=== PATIENT | female | born 1945 | race Caucasian/White ===

== ENCOUNTER → 2017-03-31 | Outpatient (CLI) | payer MEDICARE, BC ==
--- NOTE | 2017-04-03 06:52 | MM ---
Reason for exam: screening (asymptomatic). Last mammogram was performed 1 year and 3 months ago. History: Patient is postmenopausal. Benign stereotactic core biopsy of the right breast, 2008. Benign excisional biopsy of the right breast, 2006. Excisional biopsy of the right breast. Took estrogen for 1 year. Took progesterone for 1 year. Physical Findings: A clinical breast exam by your physician is recommended on an annual basis and results should be correlated with mammographic findings. MG 3D Screening Mammo W/Cad Bilateral CC and MLO view(s) were taken. Prior study comparison: December 28, 2015, bilateral MG 3d screening mammo w/cad. October 27, 2014, bilateral MG screening mammo w CAD. The breast tissue is heterogeneously dense. This may lower the sensitivity of mammography. Finding: There are typically benign diffuse/scattered calcifications in both breasts. No suspicious finding. No significant changes in finding since December 28, 2015 and October 27, 2014. ASSESSMENT: Benign, BI-RAD 2 RECOMMENDATION: Routine screening mammogram of both breasts in 1 year.
== END | disposition home or self-care (01) ==
LOC: RADMAMWWP 07:59
PROVIDERS: ATTEND Family Medicine
DX: Z12.31 Encounter for screening mammogram for malignant neoplasm of breast (principal)
CPT/HCPCS: 77063; G0202

== ENCOUNTER → 2017-04-20 | Outpatient (CLI) | payer MEDICARE, BC ==
--- NOTE | 2017-04-20 11:29 | FL ---
EXAMINATION TYPE: FL barium swallow DATE OF EXAM: 04/20/2017 CLINICAL HISTORY: Dysphagia per order. History of hiatal hernia and distal esophageal stricture on se veral prior scopes most recent beginning of this year. Patient has symptoms of reflux with vomiting. TECHNIQUE: A double contrast esophagram is performed utilizing air and barium. A total of 9 seconds of fluoroscopic time was utilized during procedure. 29 spot images were acquired and sent to PACS. COMPARISON: Prior upper GI study September 04, 2015 FINDINGS: The esophagus shows diffuse prominence or dilatation with abnormal secondary and tertiary c ontractions redemonstrated. Findings were more pronounced on prone imaging. Small sliding-type hiatal hernia was redemonstrated. There is persistent smooth narrowing in which a mild stricture is not exc luded at gastroesophageal junction. No significant gastroesophageal reflux was seen during real time performance of this study today. IMPRESSION: Similar findings to prior study there is esophageal dysmotility with small sliding-type h iatal hernia and perhaps mild stricture at gastroesophageal junction.
== END | disposition home or self-care (01) ==
LOC: RADFLMAIN 10:01
PROVIDERS: ATTEND Internal Medicine Gastroenterology
DX: K44.9 Diaphragmatic hernia without obstruction or gangrene (principal); K22.4 Dyskinesia of esophagus; R13.10 Dysphagia, unspecified
CPT/HCPCS: 74220

== ENCOUNTER → 2018-05-08 | Outpatient (CLI) | payer MEDICARE, BC ==
--- NOTE | 2018-05-10 09:35 | MM ---
Reason for exam: screening (asymptomatic). Last mammogram was performed 1 year and 1 month ago. History: Patient is postmenopausal. Benign stereotactic core biopsy of the right breast, 2008. Benign excisional biopsy of the right breast, 2006. Excisional biopsy of the right breast. Took estrogen for 1 year. Took progesterone for 1 year. Physical Findings: A clinical breast exam by your physician is recommended on an annual basis and results should be correlated with mammographic findings. MG 3D Screening Mammo W/Cad Bilateral CC, MLO, and XCCL view(s) were taken. Prior study comparison: March 31, 2017, bilateral MG 3d screening mammo w/cad. December 28, 2015, bilateral MG 3d screening mammo w/cad. Finding: There is a new typically benign 15 x 8 mm equal density (isodense), circumscribed oval mass located 7.5 cm from the nipple in the 8 o'clock lower outer quadrant, middle position of the right breast. New finding since March 31, 2017 and December 28, 2015. ASSESSMENT: Incomplete: need additional imaging evaluation, BI-RAD 0 RECOMMENDATION: Special view mammogram and ultrasound of the right breast. [facility] will attempt to contact patient to return for supplemental views and ultrasound.
== END | disposition home or self-care (01) ==
LOC: RADMAMWWP 09:11
PROVIDERS: ATTEND Family Medicine
DX: Z12.31 Encounter for screening mammogram for malignant neoplasm of breast (principal)
CPT/HCPCS: 77063; 77067

== ENCOUNTER → 2018-05-17 | Outpatient (CLI) | payer MEDICARE, BC ==
--- NOTE | 2018-05-17 14:37 | MM ---
Reason for exam: additional evaluation requested from abnormal screening. Last mammogram was performed less than 1 month ago. History: Patient is postmenopausal. Benign stereotactic core biopsy of the right breast, 2008. Benign excisional biopsy of the right breast, 2006. Excisional biopsy of the right breast. Took estrogen for 1 year. Took progesterone for 1 year. Physical Findings: Nurse did not find any significant physical abnormalities on exam. MG 3D Work Up W/Cad RT Spot compression CC, spot compression MLO, and ML view(s) were taken of the right breast. Prior study comparison: May 08, 2018, bilateral MG 3d screening mammo w/cad. March 31, 2017, bilateral MG 3d screening mammo w/cad. Finding: There is a 12 mm circumscribed oval mass in the right breast persists on additional views. These results were verbally communicated with the patient and result sheet given to the patient on 05/17/18. ASSESSMENT: Incomplete: need additional imaging evaluation, BI-RAD 0 RECOMMENDATION: Ultrasound of the right breast.
--- NOTE | 2018-05-17 14:39 | USB ---
Reason for exam: additional evaluation requested from abnormal screening. History: Patient is postmenopausal. Benign stereotactic core biopsy of the right breast, 2008. Benign excisional biopsy of the right breast, 2006. Excisional biopsy of the right breast. Took estrogen for 1 year. Took progesterone for 1 year. US Breast Workup Limited RT Right limited breast ultrasound including focal area of concern, retroareolar and axilla demonstrates a 0.6 x 0.3 x 0.4cm oval, cystic lesion at 11 o'clock, a 1.1 x 0.6 x 0.8cm oval, cystic lesion at 9 o'clock believed to correspond to mammographic abnormality, axilla nodes and multiple large calcifications. These results were verbally communicated with the patient and result sheet given to the patient on 05/17/18. ASSESSMENT: Benign, BI-RAD 2 RECOMMENDATION: Return to routine screening mammogram schedule for both breasts.
== END | disposition home or self-care (01) ==
LOC: RADMAMWWP 12:55
PROVIDERS: ATTEND Family Medicine
DX: R92.8 Other abnormal and inconclusive findings on diagnostic imaging of breast (principal)
CPT/HCPCS: 77065; 76642; G0279; 77061

== ENCOUNTER 2018-09-18 11:56 | Inpatient (IN) | payer MEDICARE, BC ==
[2018-09-18 14:03] LABS: Appearance,Urine Clear (Clear); Bilirubin,Urine Negative (Negative); Blood,Urine Negative (Negative); Color,Urine Light Yellow; Glucose,Urine (UA) Negative (Negative); Ketones,Urine Negative (Negative); Leukocyte Esterase,Urine Trace (Negative); Nitrite,Urine Negative (Negative); Protein,Urine Negative (Negative); RBC,Urine 10 /hpf (0-5); Specific Gravity,Urine 1.006 (1.001-1.035); Squamous Epithelial Cell,Urine 1 /hpf (0-4); Urobilinogen,Urine <2.0 mg/dL (<2.0)
[2018-09-18 14:13] LABS: Amphetamine Screen,Urine Not Detected (NotDetected); Barbiturate Screen,Urine Not Detected (NotDetected); Benzodiazepines Screen,Urine Detected (NotDetected); Cocaine Screen,Urine Not Detected (NotDetected); Methadone Screen, Urine Not Detected (NotDetected); Opiate Screen,Urine Not Detected (NotDetected); Oxycodone Screen, Urine Not Detected (NotDetected); Phencyclidine Screen,Urine Not Detected (NotDetected); Tricyclic Antidepressant,Urine Not Detected (NotDetected); Urn Cannabinoid Scrn Not Detected (NotDetected)
[2018-09-18] MEDS ORDERED: LORazepam 1 MG TAB PO STA (14:18)
--- NOTE | 2018-09-18 14:30 | XR ---
EXAMINATION TYPE: XR chest 2V DATE OF EXAM: 09/18/2018 COMPARISON: Chest x-ray June 13, 2016 HISTORY: History of hypertension with chest pain. TECHNIQUE: Frontal and lateral views of the chest are obtained. FINDINGS: Elevated left hemidiaphragm is now present. There is right infrahilar linear atelectasis or scarring. Left lung is clear. No pleural effusion or pneumothorax is evident bilaterally.. The card iac silhouette size is upper limits of normal. The osseous structures are intact. Cholecystectomy c lips are noted on lateral view. IMPRESSION: No suspicious acute pulmonary process.
[2018-09-18 14:38] LABS: Basophils # (A) 0.1 k/uL (0-0.2); Basophils % (A) 1 %; Eosinophils # (A) 0.4 k/uL (0-0.7); Eosinophils % (A) 5 %; HGB 14.3 gm/dL (11.4-16.0); Lymphocytes # (A) 1.9 k/uL (1.0-4.8); Lymphocytes % (A) 24 %; MCH 30.1 pg (25.0-35.0); MCHC 32.5 g/dL (31.0-37.0); MCV 92.6 fL (80.0-100.0); Mean Platelet Volume 6.5; Monocytes # (A) 0.5 k/uL (0-1.0); Monocytes % (A) 7 %; Neutrophils # (A) 4.7 k/uL (1.3-7.7); Neutrophils % (A) 61 %; Platelet Count 244 k/uL (150-450); RBC 4.76 m/uL (3.80-5.40); RDW 14.1 % (11.5-15.5); WBC 7.6 k/uL (3.8-10.6)
[2018-09-18 14:57] LABS: Albumin 4.2 g/dL (3.5-5.0); Calcium 9.5 mg/dL (8.4-10.2); Potassium 4.5 mmol/L (3.5-5.1); Total Bilirubin 0.4 mg/dL (0.2-1.3); Total Protein 7.4 g/dL (6.3-8.2)
[2018-09-18] MEDS ORDERED: ACETAMINOPHEN TAB 325 MG TAB PO PRN (15:33)
[2018-09-18] MEDS ORDERED: MAGNESIUM HYDROXIDE 2,400 MG/10 ML CUP PO PRN (15:33)
--- NOTE | 2018-09-18 17:04 | ED ---
Psych HPI - General Chief Complaint: Psychiatric Symptoms Stated Complaint: Mental health Time Seen by Provider: 09/18/18 12:48 Source: patient Mode of arrival: ambulatory - History of Present Illness Initial Comments: 73-year-old female presenting today for chief complaint depression and suicidal thoughts and plan. Patient states she struggled depression since 1999, she states she has had previous ECT therapy, she states the last time was in the year 1999. She states she is on multiple medications for depression. She states she has been compliant with these medications. Patient states she recently lost her brother from suicide, and is fighting with her daughter which has caused increased depression. Patient denies any abuse at home, homicidal ideations. Patient states she does have a plan for suicide, she states that she was in her car with a closed garage and allowed the exhaust to kill her. Patient states she plan to do this tomorrow as her would be out of town. Patient denies ingesting any acetaminophen or salicylates states. She denies any self-harm. Patient states she does have on-and-off chest pain, she states this has been chronic ongoing for years and she has been evaluated by cardiology regularly. She denies any current chest pain, dyspnea, dyspnea on exertion. Remaining ROS (-), patient denies any recent fever, chills, back pain , abdominal pain, nausea or vomiting, numbness or tingling, dysuria or hematuria , constipation or diarrhea, headaches or visual changes, or any other complaints. - Related Data Home Medications Medication Instructions Recorded Confirmed Aspirin 81 mg PO HS 10/22/15 09/18/18 Docusate [Colace] 100 mg PO QAM 10/22/15 09/18/18 LORazepam [Ativan] 1 mg PO BID PRN 10/22/15 09/18/18 Oxybutynin Chloride [Ditropan] 5 mg PO QAM 10/22/15 09/18/18 Polyethylene Glycol 3350 [Miralax] 17 gm PO DAILY 10/22/15 09/18/18 Ranitidine HCl [Zantac] 150 mg PO HS 10/22/15 09/18/18 Simvastatin [Zocor] 20 mg PO HS 10/22/15 09/18/18 Vitamin E (Dl,Tocopheryl Acet) 400 unit PO HS 10/22/15 09/18/18 [Vitamin E] amLODIPine BESYLATE [Norvasc] 5 mg PO DAILY 10/22/15 09/18/18 lamoTRIgine [Lamotrigine] 100 mg PO QAM 10/22/15 09/18/18 lamoTRIgine [Lamotrigine] 200 mg PO PC-SUPPER 10/22/15 09/18/18 Atenolol [Tenormin] 25 mg PO DAILY 06/13/16 09/18/18 Cholecalciferol [Vitamin D3] 2,000 unit PO DAILY 06/13/16 09/18/18 Cyanocobalamin [Vitamin B-12] 1,000 mcg PO DAILY 06/13/16 09/18/18 DULoxetine HCL [Cymbalta] 60 mg PO BID 06/13/16 09/18/18 Levothyroxine Sodium [Synthroid] 88 mcg PO DAILY 06/13/16 09/18/18 traZODone HCL 100 mg PO HS 06/13/16 09/18/18 Biotin 5 mg PO DAILY 09/18/18 09/18/18 L.acidoph,Paracasei, B.lactis 1 cap PO DAILY 09/18/18 09/18/18 [Probiotic] Oxybutynin Chloride [Ditropan] 10 mg PO HS 09/18/18 09/18/18 Allergies Allergy/AdvReac Type Severity Reaction Status Date / Time aripiprazole [From Abilify] Allergy Nausea & Verified 09/18/18 16:31 Vomiting chlorpromazine HCl Allergy "PASSED Verified 09/18/18 16:31 [From Thorazine] OUT" codeine Allergy SEVERE Verified 09/18/18 16:31 VOMITNG, PASSED OUT Review of Systems ROS Statement: Those systems with pertinent positive or pertinent negative responses have been documented in the HPI. ROS Other: All systems not noted in ROS Statement are negative. Past Medical History Past Medical History: GERD/Reflux, Hyperlipidemia, Hypertension, Osteoarthritis (OA), Thyroid Disorder History of Any Multi-Drug Resistant Organisms: None Reported Past Surgical History: Hysterectomy, Joint Replacement, Tubal Ligation Additional Past Surgical History / Comment(s): CATARACT -BILATERAL , RIGHT SHOULDER, TOTAL LEFT KNEE. Esophageal opening surgery, robotic. Past Anesthesia/Blood Transfusion Reactions: Motion Sickness Smoking Status: Never smoker - Past Family History Mother Family Medical History: Coronary Artery Disease (CAD), CVA/TIA General Exam - General Exam Comments Initial Comments: General: The patient is awake and alert, in no distress, and does not appear acutely ill. Eye: +3 mm pupils are equal, round and reactive to light, extra-ocular movements are intact. No nystagmus. There is normal conjunctiva bilaterally. No signs of icterus. Ears, nose, mouth and throat: There are moist mucous membranes and no oral lesions. Neck: The neck is supple, there is no tenderness or JVD. Cardiovascular: There is a regular rate and rhythm. No murmur, rub or gallop is appreciated. Respiratory: Lungs are clear to auscultation, respirations are non-labored, breath sounds are equal. No wheezes, stridor, rales, or rhonchi. Gastrointestinal: Soft, non-distended, non-tender abdomen without masses or organomegaly noted. There is no rebound or guarding present. . Bowel sounds are unremarkable. Musculoskeletal: Normal ROM, no tenderness. Strength 5/5. Sensation intact. Pulses equal bilaterally 2+. Neurological: A&O x 3. CN II-XII intact, There are no obvious motor or sensory deficits. Coordination appears grossly intact. Speech is normal. Skin: Skin is warm and dry and no rashes or lesions are noted. Psychiatric: Cooperative, flat affect, appears sad-tearful. Limitations: no limitations Course Vital Signs 09/18/18 12:17 Temperature 98.4 F Pulse Rate 68 Respiratory 18 Rate Blood Pressure 113/77 O2 Sat by Pulse 95 Oximetry - Reevaluation(s) Reevaluation #1: Patient did complain of chest pain, she states this happens she gets anxiety and usually it is alleviated by Ativan. EKG was obtained at this time revealing normal sinus, normal EKG. Patient troponin negative. 09/18/18 Medical Decision Making - Medical Decision Making 73-year-old female presented for suicidal ideations with plan. Patient is medically cleared for EPS evaluation. EPS recommended admission, but was available on floor. Patient pending admission to floor, remained stable. Patient was given Ativan in the emergency department for anxiety. She states this relieved symptoms. Patient denies any current chest pain. ROS (-) aside from depression/suicidal thoughts. Patient was transferred to floor in stable condition. - Lab Data Result diagrams: 09/18/18 14:05 09/18/18 14:05 Lab Results 09/18/18 09/18/18 09/18/18 Range/Units 12:34 14:05 14:05 WBC 7.6 (3.8-10.6) k/uL RBC 4.76 (3.80-5.40) m/uL Hgb 14.3 (11.4-16.0) gm/dL Hct 44.0 (34.0-46.0) % MCV 92.6 (80.0-100.0) fL MCH 30.1 (25.0-35.0) pg MCHC 32.5 (31.0-37.0) g/dL RDW 14.1 (11.5-15.5) % Plt Count 244 (150-450) k/uL Neutrophils % 61 % Lymphocytes % 24 % Monocytes % 7 % Eosinophils % 5 % Basophils % 1 % Neutrophils # 4.7 (1.3-7.7) k/uL Lymphocytes # 1.9 (1.0-4.8) k/uL Monocytes # 0.5 (0-1.0) k/uL Eosinophils # 0.4 (0-0.7) k/uL Basophils # 0.1 (0-0.2) k/uL Sodium 145 (137-145) mmol/L Potassium 4.5 (3.5-5.1) mmol/L Chloride 107 (98-107) mmol/L Carbon Dioxide 29 (22-30) mmol/L Anion Gap 9 mmol/L BUN 18 H (7-17) mg/dL Creatinine 0.92 (0.52-1.04) mg/dL Est GFR (CKD-EPI)AfAm 73 (>60 ml/min/1.73 sqM) Est GFR (CKD-EPI)NonAf 63 (>60 ml/min/1.73 sqM) Glucose 80 (74-99) mg/dL Calcium 9.5 (8.4-10.2) mg/dL Total Bilirubin 0.4 (0.2-1.3) mg/dL AST 24 (14-36) U/L ALT 35 (9-52) U/L Alkaline Phosphatase 76 (38-126) U/L Troponin I (0.000-0.034) ng/mL Total Protein 7.4 (6.3-8.2) g/dL Albumin 4.2 (3.5-5.0) g/dL Urine Color Light Yellow Urine Appearance Clear (Clear) Urine pH 6.0 (5.0-8.0) Ur Specific Rawlings 1.006 (1.001-1.035) Urine Protein Negative (Negative) Urine Glucose (UA) Negative (Negative) Urine Ketones Negative (Negative) Urine Blood Negative (Negative) Urine Nitrite Negative (Negative) Urine Bilirubin Negative (Negative) Urine Urobilinogen <2.0 (<2.0) mg/dL Ur Leukocyte Esterase Trace H (Negative) Urine RBC 10 H (0-5) /hpf Urine WBC 4 (0-5) /hpf Ur Squamous Epith Cells 1 (0-4) /hpf Urine Opiates Screen Not Detected (NotDetected) Ur Oxycodone Screen Not Detected (NotDetected) Urine Methadone Screen Not Detected (NotDetected) Ur Propoxyphene Screen Not Detected (NotDetected) Ur Barbiturates Screen Not Detected (NotDetected) U Tricyclic Antidepress Not Detected (NotDetected) Ur Phencyclidine Scrn Not Detected (NotDetected) Ur Amphetamines Screen Not Detected (NotDetected) U Methamphetamines Scrn Not Detected (NotDetected) U Benzodiazepines Scrn Detected H (NotDetected) Urine Cocaine Screen Not Detected (NotDetected) U Marijuana (THC) Screen Not Detected (NotDetected) 09/18/18 Range/Units 14:05 WBC (3.8-10.6) k/uL RBC (3.80-5.40) m/uL Hgb (11.4-16.0) gm/dL Hct (34.0-46.0) % MCV (80.0-100.0) fL MCH (25.0-35.0) pg MCHC (31.0-37.0) g/dL RDW (11.5-15.5) % Plt Count (150-450) k/uL Neutrophils % % Lymphocytes % % Monocytes % % Eosinophils % % Basophils % % Neutrophils # (1.3-7.7) k/uL Lymphocytes # (1.0-4.8) k/uL Monocytes # (0-1.0) k/uL Eosinophils # (0-0.7) k/uL Basophils # (0-0.2) k/uL Sodium (137-145) mmol/L Potassium (3.5-5.1) mmol/L Chloride (98-107) mmol/L Carbon Dioxide (22-30) mmol/L Anion Gap mmol/L BUN (7-17) mg/dL Creatinine (0.52-1.04) mg/dL Est GFR (CKD-EPI)AfAm (>60 ml/min/1.73 sqM) Est GFR (CKD-EPI)NonAf (>60 ml/min/1.73 sqM) Glucose (74-99) mg/dL Calcium (8.4-10.2) mg/dL Total Bilirubin (0.2-1.3) mg/dL AST (14-36) U/L ALT (9-52) U/L Alkaline Phosphatase (38-126) U/L Troponin I <0.012 (0.000-0.034) ng/mL Total Protein (6.3-8.2) g/dL Albumin (3.5-5.0) g/dL Urine Color Urine Appearance (Clear) Urine pH (5.0-8.0) Ur Specific Rawlings (1.001-1.035) Urine Protein (Negative) Urine Glucose (UA) (Negative) Urine Ketones (Negative) Urine Blood (Negative) Urine Nitrite (Negative) Urine Bilirubin (Negative) Urine Urobilinogen (<2.0) mg/dL Ur Leukocyte Esterase (Negative) Urine RBC (0-5) /hpf Urine WBC (0-5) /hpf Ur Squamous Epith Cells (0-4) /hpf Urine Opiates Screen (NotDetected) Ur Oxycodone Screen (NotDetected) Urine Methadone Screen (NotDetected) Ur Propoxyphene Screen (NotDetected) Ur Barbiturates Screen (NotDetected) U Tricyclic Antidepress (NotDetected) Ur Phencyclidine Scrn (NotDetected) Ur Amphetamines Screen (NotDetected) U Methamphetamines Scrn (NotDetected) U Benzodiazepines Scrn (NotDetected) Urine Cocaine Screen (NotDetected) U Marijuana (THC) Screen (NotDetected) - EKG Data EKG Comments: A 12-lead EKG was performed and shows the following: Rate is 62bpm, and rhythm is normal sinus. There are normal QRS complexes and normal R-wave progression. ST segments have no elevation or depression, and MT segments appear normal. Disposition Clinical Impression: Suicidal thoughts Disposition: ADMITTED IP TO THIS HOSP Condition: Stable Is patient prescribed a controlled substance at d/c from ED?: No Decision to Admit Reason: Admit from EC Decision Date: 09/18/18 Decision Time: 14:00
[2018-09-18] MEDS: ATORVASTATIN 10 MG TAB PO SCH (20:51)
[2018-09-18] MEDS: ASPIRIN 81 MG PO SCH (20:51)
[2018-09-18] MEDS: DULoxetine HCL 60 MG CAPSULE.DR PO SCH (20:51)
[2018-09-18] MEDS: FAMOTIDINE 20 MG TAB PO SCH (20:51)
[2018-09-18] MEDS: lamoTRIgine 100 MG TAB PO SCH (20:51)
[2018-09-18] MEDS: VITAMIN E (DL,TOCOPHERYL ACET) 400 UNIT CAP PO SCH (20:52)
[2018-09-18] MEDS: OXYBUTYNIN CHLORIDE 5 MG TAB PO SCH (20:52)
[2018-09-18] MEDS: LORazepam 1 MG TAB PO PRN (20:57)
[2018-09-18] MEDS ORDERED: traZODone HCL 50 MG TAB PO SCH (21:00)
[2018-09-19] MEDS: LEVOTHYROXINE 88 MCG TAB PO SCH (06:25)
[2018-09-19] MEDS: ATENOLOL 25 MG TAB PO SCH (08:01)
[2018-09-19] MEDS: OXYBUTYNIN CHLORIDE 5 MG TAB PO SCH ×2 (08:01→21:20)
[2018-09-19] MEDS: POLYETHYLENE GLYCOL 3350 17 GM POWD.PACK PO SCH (08:01)
[2018-09-19] MEDS: amLODIPine 5 MG TAB PO SCH (08:01)
[2018-09-19] MEDS: DOCUSATE 100 MG CAP PO SCH (08:01)
[2018-09-19] MEDS: DULoxetine HCL 60 MG CAPSULE.DR PO SCH (08:01)
[2018-09-19] MEDS: lamoTRIgine 100 MG TAB PO SCH ×2 (08:01→21:18)
[2018-09-19] MEDS ORDERED: NON-FORMULARY DRUG (Biotin [Biotin] 5 MG) PO SCH (09:00)
[2018-09-19 11:18] VITALS: BMI 31.2
[2018-09-19] MEDS: CYANOCOBALAMIN 500 MCG TAB PO SCH (12:05)
[2018-09-19] MEDS: CHOLECALCIFEROL 1,000 UNIT TAB PO SCH (12:05)
--- NOTE | 2018-09-19 12:36 | P.HP ---
Psychiatric H&P - . H&P Date: 09/19/18 History & Physical: Allergies Allergy/AdvReac Type Severity Reaction Status Date / Time aripiprazole [From Abilify] Allergy Nausea & Verified 09/18/18 16:31 Vomiting chlorpromazine HCl Allergy "PASSED Verified 09/18/18 16:31 [From Thorazine] OUT" codeine Allergy SEVERE Verified 09/18/18 16:31 VOMITNG, PASSED OUT Vital Signs Temp 98.5 F 09/19/18 06:14 Pulse 65 09/19/18 06:14 Resp 16 09/19/18 06:14 BP 123/64 09/19/18 06:14 Pulse Ox 95 09/18/18 12:17 Intake & Output 09/18/18 09/19/18 09/19/18 18:59 06:59 18:59 Intake Total 10 Balance 10 Weight 72.575 kg Intake: Amount of Fluid Infused ( 10 ml) Laboratory Last Values WBC 7.6 k/uL (3.8-10.6) 09/18/18 14:05 RBC 4.76 m/uL (3.80-5.40) 09/18/18 14:05 Hgb 14.3 gm/dL (11.4-16.0) 09/18/18 14:05 Hct 44.0 % (34.0-46.0) 09/18/18 14:05 MCV 92.6 fL (80.0-100.0) 09/18/18 14:05 MCH 30.1 pg (25.0-35.0) 09/18/18 14:05 MCHC 32.5 g/dL (31.0-37.0) 09/18/18 14:05 RDW 14.1 % (11.5-15.5) 09/18/18 14:05 Plt Count 244 k/uL (150-450) 09/18/18 14:05 Neutrophils % 61 % 09/18/18 14:05 Lymphocytes % 24 % 09/18/18 14:05 Monocytes % 7 % 09/18/18 14:05 Eosinophils % 5 % 09/18/18 14:05 Basophils % 1 % 09/18/18 14:05 Neutrophils # 4.7 k/uL (1.3-7.7) 09/18/18 14:05 Lymphocytes # 1.9 k/uL (1.0-4.8) 09/18/18 14:05 Monocytes # 0.5 k/uL (0-1.0) 09/18/18 14:05 Eosinophils # 0.4 k/uL (0-0.7) 09/18/18 14:05 Basophils # 0.1 k/uL (0-0.2) 09/18/18 14:05 Sodium 145 mmol/L (137-145) 09/18/18 14:05 Potassium 4.5 mmol/L (3.5-5.1) 09/18/18 14:05 Chloride 107 mmol/L (98-107) 09/18/18 14:05 Carbon Dioxide 29 mmol/L (22-30) 09/18/18 14:05 Anion Gap 9 mmol/L 09/18/18 14:05 BUN 18 mg/dL (7-17) H 09/18/18 14:05 Creatinine 0.92 mg/dL (0.52-1.04) 09/18/18 14:05 Est GFR (CKD-EPI)AfAm 73 (>60 ml/min/1.73 sqM) 09/18/18 14:05 Est GFR (CKD-EPI)NonAf 63 (>60 ml/min/1.73 sqM) 09/18/18 14:05 Glucose 80 mg/dL (74-99) 09/18/18 14:05 Calcium 9.5 mg/dL (8.4-10.2) 09/18/18 14:05 Total Bilirubin 0.4 mg/dL (0.2-1.3) 09/18/18 14:05 AST 24 U/L (14-36) 09/18/18 14:05 ALT 35 U/L (9-52) 09/18/18 14:05 Alkaline Phosphatase 76 U/L (38-126) 09/18/18 14:05 Troponin I <0.012 ng/mL (0.000-0.034) 09/18/18 14:05 Total Protein 7.4 g/dL (6.3-8.2) 09/18/18 14:05 Albumin 4.2 g/dL (3.5-5.0) 09/18/18 14:05 Triglycerides 114 mg/dL (<150) 09/19/18 07:22 Cholesterol 162 mg/dL (<200) 09/19/18 07:22 LDL Cholesterol, Calc 102 mg/dL (0-99) H 09/19/18 07:22 HDL Cholesterol 37 mg/dL (40-60) L 09/19/18 07:22 TSH 0.200 mIU/L (0.465-4.680) L 09/19/18 07:22 Urine Color Light Yellow 09/18/18 12:34 Urine Appearance Clear (Clear) 09/18/18 12:34 Urine pH 6.0 (5.0-8.0) 09/18/18 12:34 Ur Specific [place] 1.006 (1.001-1.035) 09/18/18 12:34 Urine Protein Negative (Negative) 09/18/18 12:34 Urine Glucose (UA) Negative (Negative) 09/18/18 12:34 Urine Ketones Negative (Negative) 09/18/18 12:34 Urine Blood Negative (Negative) 09/18/18 12:34 Urine Nitrite Negative (Negative) 09/18/18 12:34 Urine Bilirubin Negative (Negative) 09/18/18 12:34 Urine Urobilinogen <2.0 mg/dL (<2.0) 09/18/18 12:34 Ur Leukocyte Esterase Trace (Negative) H 09/18/18 12:34 Urine RBC 10 /hpf (0-5) H 09/18/18 12:34 Urine WBC 4 /hpf (0-5) 09/18/18 12:34 Ur Squamous Epith Cells 1 /hpf (0-4) 09/18/18 12:34 Urine Opiates Screen Not Detected (NotDetected) 09/18/18 12:34 Ur Oxycodone Screen Not Detected (NotDetected) 09/18/18 12:34 Urine Methadone Screen Not Detected (NotDetected) 09/18/18 12:34 Ur Propoxyphene Screen Not Detected (NotDetected) 09/18/18 12:34 Ur Barbiturates Screen Not Detected (NotDetected) 09/18/18 12:34 U Tricyclic Antidepress Not Detected (NotDetected) 09/18/18 12:34 Ur Phencyclidine Scrn Not Detected (NotDetected) 09/18/18 12:34 Ur Amphetamines Screen Not Detected (NotDetected) 09/18/18 12:34 U Methamphetamines Scrn Not Detected (NotDetected) 09/18/18 12:34 U Benzodiazepines Scrn Detected (NotDetected) H 09/18/18 12:34 Urine Cocaine Screen Not Detected (NotDetected) 09/18/18 12:34 U Marijuana (THC) Screen Not Detected (NotDetected) 09/18/18 12:34 Assessment and Plan Assessment: 73-year-old female presenting today for chief complaint depression and suicidal thoughts and plan. Patient states she struggled depression since 1999, she states she has had previous ECT therapy, she states the last time was in the year 1999. She states she is on multiple medications for depression. She states she has been compliant with these medications. Patient states she recently lost her brother from suicide, and is fighting with her daughter which has caused increased depression. Patient denies any abuse at home, homicidal ideations. Patient states she does have a plan for suicide, she states that she was in her car with a closed garage and allowed the exhaust to kill her. Patient states she plan to do this tomorrow as her would be out of town. Patient denies ingesting any acetaminophen or salicylates states. She denies any self-harm. Patient states she does have on-and-off chest pain, she states this has been chronic ongoing for years and she has been evaluated by cardiology regularly. She denies any current chest pain, dyspnea, dyspnea on exertion. Remaining ROS (-), patient denies any recent fever, chills, back pain , abdominal pain, nausea or vomiting, numbness or tingling, dysuria or hematuria , constipation or diarrhea, headaches or visual changes, or any other complaints. pt states that she came to ER because she was having a "mental breakdown." pt reports, "I just couldn't handle everything this week." pt is very tearful while speaking and frequently states that she is a "problem" and "burden" to everyone. pt reports that her brother completed suicide about 2 months ago and she's having difficulty coping with this pt reports that her plan is to wait until goes to work, lock herself in the garage, and turn the car on. pt denies previous suicide attempts, but states , "I thought about it a lot." pt states that she sees dark shapes moving around sometimes, but admits to current visual hallucinations. pt also reports that she occasionally feels as though there is "stuff crawling up my arm." pt reports that she has a lot of anxiety about her daughter and the government that seems to be a fixed delusion. pt states, "Anxiety about things I have no control over." pt ruminates over the anxieties and it sometimes causes problems with her sleep. pt states that she has trouble with her sleeping due to racing thoughts and anxiety. pt reports, "I don't even sleep with my anymore because I'm up and down." pt denies change in appetite, but does report that she had thoracic surgery to "fix where my esophagus got narrow" and that this sometimes causes difficulty swallowing. pt states, "My brothers won't talk to me...my daughter doesn't like me. My brothers live in [place], so I guess it's hard, but they can call me." pt also states, "Only my one daughter and would notice if I was gone." pt began to cry harder when asked about support system and was unable to discuss supports further. - Related Data Home Medications Medication Instructions Recorded Confirmed Aspirin 81 mg PO HS 10/22/15 09/18/18 Docusate [Colace] 100 mg PO QAM 10/22/15 09/18/18 LORazepam [Ativan] 1 mg PO BID PRN 10/22/15 09/18/18 Oxybutynin Chloride [Ditropan] 5 mg PO QAM 10/22/15 09/18/18 Polyethylene Glycol 3350 [Miralax] 17 gm PO DAILY 10/22/15 09/18/18 Ranitidine HCl [Zantac] 150 mg PO HS 10/22/15 09/18/18 Simvastatin [Zocor] 20 mg PO HS 10/22/15 09/18/18 Vitamin E (Dl,Tocopheryl Acet) 400 unit PO HS 10/22/15 09/18/18 [Vitamin E] amLODIPine BESYLATE [Norvasc] 5 mg PO DAILY 10/22/15 09/18/18 lamoTRIgine [Lamotrigine] 100 mg PO QAM 10/22/15 09/18/18 lamoTRIgine [Lamotrigine] 200 mg PO PC-SUPPER 10/22/15 09/18/18 Atenolol [Tenormin] 25 mg PO DAILY 06/13/16 09/18/18 Cholecalciferol [Vitamin D3] 2,000 unit PO DAILY 06/13/16 09/18/18 Cyanocobalamin [Vitamin B-12] 1,000 mcg PO DAILY 06/13/16 09/18/18 DULoxetine HCL [Cymbalta] 60 mg PO BID 06/13/16 09/18/18 Levothyroxine Sodium [Synthroid] 88 mcg PO DAILY 06/13/16 09/18/18 traZODone HCL 100 mg PO HS 06/13/16 09/18/18 Biotin 5 mg PO DAILY 09/18/18 09/18/18 L.acidoph,Paracasei, B.lactis 1 cap PO DAILY 09/18/18 09/18/18 [Probiotic] Oxybutynin Chloride [Ditropan] 10 mg PO HS 09/18/18 09/18/18 Allergies Allergy/AdvReac Type Severity Reaction Status Date / Time aripiprazole [From Abilify] Allergy Nausea & Verified 09/18/18 16:31 Vomiting chlorpromazine HCl Allergy "PASSED Verified 09/18/18 16:31 [From Thorazine] OUT" codeine Allergy SEVERE Verified 09/18/18 16:31 VOMITNG, PASSED OUT Past Medical History Past Medical History: GERD/Reflux, Hyperlipidemia, Hypertension, Osteoarthritis (OA), Thyroid Disorder History of Any Multi-Drug Resistant Organisms: None Reported Past Surgical History: Hysterectomy, Joint Replacement, Tubal Ligation Additional Past Surgical History / Comment(s): CATARACT -BILATERAL , RIGHT SHOULDER, TOTAL LEFT KNEE. Esophageal opening surgery, robotic. Past Anesthesia/Blood Transfusion Reactions: Motion Sickness Smoking Status: Never smoker - Past Family History Mother Family Medical History: Coronary Artery Disease (CAD), CVA/TIA Musculoskeletal Examination - Abnormal/Involuntary Movements: [tremors] Strength: [greater than antigravity (greater than/equal to 3/5) in all extremities, weakness:] Muscle Tone: [no impairment, dystonia, hypertonic/myoclonus, rigidity, flaccid] Gait: [grossly normal, antalgic, limping, in wheelchair, wide-based] Station: [grossly normal, unsteady, in wheelchair] Mental Status Examination - General Appearance: [ casual, appears older than stated age Speech/Language: [ slow soft,] Attitude/Behavior: [ guarded, irritable, withdrawn, indifferent Mood: [ depressed, anxious, irritable, fearful, hopelessness Affect: [ flat, incongruent, labile, blunted constricted] Orientation: [time, person, place situation] Thought Content: [wnl Risk Factors: [she is suicidal (ideation, plan), not Homicidal (ideations, plan) ] Perception: [wnl, hallucinations (auditory)especially when she doesn't sleep, grandmother Thought Processes: [ concrete Concentration/Attention Span: [ impaired] [Per observation and interview with the patient] Recent Memory: [ impaired] [1 out of 3 in 3 minutes] Remote Memory: [ impaired] [past events, as related history] Intelligence: [ average] [based on history, based on vocabulary, syntax, grammar , and content] Judgement: [good] [per patient's behavior/history of present illness] Insight: [good [understanding severity of illness/history of present illness] Admitting Diagnosis: [bipolar affective disorder with depression and suicidal ideation and plan] Patient Strengths - Personal Skills: [x] Achievements: [x] Steady employment/financial stability: [x] Housing stability: [x] Able to vocalize needs: [x]Values and traditions: [x] Motivation, determination, readiness for change: [x] Setting and pursuing goals, hopes, dreams, aspirations: [x] Patient Limitations: [medication, complicated medical illness,lack of social supports Initial Plan of Care: [patient's formal voluntary and came the hospital because of his no other hospital near her primary psychiatrist and [place]. She is treated with him for at least the last 10 years and she has been on Cymbalta for the last 2 years without result. She will be placed on 15 minute checks and usual protocol for this psychiatric unit [facility]. She'll be evaluated by medicine, psychiatry, nursing staff , social work and occupational therapy. She will be expected to go to groups why she was here in the hospital and adhere to medical treatment plan. She will be discontinued on her on Cymbalta and transition to Effexor 37.5 mg to a titrated dose of 300 mg XR. Her Lamictal will be titrated to 200 mg twice a day with a Lamictal blood level obtained. Evaluation of her thyroid including T3-T4 since her TSH is not suppressed will be further evaluated. 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 Mirapex is also useful for restless leg and sleep disorders. She will be increased on her trazodone to 150 mg by mouth daily at bedtime. She also be placed on risperidone 0.25 mg by mouth daily at bedtime for the hallucinations that she experiences when she cannot sleep at nighttime.] Estimated Length of Stay: [7] Initial Discharge Plan: [home, refer back to her psychiatrist Prognosis: [good] Justification for Inpatient Hospitalization - [Hallucinations, delusions, agitation, anxiety, depression resulting in significant loss of functioning.] [Dangerous to self, others, or property with need for controlled environment.] [Emotional or behavioral conditions and complications requiring 24 hour medical and nursing care.] [Need for special drug therapy, or other therapeutic program requiring continuous hospitalization.] [Failure of social or occupational functioning.] [Inability to meet basic life and health needs.] (1) Bipolar 1 disorder, depressed Current Visit: Yes Status: Acute Priority: High Code(s): F31.9 - BIPOLAR DISORDER, UNSPECIFIED SNOMED Code(s): 02018896 (2) Suicidal thoughts Current Visit: Yes Status: Acute Priority: High Code(s): R45.851 - SUICIDAL IDEATIONS SNOMED Code(s): 9602550 Time with Patient: Greater than 30
[2018-09-19] MEDS: LORazepam 1 MG TAB PO PRN (14:14)
[2018-09-19 15:18] LABS: Hemoglobin A1C 5.6 % (4.0-6.0)
--- NOTE | 2018-09-19 19:31 | CONS ---
CONSULTATION DATE OF SERVICE: 09/19/2018 REASON FOR CONSULTATION: Advice regarding hypertension and other multiple medical issues requested by psychiatry. HISTORY OF PRESENT ILLNESS: This 73-year-old woman with a past medical history of hypertension, hyperlipidemia, DJD, history of hysterectomy, being followed by Dr. Alvarez in the outpatient setting was admitted for psychiatric evaluation. Patient has had diffuse tremors at this time. There is no history of any chest pain, palpitation. Patient also has anxiety, bipolar depression, fever, rigors, chills. PAST MEDICAL HISTORY: Hypertension, hyperlipidemia, DJD, anxiety, bipolar depression. MEDICATIONS: Home medications are reviewed and include:\ 1. Vitamin E 400 units. 2. Trazodone 100 mg q.h.s. 3. Vitamin B12 1000 mg daily. 4. Vitamin D3 2000 daily. 5. Tenormin 25 mg p.o. daily. 6. Aspirin 81 mg q.h.s. 7. Lamictal 100 mg p.o. q.a.m. 8. Probiotic 1 mg daily. 9. Colace 100 mg p.o. q.a.m. 10.Biotin 5 mg daily. 11.Ditropan 10 mg q.h.s. 12.Ativan 1 mg b.i.d. p.r.n. 13.Zocor 20 mg daily. 14.Zantac 150 mg q.h.s. 16.Ditropan 5 mg q.a.m. 17.Lamictal 200 mg at supper. 18.Synthroid 18 mcg p.o. daily. 19.Norvasc 5 mg p.o. daily. 20.Cymbalta 60 mg p.o. daily. ALLERGIES: ABILIFY, THORAZINE, CODEINE. FAMILY HISTORY: History of CAD, CVA in the family. SOCIAL HISTORY: No history of smoking. No history of alcohol. REVIEW OF SYSTEMS: ENT: Diminished hearing and diminished vision. CARDIOVASCULAR: No angina or palpitations. RESPIRATION: As mentioned earlier. GI no nausea or vomiting. : Diffuse tremors. ALLERGY/IMMUNOLOGY: No asthma or hayfever. MUSCULOSKELETAL: As mentioned earlier. HEMATOLOGY/ONCOLOGY: No history of anemia. ENDOCRINE: Hypothyroidism. CONSTITUTIONAL: As mentioned earlier. DERMATOLOGY: Negative. PSYCHIATRIC: As mentioned earlier. PHYSICAL EXAMINATION: GENERAL: The patient is alert and oriented times three. VITAL SIGNS: Pulse is 65, blood pressure 120/64. Respirations 16. Temperature 98.4. Pulse ox 94% on room air. HEENT: Oral mucosa moist. Neck is no jugular venous distention. No carotid bruit. No thyroid enlargement. No thyroid bruit. Cardiovascular system: S1, S2 muffled. RESPIRATORY: Breath sounds diminished in the bases. No rhonchi. No crackles. Abdomen is soft, nontender. No mass palpable. Legs: No edema. No swelling. NERVOUS SYSTEM: Higher functions as mentioned earlier. Moves all 4 limbs. Diffuse tremors present. No weakness. Cranial nerves 2 thru 12 grossly intact. full in all directions. No nystagmus. No hemianopia. No signs of cerebellar dysfunction. No weakness. No sensory abnormalities. Gait is normal. SKIN: No ulcer, rash or bleeding. JOINTS: No active deforming arthropathy. LABS: CBC within normal limits and LDL is 102 and TSH is 0.200. ASSESSMENT: 1. Depression, suicidal thoughts for evaluation. 2. Diffuse tremors. 3. Rule out hyperthyroidism, iatrogenic. 4. Hypertension. 5. Hyperlipidemia. 6. Degenerative joint disease. 7. Hypothyroidism. 8. History of degenerative joint disease. 9. History of cataracts. 10.Bipolar depression. 11.History of gastroesophageal reflux disease. RECOMMENDATIONS AND DISCUSSION: This 73-year-old woman who presented with multiple complex medical issues. At this time, I recommend to continue current medications, management and symptomatic treatment. I would also recommend free T3 and free T4. Otherwise resume the home medications including the Synthroid. Symptomatic treatment for the tremors may be provided. We will follow the patient closely. Patient may be asked to follow up with Dr. Alvarez in the outpatient setting. Otherwise, continue the rest of the medications. Further recommendations to follow. Thank you, Dr. Guy, for letting us participate in the care of this patient. MMODL / IJN: [id number] / [email or web address]
[2018-09-19] MEDS ORDERED: VENLAFAXINE HCL ER 37.5 MG CAP PO SCH (21:00)
[2018-09-19] MEDS ORDERED: risperiDONE 0.25 MG TAB PO SCH (21:00)
[2018-09-19] MEDS: ASPIRIN 81 MG PO SCH (21:16)
[2018-09-19] MEDS: FAMOTIDINE 20 MG TAB PO SCH (21:17)
[2018-09-19] MEDS: ATORVASTATIN 10 MG TAB PO SCH (21:17)
[2018-09-19] MEDS: PRAMIPEXOLE 0.125 MG TAB PO SCH (21:21)
[2018-09-19] MEDS: traZODone HCL 50 MG TAB PO SCH (21:23)
[2018-09-19] MEDS: VITAMIN E (DL,TOCOPHERYL ACET) 400 UNIT CAP PO SCH (21:24)
[2018-09-20] MEDS: LEVOTHYROXINE 88 MCG TAB PO SCH (07:12)
[2018-09-20] MEDS: ATENOLOL 25 MG TAB PO SCH (09:01)
[2018-09-20] MEDS: amLODIPine 5 MG TAB PO SCH (09:02)
[2018-09-20] MEDS: DOCUSATE 100 MG CAP PO SCH (09:03)
[2018-09-20] MEDS: OXYBUTYNIN CHLORIDE 5 MG TAB PO SCH ×2 (09:03→21:04)
[2018-09-20] MEDS: lamoTRIgine 100 MG TAB PO SCH ×2 (09:03→21:00)
[2018-09-20] MEDS: POLYETHYLENE GLYCOL 3350 17 GM POWD.PACK PO SCH (09:03)
[2018-09-20] MEDS: PRAMIPEXOLE 0.125 MG TAB PO SCH (09:04)
[2018-09-20] MEDS: SULFAMETHOX-TMP 800-160MG 1 EACH TAB PO SCH (09:04)
[2018-09-20] MEDS: LORazepam 1 MG TAB PO PRN ×2 (09:15→21:04)
--- NOTE | 2018-09-20 11:06 | P.PN ---
Subjective Progress Note Date: 09/20/18 Principal diagnosis: bipolar affective disorder with depression and suicidal ideation and plan pt states that she came to ER because she was having a "mental breakdown." pt reports, "I just couldn't handle everything this week." pt is very tearful while speaking and frequently states that she is a "problem" and "burden" to everyone. pt reports that her brother completed suicide about 2 months ago and she's having difficulty coping Had better night but still depressed and very anxious with shaking Objective - Vital Signs Vital signs: Vital Signs Temp 98.9 F 09/20/18 09:09 Pulse 95 09/20/18 09:09 Resp 20 09/20/18 09:09 BP 125/70 09/20/18 09:09 Pulse Ox 95 09/20/18 09:09 Intake & Output 09/19/18 09/20/18 09/20/18 18:59 06:59 18:59 Weight 72.575 kg - Labs CBC & Chem 7: 09/18/18 14:05 09/18/18 14:05 Assessment and Plan Assessment: 73-year-old female presenting today for chief complaint depression and suicidal thoughts and plan. Patient states she struggled depression since 1999, she states she has had previous ECT therapy, she states the last time was in the year 1999. She states she is on multiple medications for depression. She states she has been compliant with these medications. Patient states she recently lost her brother from suicide, and is fighting with her daughter which has caused increased depression. Patient denies any abuse at home, homicidal ideations. Patient states she does have a plan for suicide, she states that she was in her car with a closed garage and allowed the exhaust to kill her. Patient states she plan to do this tomorrow as her would be out of town. Patient denies ingesting any acetaminophen or salicylates states. She denies any self-harm. Patient states she does have on-and-off chest pain, she states this has been chronic ongoing for years and she has been evaluated by cardiology regularly. She denies any current chest pain, dyspnea, dyspnea on exertion. Remaining ROS (-), patient denies any recent fever, chills, back pain , abdominal pain, nausea or vomiting, numbness or tingling, dysuria or hematuria , constipation or diarrhea, headaches or visual changes, or any other complaints. Mental Status Examination - General Appearance: [ casual, appears older than stated age Speech/Language: [ slow soft,] Attitude/Behavior: [ guarded, irritable, withdrawn, indifferent Mood: [ depressed 8/10, anxious 8/10, irritable, fearful, hopelessness Affect: [ flat, incongruent, labile, blunted constricted] Orientation: [time, person, place situation] Thought Content: [wnl Risk Factors: [she remains suicidal (ideation, plan), not Homicidal (ideations, plan)] Perception: [wnl, hallucinations (auditory)especially when she doesn't sleep, grandmother Thought Processes: [ concrete Concentration/Attention Span: [ impaired] [Per observation and interview with the patient] Recent Memory: [ impaired] [1 out of 3 in 3 minutes] Remote Memory: [ impaired] [past events, as related history] Intelligence: [ average] [based on history, based on vocabulary, syntax, grammar , and content] Judgement: [good] [per patient's behavior/history of present illness] Insight: [good [understanding severity of illness/history of present illness] Admitting Diagnosis: [bipolar affective disorder with depression and suicidal ideation and plan] Patient Strengths - Personal Skills: [x] Achievements: [x] Steady employment/financial stability: [x] Housing stability: [x] Able to vocalize needs: [x]Values and traditions: [x] Motivation, determination, readiness for change: [x] Setting and pursuing goals, hopes, dreams, aspirations: [x] Patient Limitations: [medication, complicated medical illness,lack of social supports Initial Plan of Care: [patient's formal voluntary and came the hospital because of his no other hospital near her primary psychiatrist and [place]. She is treated with him for at least the last 10 years and she has been on Cymbalta for the last 2 years without result. She will be placed on 15 minute checks and usual protocol for this psychiatric unit 3 [facility]. She'll be evaluated by medicine, psychiatry, nursing staff , social work and occupational therapy. She will be expected to go to groups why she was here in the hospital and adhere to medical treatment plan. She will be discontinued on her on Cymbalta and transition to Effexor 37.5 mg to a titrated dose of 300 mg XR. Her Lamictal will be titrated to 200 mg twice a day with a Lamictal blood level obtained. Evaluation of her thyroid including T3-T4 since her TSH is not suppressed will be further evaluated. 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 Mirapex is also useful for restless leg and sleep disorders. She will be increased on her trazodone to 150 mg by mouth daily at bedtime. She also be placed on risperidone 0.25 mg by mouth daily at bedtime for the hallucinations that she experiences when she cannot sleep at nighttime.] Estimated Length of Stay: [6] Initial Discharge Plan: [home, refer back to her psychiatrist Prognosis: [good] Justification for Inpatient Hospitalization - [Hallucinations, delusions, agitation, anxiety, depression resulting in significant loss of functioning.] [Dangerous to self, others, or property with need for controlled environment.] [Emotional or behavioral conditions and complications requiring 24 hour medical and nursing care.] [Need for special drug therapy, or other therapeutic program requiring continuous hospitalization.] [Failure of social or occupational functioning.] [Inability to meet basic life and health needs.] (1) Bipolar 1 disorder, depressed Current Visit: Yes Status: Acute Priority: High Code(s): F31.9 - BIPOLAR DISORDER, UNSPECIFIED SNOMED Code(s): 48973500 (2) Suicidal thoughts Current Visit: Yes Status: Acute Priority: High Code(s): R45.851 - SUICIDAL IDEATIONS SNOMED Code(s): 5962816 Plan: follow and observe current treatment. Groups and [facility] increase mirapex to 0.25 mg tid; increase effexor 75 mg XR; increase risperdal 0.25 mg po qhs Time with Patient: Less than 30
[2018-09-20] MEDS: CHOLECALCIFEROL 1,000 UNIT TAB PO SCH (12:24)
[2018-09-20] MEDS: CYANOCOBALAMIN 500 MCG TAB PO SCH (12:24)
[2018-09-20] MEDS: PRAMIPEXOLE 0.25 MG TAB PO SCH ×2 (15:35→21:00)
[2018-09-20] MEDS: risperiDONE 0.25 MG TAB PO SCH (20:59)
[2018-09-20] MEDS: VITAMIN E (DL,TOCOPHERYL ACET) 400 UNIT CAP PO SCH (20:59)
[2018-09-20] MEDS ORDERED: VENLAFAXINE HCL ER 75 MG CAP PO SCH (21:00)
[2018-09-20] MEDS: ASPIRIN 81 MG PO SCH (21:00)
[2018-09-20] MEDS: FAMOTIDINE 20 MG TAB PO SCH (21:00)
[2018-09-20] MEDS: traZODone HCL 50 MG TAB PO SCH (21:00)
[2018-09-20] MEDS: ATORVASTATIN 10 MG TAB PO SCH (21:00)
[2018-09-21] MEDS: LEVOTHYROXINE 88 MCG TAB PO SCH (05:56)
--- NOTE | 2018-09-21 08:18 | P.PN ---
Subjective Progress Note Date: 09/21/18 Principal diagnosis: bipolar affective disorder with depression and suicidal ideation and plan pt states that she came to ER because she was having a "mental breakdown." pt reports, "I just couldn't handle everything this week." pt is very tearful while speaking and frequently states that she is a "problem" and "burden" to everyone. pt reports that her brother completed suicide about 2 months ago and she's having difficulty coping Had better night but still depressed and very anxious with shaking 09/21/2018: Patient states that she had a wonderful night's sleep, her shaking is decreased by 50%, anxious and worried and frightful regarding events of the other night. Less suicidal thoughts today and more encouraged. Objective - Vital Signs Vital signs: Vital Signs Temp 98.1 F 09/21/18 06:48 Pulse 71 09/21/18 06:48 Resp 18 09/21/18 06:48 BP 113/59 09/21/18 06:48 Pulse Ox 95 09/20/18 09:09 Intake & Output 09/20/18 09/21/18 09/21/18 18:59 06:59 18:59 Weight 72.575 kg - Labs CBC & Chem 7: 09/18/18 14:05 09/18/18 14:05 Assessment and Plan Assessment: 73-year-old female presenting today for chief complaint depression and suicidal thoughts and plan. Patient states she struggled depression since 1999, she states she has had previous ECT therapy, she states the last time was in the year 1999. She states she is on multiple medications for depression. She states she has been compliant with these medications. Patient states she recently lost her brother from suicide, and is fighting with her daughter which has caused increased depression. Patient denies any abuse at home, homicidal ideations. Patient states she does have a plan for suicide, she states that she was in her car with a closed garage and allowed the exhaust to kill her. Patient states she plan to do this tomorrow as her would be out of town. Patient denies ingesting any acetaminophen or salicylates states. She denies any self-harm. Patient states she does have on-and-off chest pain, she states this has been chronic ongoing for years and she has been evaluated by cardiology regularly. She denies any current chest pain, dyspnea, dyspnea on exertion. Remaining ROS (-), patient denies any recent fever, chills, back pain , abdominal pain, nausea or vomiting, numbness or tingling, dysuria or hematuria , constipation or diarrhea, headaches or visual changes, or any other complaints. Mental Status Examination - General Appearance: [ casual, appears older than stated age Speech/Language: [ slow soft,] Attitude/Behavior: [ guarded, irritable, withdrawn, indifferent Mood: [ depressed 6/10, anxious 6/10, irritable, fearful, hopelessness Affect: [ flat, incongruent, labile, blunted constricted] Orientation: [time, person, place situation] Thought Content: [wnl Risk Factors: [she remains less suicidal (ideation, plan), not Homicidal ( ideations, plan)] Perception: [wnl, hallucinations remain (auditory)especially when she doesn't sleep, grandmother Thought Processes: [ concrete Concentration/Attention Span: [ impaired] [Per observation and interview with the patient] Recent Memory: [ impaired] [1 out of 3 in 3 minutes] Remote Memory: [ impaired] [past events, as related history] Intelligence: [ average] [based on history, based on vocabulary, syntax, grammar , and content] Judgement: [good] [per patient's behavior/history of present illness] Insight: [good [understanding severity of illness/history of present illness] Admitting Diagnosis: [bipolar affective disorder with depression and suicidal ideation and plan] Initial Plan of Care: [patient's formal voluntary and came the hospital because of his no other hospital near her primary psychiatrist and [place]. She is treated with him for at least the last 10 years and she has been on Cymbalta for the last 2 years without result. She will be placed on 15 minute checks and usual protocol for this psychiatric unit 3 [facility]. She'll be evaluated by medicine, psychiatry, nursing staff , social work and occupational therapy. She will be expected to go to groups why she was here in the hospital and adhere to medical treatment plan. She will be discontinued on her on Cymbalta and transition to Effexor 37.5 mg to a titrated dose of 300 mg XR. Her Lamictal will be titrated to 200 mg twice a day with a Lamictal blood level obtained. Evaluation of her thyroid including T3-T4 since her TSH is not suppressed will be further evaluated. 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 Mirapex is also useful for restless leg and sleep disorders. She will be increased on her trazodone to 150 mg by mouth daily at bedtime. She also be placed on risperidone 0.25 mg by mouth daily at bedtime for the hallucinations that she experiences when she cannot sleep at nighttime.] Estimated Length of Stay: [6] Initial Discharge Plan: [home, refer back to her psychiatrist Prognosis: [good] Justification for Inpatient Hospitalization - [Decreased Hallucinations, denies delusions, less agitation, continues anxiety, depression resulting in significant loss of functioning.] [Dangerous to self with need for controlled environment.] [Emotional or behavioral conditions and complications requiring 24 hour medical and nursing care.] [Need for special drug therapy, or other therapeutic program requiring continuous hospitalization.] [Failure of social or occupational functioning.] [Inability to meet basic life and health needs.] (1) Bipolar 1 disorder, depressed Current Visit: Yes Status: Acute Priority: High Code(s): F31.9 - BIPOLAR DISORDER, UNSPECIFIED SNOMED Code(s): 43444506 (2) Suicidal thoughts Current Visit: Yes Status: Acute Priority: High Code(s): R45.851 - SUICIDAL IDEATIONS SNOMED Code(s): 2919315 Plan: follow and observe current treatment. Groups and [facility] increase mirapex to 0.25 mg tid; increase effexor 75 mg XR; increase risperdal 0.25 mg po qhs 09/21/2018: Chart reviewed patient evaluated maintain safety on unit 15 minute checks and will obtain patient this morning. Patient has had less tremors and thus will increase her Mirapex to 0.5 mg 3 times a day, increase her Effexor 150 mg XR by mouth daily at bedtime and she will remain on Lamictal 200 mg twice a day. She has been going to groups and active in the [facility] environment.
[2018-09-21] MEDS: ATENOLOL 25 MG TAB PO SCH (08:54)
[2018-09-21] MEDS: OXYBUTYNIN CHLORIDE 5 MG TAB PO SCH ×2 (08:54→20:59)
[2018-09-21] MEDS: amLODIPine 5 MG TAB PO SCH (08:54)
[2018-09-21] MEDS: PRAMIPEXOLE 0.5 MG TAB PO SCH ×3 (08:54→20:59)
[2018-09-21] MEDS: SULFAMETHOX-TMP 800-160MG 1 EACH TAB PO SCH (08:54)
[2018-09-21] MEDS: DOCUSATE 100 MG CAP PO SCH (08:54)
[2018-09-21] MEDS: lamoTRIgine 100 MG TAB PO SCH ×2 (08:54→20:58)
[2018-09-21] MEDS: LORazepam 1 MG TAB PO PRN ×2 (08:58→21:01)
[2018-09-21] MEDS: POLYETHYLENE GLYCOL 3350 17 GM POWD.PACK PO SCH (09:05)
[2018-09-21] MEDS: CHOLECALCIFEROL 1,000 UNIT TAB PO SCH (12:56)
[2018-09-21] MEDS: CYANOCOBALAMIN 500 MCG TAB PO SCH (12:57)
[2018-09-21] MEDS: ATORVASTATIN 10 MG TAB PO SCH (20:57)
[2018-09-21] MEDS: FAMOTIDINE 20 MG TAB PO SCH (20:57)
[2018-09-21] MEDS: ASPIRIN 81 MG PO SCH (20:57)
[2018-09-21] MEDS: traZODone HCL 50 MG TAB PO SCH (20:59)
[2018-09-21] MEDS: VENLAFAXINE HCL ER 150 MG CAP PO SCH (20:59)
[2018-09-21] MEDS: risperiDONE 0.25 MG TAB PO SCH (20:59)
[2018-09-21] MEDS: VITAMIN E (DL,TOCOPHERYL ACET) 400 UNIT CAP PO SCH (21:00)
[2018-09-22] MEDS: LEVOTHYROXINE 88 MCG TAB PO SCH (06:02)
[2018-09-22] MEDS: SULFAMETHOX-TMP 800-160MG 1 EACH TAB PO SCH (09:09)
[2018-09-22] MEDS: DOCUSATE 100 MG CAP PO SCH (09:09)
[2018-09-22] MEDS: lamoTRIgine 100 MG TAB PO SCH ×2 (09:09→21:19)
[2018-09-22] MEDS: OXYBUTYNIN CHLORIDE 5 MG TAB PO SCH ×2 (09:10→21:20)
[2018-09-22] MEDS: ATENOLOL 25 MG TAB PO SCH (09:10)
[2018-09-22] MEDS: amLODIPine 5 MG TAB PO SCH (09:10)
[2018-09-22] MEDS: PRAMIPEXOLE 0.25 MG TAB PO SCH (09:10)
[2018-09-22] MEDS: LORazepam 1 MG TAB PO PRN ×2 (09:13→21:24)
[2018-09-22] MEDS: PRAMIPEXOLE 0.5 MG TAB PO SCH ×3 (09:17→21:30)
[2018-09-22] MEDS: POLYETHYLENE GLYCOL 3350 17 GM POWD.PACK PO SCH ×2 (09:38→15:20)
[2018-09-22] MEDS: CHOLECALCIFEROL 1,000 UNIT TAB PO SCH (12:05)
[2018-09-22] MEDS: CYANOCOBALAMIN 500 MCG TAB PO SCH (12:05)
[2018-09-22] MEDS: MAG HYDROX/AL HYDROX/SIMETH 30 ML CUP PO PRN (14:49)
--- NOTE | 2018-09-22 16:54 | P.PN ---
Subjective Progress Note Date: 09/22/18 Principal diagnosis: Bipolar Disorder, depressed phase Found her attila moderate distress. She is complaining of severe reflux and constipation issues. Her mood is anxious and depressed. Staying to herself. Going to some groups.. MSE : Alert, awake, interactive. Poor eye contact. Speech few words. Mood dysphoric and anxious. Denies any auditory and visual hallucinations. Has no suicidal ideation. Insight and judgment improving. Plan : Will start Miralax for constipation and continue to adjust medications accordingly Objective - Vital Signs Vital signs: Vital Signs Temp 98.2 F 09/22/18 06:16 Pulse 85 09/22/18 07:29 Resp 18 09/22/18 06:16 BP 116/78 09/22/18 07:29 Pulse Ox 95 09/20/18 09:09 - Labs CBC & Chem 7: 09/18/18 14:05 09/18/18 14:05
[2018-09-22] MEDS: ASPIRIN 81 MG PO SCH (21:19)
[2018-09-22] MEDS: FAMOTIDINE 20 MG TAB PO SCH (21:19)
[2018-09-22] MEDS: ATORVASTATIN 10 MG TAB PO SCH (21:20)
[2018-09-22] MEDS: VITAMIN E (DL,TOCOPHERYL ACET) 400 UNIT CAP PO SCH (21:21)
[2018-09-22] MEDS: risperiDONE 0.25 MG TAB PO SCH (21:21)
[2018-09-22] MEDS: VENLAFAXINE HCL ER 150 MG CAP PO SCH (21:24)
[2018-09-22] MEDS: traZODone HCL 50 MG TAB PO SCH (21:25)
--- NOTE | 2018-09-22 23:39 | CT ---
EXAM: CT Head Without Intravenous Contrast CLINICAL HISTORY: ITS.REASON CT Reason: Fall TECHNIQUE: Axial computed tomography images of the head/brain without intravenous contrast. CTDI is 60.3 mGy and DLP is 966 mGy-cm. This CT exam was performed using one or more of the following dose reduction techniques: automated exposure control, adjustment of the mA and/or kV according to patient size, and/or use of iterative reconstruction technique. COMPARISON: No relevant prior studies available. FINDINGS: Brain: No hemorrhage. No edema. Ventricles: Unremarkable. No ventriculomegaly. Bones/joints: No acute fracture. Soft tissues: Unremarkable. Sinuses: No fluid levels. Mastoid air cells: Unremarkable as visualized. No mastoid effusion. IMPRESSION: No acute intracranial findings
[2018-09-23] MEDS: LEVOTHYROXINE 88 MCG TAB PO SCH (06:37)
[2018-09-23] MEDS: CYANOCOBALAMIN 500 MCG TAB PO SCH (08:37)
[2018-09-23] MEDS: PRAMIPEXOLE 0.5 MG TAB PO SCH ×3 (08:37→21:22)
[2018-09-23] MEDS: DOCUSATE 100 MG CAP PO SCH (08:38)
[2018-09-23] MEDS: lamoTRIgine 100 MG TAB PO SCH ×2 (08:38→21:22)
[2018-09-23] MEDS: SULFAMETHOX-TMP 800-160MG 1 EACH TAB PO SCH (08:38)
[2018-09-23] MEDS: OXYBUTYNIN CHLORIDE 5 MG TAB PO SCH ×2 (08:38→21:23)
[2018-09-23] MEDS: CHOLECALCIFEROL 1,000 UNIT TAB PO SCH (08:38)
[2018-09-23] MEDS: LORazepam 1 MG TAB PO PRN ×2 (08:39→21:31)
[2018-09-23] MEDS: ATENOLOL 25 MG TAB PO SCH (08:42)
[2018-09-23] MEDS: POLYETHYLENE GLYCOL 3350 17 GM POWD.PACK PO SCH (08:42)
[2018-09-23] MEDS: amLODIPine 5 MG TAB PO SCH (08:42)
[2018-09-23] MEDS ORDERED: WITCH HAZEL 1 EACH MED..PAD TOPICAL PRN (12:02)
[2018-09-23] MEDS ORDERED: BISACODYL 5 MG TABLET.DR PO STA (12:02)
--- NOTE | 2018-09-23 12:46 | P.PN ---
Subjective Progress Note Date: 09/23/18 Principal diagnosis: Bipolar Disorder, depressed phase Found her attila moderate distress. She is complaining of severe reflux and constipation issues. Yesterday she did not have a bowel movement. Her mood is anxious and depressed. Staying to herself. Going to some groups.. MSE : Alert, awake, interactive. Poor eye contact. Speech few words. Mood dysphoric and anxious. Denies any auditory and visual hallucinations. Has no suicidal ideation. Insight and judgment improving. Plan : Will start Dulcolax PRN for constipation and continue to adjust medications accordingly Objective - Vital Signs Vital signs: Vital Signs Temp 98.3 F 09/23/18 06:46 Pulse 95 09/23/18 08:46 Resp 20 09/23/18 08:46 BP 105/57 09/23/18 08:46 Pulse Ox 93 L 09/23/18 06:46 - Labs CBC & Chem 7: 09/18/18 14:05 09/18/18 14:05
[2018-09-23] MEDS: VITAMIN E (DL,TOCOPHERYL ACET) 400 UNIT CAP PO SCH (21:22)
[2018-09-23] MEDS: FAMOTIDINE 20 MG TAB PO SCH (21:23)
[2018-09-23] MEDS: ATORVASTATIN 10 MG TAB PO SCH (21:23)
[2018-09-23] MEDS: traZODone HCL 50 MG TAB PO SCH (21:23)
[2018-09-23] MEDS: VENLAFAXINE HCL ER 150 MG CAP PO SCH (21:23)
[2018-09-23] MEDS: risperiDONE 0.25 MG TAB PO SCH (21:23)
[2018-09-23] MEDS: ASPIRIN 81 MG PO SCH (21:23)
[2018-09-24] MEDS: LEVOTHYROXINE 88 MCG TAB PO SCH (06:37)
[2018-09-24] MEDS: lamoTRIgine 100 MG TAB PO SCH ×2 (08:03→21:02)
[2018-09-24] MEDS: SULFAMETHOX-TMP 800-160MG 1 EACH TAB PO SCH (08:03)
[2018-09-24] MEDS: DOCUSATE 100 MG CAP PO SCH ×2 (08:03→08:06)
[2018-09-24] MEDS: ATENOLOL 25 MG TAB PO SCH (08:03)
[2018-09-24] MEDS: OXYBUTYNIN CHLORIDE 5 MG TAB PO SCH ×2 (08:03→21:02)
[2018-09-24] MEDS: amLODIPine 5 MG TAB PO SCH (08:03)
[2018-09-24] MEDS: POLYETHYLENE GLYCOL 3350 17 GM POWD.PACK PO SCH (08:03)
[2018-09-24] MEDS: PRAMIPEXOLE 0.5 MG TAB PO SCH (08:10)
--- NOTE | 2018-09-24 12:42 | P.PN ---
Subjective Progress Note Date: 09/24/18 Principal diagnosis: bipolar affective disorder with depression and suicidal ideation and plan pt states that she came to ER because she was having a "mental breakdown." pt reports, "I just couldn't handle everything this week." pt is very tearful while speaking and frequently states that she is a "problem" and "burden" to everyone. pt reports that her brother completed suicide about 2 months ago and she's having difficulty coping Had better night but still depressed and very anxious with shaking 09/21/2018: Patient states that she had a wonderful night's sleep, her shaking is decreased by 50%, anxious and worried and frightful regarding events of the other night. Less suicidal thoughts today and more encouraged. 09/24/2018: Patient stating today that she is getting worse and depression and her anxiety is increased. She is also concerned that she has not had a bowel movement for 5 days. She has occasional thoughts of suicidal ideation but feels more encouraged. Objective - Vital Signs Vital signs: Vital Signs Temp 98.7 F 09/24/18 06:13 Pulse 101 H 09/24/18 08:12 Resp 16 09/24/18 06:13 BP 106/69 09/24/18 08:12 Pulse Ox 93 L 09/24/18 06:13 Intake & Output 09/23/18 09/24/18 09/24/18 18:59 06:59 18:59 Weight 72.2 kg - Labs CBC & Chem 7: 09/18/18 14:05 09/18/18 14:05 Assessment and Plan Assessment: 73-year-old female presenting today for chief complaint depression and suicidal thoughts and plan. Patient states she struggled depression since 1999, she states she has had previous ECT therapy, she states the last time was in the year 1999. She states she is on multiple medications for depression. She states she has been compliant with these medications. Patient states she recently lost her brother from suicide, and is fighting with her daughter which has caused increased depression. Patient denies any abuse at home, homicidal ideations. Patient states she does have a plan for suicide, she states that she was in her car with a closed garage and allowed the exhaust to kill her. Patient states she plan to do this tomorrow as her would be out of town. Patient denies ingesting any acetaminophen or salicylates states. She denies any self-harm. Patient states she does have on-and-off chest pain, she states this has been chronic ongoing for years and she has been evaluated by cardiology regularly. She denies any current chest pain, dyspnea, dyspnea on exertion. Remaining ROS (-), patient denies any recent fever, chills, back pain , abdominal pain, nausea or vomiting, numbness or tingling, dysuria or hematuria , constipation or diarrhea, headaches or visual changes, or any other complaints. Mental Status Examination - General Appearance: [ casual, appears older than stated age Speech/Language: [ slow soft,] Attitude/Behavior: [ guarded, irritable, withdrawn, indifferent Mood: [ Increased /10, anxious /10, irritable, fearful, hopelessness Affect: [ flat, incongruent, labile, blunted constricted] Orientation: [time, person, place situation] Thought Content: [wnl Risk Factors: [she remains less suicidal (ideation, plan), not Homicidal ( ideations, plan)] Perception: [wnl, denies hallucinations (auditory)especially when she doesn't sleep, grandmother Thought Processes: [ concrete Concentration/Attention Span: [ impaired] [Per observation and interview with the patient] Recent Memory: [ impaired] [1 out of 3 in 3 minutes] Remote Memory: [ impaired] [past events, as related history] Intelligence: [ average] [based on history, based on vocabulary, syntax, grammar , and content] Judgement: [good] [per patient's behavior/history of present illness] Insight: [good [understanding severity of illness/history of present illness] Admitting Diagnosis: [bipolar affective disorder with depression and suicidal ideation and plan] Initial Plan of Care: [patient's formal voluntary and came the hospital because of his no other hospital near her primary psychiatrist and [place]. She is treated with him for at least the last 10 years and she has been on Cymbalta for the last 2 years without result. She will be placed on 15 minute checks and usual protocol for this psychiatric unit 3 [facility]. She'll be evaluated by medicine, psychiatry, nursing staff , social work and occupational therapy. She will be expected to go to groups why she was here in the hospital and adhere to medical treatment plan. She will be discontinued on her on Cymbalta and transition to Effexor 37.5 mg to a titrated dose of 300 mg XR. Her Lamictal will be titrated to 200 mg twice a day with a Lamictal blood level obtained. Evaluation of her thyroid including T3-T4 since her TSH is not suppressed will be further evaluated. 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 Mirapex is also useful for restless leg and sleep disorders. She will be increased on her trazodone to 150 mg by mouth daily at bedtime. She also be placed on risperidone 0.25 mg by mouth daily at bedtime for the hallucinations that she experiences when she cannot sleep at nighttime.] (1) Bipolar 1 disorder, depressed Current Visit: Yes Status: Acute Priority: High Code(s): F31.9 - BIPOLAR DISORDER, UNSPECIFIED SNOMED Code(s): 05443909 (2) Suicidal thoughts Current Visit: Yes Status: Acute Priority: High Code(s): R45.851 - SUICIDAL IDEATIONS SNOMED Code(s): 7546745 Plan: follow and observe current treatment. Groups and [facility] increase mirapex to 0.25 mg tid; increase effexor 75 mg XR; increase risperdal 0.25 mg po qhs 09/21/2018: Chart reviewed patient evaluated maintain safety on unit 15 minute checks and will obtain patient this morning. Patient has had less tremors and thus will increase her Mirapex to 0.5 mg 3 times a day, increase her Effexor 150 mg XR by mouth daily at bedtime and she will remain on Lamictal 200 mg twice a day. She has been going to groups and active in the [facility] environment. 09/24/2018: Chart reviewed, patient interviewed, was teamed this morning for progress prognosis. She still is depressed will increase her Effexor to 225 mg XR by mouth daily at bedtime, increase Mirapex to 1 mg 3 times a day. Will add lactulose 10 mg 4 times a day for constipation. Will maintain safety checks and encourage patient to go to groups and integrated in [facility]. Time with Patient: Less than 30
[2018-09-24] MEDS: CYANOCOBALAMIN 500 MCG TAB PO SCH (13:09)
[2018-09-24] MEDS: CHOLECALCIFEROL 1,000 UNIT TAB PO SCH (13:09)
[2018-09-24] MEDS: LACTULOSE 20 GM/30 ML CUP PO SCH ×3 (13:10→21:00)
[2018-09-24] MEDS: PRAMIPEXOLE 1 MG TAB PO SCH ×2 (15:24→21:02)
[2018-09-24] MEDS: LORazepam 1 MG TAB PO PRN (16:34)
--- NOTE | 2018-09-24 19:00 | XR ---
EXAMINATION TYPE: XR knee limited LT DATE OF EXAM: 09/24/2018 COMPARISON: NONE HISTORY: 73-year-old female with pain after fall TECHNIQUE: 2 views FINDINGS: Images show left total knee arthroplasty. Both distal femoral and proximal tibial components of the p rosthesis appear well seated. No periprosthetic fracture. Extensor mechanism appears intact. May be a small joint effusion. IMPRESSION: Small knee joint effusion. Otherwise, uncomplicated left total knee arthroplasty.
[2018-09-24] MEDS: VENLAFAXINE HCL ER 75 MG CAP PO SCH (21:01)
[2018-09-24] MEDS: ASPIRIN 81 MG PO SCH (21:01)
[2018-09-24] MEDS: VITAMIN E (DL,TOCOPHERYL ACET) 400 UNIT CAP PO SCH (21:01)
[2018-09-24] MEDS: risperiDONE 0.25 MG TAB PO SCH (21:01)
[2018-09-24] MEDS: ATORVASTATIN 10 MG TAB PO SCH (21:01)
[2018-09-24] MEDS: FAMOTIDINE 20 MG TAB PO SCH (21:01)
[2018-09-24] MEDS: traZODone HCL 50 MG TAB PO SCH (21:02)
[2018-09-25] MEDS: LEVOTHYROXINE 88 MCG TAB PO SCH (06:40)
[2018-09-25] MEDS: LACTULOSE 20 GM/30 ML CUP PO SCH ×4 (09:00→21:23)
[2018-09-25] MEDS: POLYETHYLENE GLYCOL 3350 17 GM POWD.PACK PO SCH (09:01)
[2018-09-25] MEDS: SULFAMETHOX-TMP 800-160MG 1 EACH TAB PO SCH (09:01)
[2018-09-25] MEDS: lamoTRIgine 100 MG TAB PO SCH ×2 (09:02→22:07)
[2018-09-25] MEDS: OXYBUTYNIN CHLORIDE 5 MG TAB PO SCH ×2 (09:02→21:35)
[2018-09-25] MEDS: ATENOLOL 25 MG TAB PO SCH (09:02)
[2018-09-25] MEDS: amLODIPine 5 MG TAB PO SCH (09:02)
[2018-09-25] MEDS: PRAMIPEXOLE 1 MG TAB PO SCH ×3 (09:02→22:12)
[2018-09-25] MEDS: DOCUSATE 100 MG CAP PO SCH (09:16)
[2018-09-25] MEDS: LORazepam 1 MG TAB PO PRN (09:16)
[2018-09-25] MEDS: SENNOSIDES-DOCUSATE SODIUM 1 EACH TAB PO SCH ×2 (11:12→21:22)
[2018-09-25] MEDS: CHOLECALCIFEROL 1,000 UNIT TAB PO SCH (11:14)
[2018-09-25] MEDS: CYANOCOBALAMIN 500 MCG TAB PO SCH (11:15)
--- NOTE | 2018-09-25 12:29 | XR ---
EXAMINATION TYPE: XR knee limited LT DATE OF EXAM: 09/25/2018 CLINICAL HISTORY: Fall with subsequent left knee pain TECHNIQUE: 2 views of the left knee are obtained. COMPARISON: None. FINDINGS: Total left knee arthroplasty is again seen without surrounding lucency. No dislocation of t he knee. No acute bone fracture. Soft tissues are unremarkable. IMPRESSION: There is no acute fracture or dislocation in the left knee [place] bone nor arthroplasty.
--- NOTE | 2018-09-25 12:59 | XR ---
EXAMINATION TYPE: XR abdomen 1V DATE OF EXAM: 09/25/2018 12:17 PM CLINICAL HISTORY: Constipation for 5 days TECHNIQUE: Single supine KUB image of the abdomen is obtained. COMPARISON: 10/12/2013 FINDINGS: Scattered gas is seen in non-distended small bowel loops. Gas and fecal material is seen in non-distended colon. Surgical clips are noted within the right upper quadrant and right lower quadra nt. Moderate degenerative changes of the lumbosacral junction are again noted. Osseous structures are grossly intact. No dilated large or small bowel. IMPRESSION: Mild amount of retained of transverse colonic and left hemicolonic stool and gaseous dist ention of the nondilated right hemicolon. Nonobstructive bowel gas pattern.
--- NOTE | 2018-09-25 14:32 | P.PN ---
Subjective Progress Note Date: 09/25/18 Principal diagnosis: bipolar affective disorder with depression and suicidal ideation and plan pt states that she came to ER because she was having a "mental breakdown." pt reports, "I just couldn't handle everything this week." pt is very tearful while speaking and frequently states that she is a "problem" and "burden" to everyone. pt reports that her brother completed suicide about 2 months ago and she's having difficulty coping Had better night but still depressed and very anxious with shaking 09/21/2018: Patient states that she had a wonderful night's sleep, her shaking is decreased by 50%, anxious and worried and frightful regarding events of the other night. Less suicidal thoughts today and more encouraged. 09/24/2018: Patient stating today that she is getting worse and depression and her anxiety is increased. She is also concerned that she has not had a bowel movement for 5 days. She has occasional thoughts of suicidal ideation but feels more encouraged. 09/25/2018: Patient had another episode of dizziness and difficulty swallowing. She was evaluated by occupational therapy for swallow and felt she was okay some question of follow-up with her GI doctor when she is discharged from the psychiatric. She had a flat plate of the abdomen Objective - Vital Signs Vital signs: Vital Signs Temp 98.7 F 09/25/18 06:59 Pulse 82 09/25/18 06:59 Resp 16 09/25/18 06:59 BP 123/75 09/25/18 06:59 Pulse Ox 92 L 09/25/18 06:59 - Labs CBC & Chem 7: 09/18/18 14:05 09/18/18 14:05 Assessment and Plan Assessment: 73-year-old female presenting today for chief complaint depression and suicidal thoughts and plan. Patient states she struggled depression since 1999, she states she has had previous ECT therapy, she states the last time was in the year 1999. She states she is on multiple medications for depression. She states she has been compliant with these medications. Patient states she recently lost her brother from suicide, and is fighting with her daughter which has caused increased depression. Patient denies any abuse at home, homicidal ideations. Patient states she does have a plan for suicide, she states that she was in her car with a closed garage and allowed the exhaust to kill her. Patient states she plan to do this tomorrow as her would be out of town. Patient denies ingesting any acetaminophen or salicylates states. She denies any self-harm. Patient states she does have on-and-off chest pain, she states this has been chronic ongoing for years and she has been evaluated by cardiology regularly. She denies any current chest pain, dyspnea, dyspnea on exertion. Remaining ROS (-), patient denies any recent fever, chills, back pain , abdominal pain, nausea or vomiting, numbness or tingling, dysuria or hematuria , constipation or diarrhea, headaches or visual changes, or any other complaints. Mental Status Examination - General Appearance: [ casual, appears older than stated age Speech/Language: [ slow soft,] Attitude/Behavior: [ guarded, irritable, withdrawn, indifferent Mood: [ Increased 7/10, anxious 6/10, irritable, fearful, hopelessness Affect: [ flat, incongruent, labile, blunted constricted] Orientation: [time, person, place situation] Thought Content: [wnl Risk Factors: [she remains less suicidal (ideation, plan), not Homicidal ( ideations, plan)] Perception: [wnl, denies hallucinations (auditory)especially when she doesn't sleep, grandmother Thought Processes: [ concrete Concentration/Attention Span: [ impaired] [Per observation and interview with the patient] Recent Memory: [ impaired] [1 out of 3 in 3 minutes] Remote Memory: [ impaired] [past events, as related history] Intelligence: [ average] [based on history, based on vocabulary, syntax, grammar , and content] Judgement: [good] [per patient's behavior/history of present illness] Insight: [good [understanding severity of illness/history of present illness] Admitting Diagnosis: [bipolar affective disorder with depression and suicidal ideation and plan] Initial Plan of Care: [patient's formal voluntary and came the hospital because of his no other hospital near her primary psychiatrist and [place]. She is treated with him for at least the last 10 years and she has been on Cymbalta for the last 2 years without result. She will be placed on 15 minute checks and usual protocol for this psychiatric unit 3 [facility]. She'll be evaluated by medicine, psychiatry, nursing staff , social work and occupational therapy. She will be expected to go to groups why she was here in the hospital and adhere to medical treatment plan. She will be discontinued on her on Cymbalta and transition to Effexor 37.5 mg to a titrated dose of 300 mg XR. Her Lamictal will be titrated to 200 mg twice a day with a Lamictal blood level obtained. Evaluation of her thyroid including T3-T4 since her TSH is not suppressed will be further evaluated. 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 Mirapex is also useful for restless leg and sleep disorders. She will be increased on her trazodone to 150 mg by mouth daily at bedtime. She also be placed on risperidone 0.25 mg by mouth daily at bedtime for the hallucinations that she experiences when she cannot sleep at nighttime.] (1) Bipolar 1 disorder, depressed Current Visit: Yes Status: Acute Priority: High Code(s): F31.9 - BIPOLAR DISORDER, UNSPECIFIED SNOMED Code(s): 28300088 (2) Suicidal thoughts Current Visit: Yes Status: Acute Priority: High Code(s): R45.851 - SUICIDAL IDEATIONS SNOMED Code(s): 0426680 Plan: follow and observe current treatment. Groups and [facility] increase mirapex to 0.25 mg tid; increase effexor 75 mg XR; increase risperdal 0.25 mg po qhs 09/21/2018: Chart reviewed patient evaluated maintain safety on unit 15 minute checks and will obtain patient this morning. Patient has had less tremors and thus will increase her Mirapex to 0.5 mg 3 times a day, increase her Effexor 150 mg XR by mouth daily at bedtime and she will remain on Lamictal 200 mg twice a day. She has been going to groups and active in the [facility] environment. 09/24/2018: Chart reviewed, patient interviewed, was teamed this morning for progress prognosis. She still is depressed will increase her Effexor to 225 mg XR by mouth daily at bedtime, increase Mirapex to 1 mg 3 times a day. Will add lactulose 10 mg 4 times a day for constipation. Will maintain safety checks and encourage patient to go to groups and integrated in [facility]. 09/25/2018: Chart reviewed and discussed in team, discussed with nursing staff and results of flat plate abdomen reveals no bowel obstruction. Numerous spots of gaseous interspersed with fecal material. She has episodes of dizziness and of recent a nosebleed. She has reduction in her tremors but maybe side effects from the Effexor and the Mirapex. She needs continued dehydrated we'll monitor every 15 minutes for safety checks and any episodes of suicidal nature. She appears to be withdrawn and thought that her medication was discontinued and reassured her that she was taking her Effexor and Lamictal and Mirapex along with trazodone and Risperdal. We'll follow observe for safety and maintain observation of her side effect profile and discussed the benefits and risks profile of medications. Time with Patient: Less than 30
[2018-09-25] MEDS: ASPIRIN 81 MG PO SCH (21:26)
[2018-09-25] MEDS: FAMOTIDINE 20 MG TAB PO SCH (21:27)
[2018-09-25] MEDS: ATORVASTATIN 10 MG TAB PO SCH (21:27)
[2018-09-25] MEDS: VENLAFAXINE HCL ER 75 MG CAP PO SCH (21:30)
[2018-09-25] MEDS: VITAMIN E (DL,TOCOPHERYL ACET) 400 UNIT CAP PO SCH (21:34)
[2018-09-25] MEDS: risperiDONE 0.25 MG TAB PO SCH (22:08)
[2018-09-25] MEDS: traZODone HCL 50 MG TAB PO SCH (22:09)
[2018-09-26] MEDS: LEVOTHYROXINE 88 MCG TAB PO SCH (06:16)
[2018-09-26] MEDS: OXYBUTYNIN CHLORIDE 5 MG TAB PO SCH ×2 (08:37→20:07)
[2018-09-26] MEDS: SULFAMETHOX-TMP 800-160MG 1 EACH TAB PO SCH (08:37)
[2018-09-26] MEDS: SENNOSIDES-DOCUSATE SODIUM 1 EACH TAB PO SCH ×2 (08:37→20:05)
[2018-09-26] MEDS: DOCUSATE 100 MG CAP PO SCH (08:37)
[2018-09-26] MEDS: PRAMIPEXOLE 1 MG TAB PO SCH ×3 (08:37→20:07)
[2018-09-26] MEDS: lamoTRIgine 100 MG TAB PO SCH ×2 (08:37→20:07)
[2018-09-26] MEDS: CHOLECALCIFEROL 1,000 UNIT TAB PO SCH (08:37)
[2018-09-26] MEDS: amLODIPine 5 MG TAB PO SCH (08:38)
[2018-09-26] MEDS: ATENOLOL 25 MG TAB PO SCH (08:38)
[2018-09-26] MEDS: CYANOCOBALAMIN 500 MCG TAB PO SCH (08:38)
[2018-09-26] MEDS: LORazepam 1 MG TAB PO PRN ×2 (08:42→20:11)
[2018-09-26] MEDS: LACTULOSE 20 GM/30 ML CUP PO SCH ×4 (08:43→20:12)
[2018-09-26] MEDS: POLYETHYLENE GLYCOL 3350 17 GM POWD.PACK PO SCH (08:43)
--- NOTE | 2018-09-26 13:18 | P.PN ---
Subjective Progress Note Date: 09/26/18 Principal diagnosis: bipolar affective disorder with depression and suicidal ideation and plan pt states that she came to ER because she was having a "mental breakdown." pt reports, "I just couldn't handle everything this week." pt is very tearful while speaking and frequently states that she is a "problem" and "burden" to everyone. pt reports that her brother completed suicide about 2 months ago and she's having difficulty coping Had better night but still depressed and very anxious with shaking 09/21/2018: Patient states that she had a wonderful night's sleep, her shaking is decreased by 50%, anxious and worried and frightful regarding events of the other night. Less suicidal thoughts today and more encouraged. 09/24/2018: Patient stating today that she is getting worse and depression and her anxiety is increased. She is also concerned that she has not had a bowel movement for 5 days. She has occasional thoughts of suicidal ideation but feels more encouraged. 09/25/2018: Patient had another episode of dizziness and difficulty swallowing. She was evaluated by occupational therapy for swallow and felt she was okay some question of follow-up with her GI doctor when she is discharged from the psychiatric. She had a flat plate of the abdomen 09/26/2018: Patient has had no episode of dizziness but remains difficult eating meals. Chart reviewed including x-rays of the knee and abdomen and discussed these in detail with the patient today. She talked about going home and not having the support from her . She remains depressed anxious and has thoughts of suicide. She was able to have a bowel movement and feels some relief from that. She is able to participate in groups today. Objective - Vital Signs Vital signs: Vital Signs Temp 98.3 F 09/26/18 07:00 Pulse 83 09/26/18 09:11 Resp 18 09/26/18 09:11 BP 138/76 09/26/18 09:11 Pulse Ox 95 09/26/18 07:00 - Labs CBC & Chem 7: 09/18/18 14:05 09/18/18 14:05 Assessment and Plan Assessment: 73-year-old female presenting today for chief complaint depression and suicidal thoughts and plan. Patient states she struggled depression since 1999, she states she has had previous ECT therapy, she states the last time was in the year 1999. She states she is on multiple medications for depression. She states she has been compliant with these medications. Patient states she recently lost her brother from suicide, and is fighting with her daughter which has caused increased depression. Patient denies any abuse at home, homicidal ideations. Patient states she does have a plan for suicide, she states that she was in her car with a closed garage and allowed the exhaust to kill her. Patient states she plan to do this tomorrow as her would be out of town. Patient denies ingesting any acetaminophen or salicylates states. She denies any self-harm. Patient states she does have on-and-off chest pain, she states this has been chronic ongoing for years and she has been evaluated by cardiology regularly. She denies any current chest pain, dyspnea, dyspnea on exertion. Remaining ROS (-), patient denies any recent fever, chills, back pain , abdominal pain, nausea or vomiting, numbness or tingling, dysuria or hematuria , constipation or diarrhea, headaches or visual changes, or any other complaints. Mental Status Examination - General Appearance: [ casual, appears older than stated age Speech/Language: [ slow soft,] Attitude/Behavior: [ guarded, irritable, withdrawn, indifferent Mood: [ Increased 7/10, anxious 6/10, irritable, fearful, hopelessness Affect: [ flat, incongruent, labile, blunted constricted] Orientation: [time, person, place situation] Thought Content: [wnl Risk Factors: [she remains less suicidal (ideation, plan), not Homicidal ( ideations, plan)] Perception: [wnl, denies hallucinations (auditory)especially when she doesn't sleep, grandmother Thought Processes: [ concrete Concentration/Attention Span: [ impaired] [Per observation and interview with the patient] Recent Memory: [ impaired] [1 out of 3 in 3 minutes] Remote Memory: [ impaired] [past events, as related history] Intelligence: [ average] [based on history, based on vocabulary, syntax, grammar , and content] Judgement: [good] [per patient's behavior/history of present illness] Insight: [good [understanding severity of illness/history of present illness] Admitting Diagnosis: [bipolar affective disorder with depression and suicidal ideation and plan] Initial Plan of Care: [patient's formal voluntary and came the hospital because of his no other hospital near her primary psychiatrist and [place]. She is treated with him for at least the last 10 years and she has been on Cymbalta for the last 2 years without result. She will be placed on 15 minute checks and usual protocol for this psychiatric unit 3 [facility]. She'll be evaluated by medicine, psychiatry, nursing staff , social work and occupational therapy. She will be expected to go to groups why she was here in the hospital and adhere to medical treatment plan. She will be discontinued on her on Cymbalta and transition to Effexor 37.5 mg to a titrated dose of 300 mg XR. Her Lamictal will be titrated to 200 mg twice a day with a Lamictal blood level obtained. Evaluation of her thyroid including T3-T4 since her TSH is not suppressed will be further evaluated. 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 Mirapex is also useful for restless leg and sleep disorders. She will be increased on her trazodone to 150 mg by mouth daily at bedtime. She also be placed on risperidone 0.25 mg by mouth daily at bedtime for the hallucinations that she experiences when she cannot sleep at nighttime.] (1) Bipolar 1 disorder, depressed Current Visit: Yes Status: Acute Priority: High Code(s): F31.9 - BIPOLAR DISORDER, UNSPECIFIED SNOMED Code(s): 86589946 (2) Suicidal thoughts Current Visit: Yes Status: Acute Priority: High Code(s): R45.851 - SUICIDAL IDEATIONS SNOMED Code(s): 1124216 Plan: follow and observe current treatment. Groups and [facility] increase mirapex to 0.25 mg tid; increase effexor 75 mg XR; increase risperdal 0.25 mg po qhs 09/21/2018: Chart reviewed patient evaluated maintain safety on unit 15 minute checks and will obtain patient this morning. Patient has had less tremors and thus will increase her Mirapex to 0.5 mg 3 times a day, increase her Effexor 150 mg XR by mouth daily at bedtime and she will remain on Lamictal 200 mg twice a day. She has been going to groups and active in the [facility] environment. 09/24/2018: Chart reviewed, patient interviewed, was teamed this morning for progress prognosis. She still is depressed will increase her Effexor to 225 mg XR by mouth daily at bedtime, increase Mirapex to 1 mg 3 times a day. Will add lactulose 10 mg 4 times a day for constipation. Will maintain safety checks and encourage patient to go to groups and integrated in [facility]. 09/25/2018: Chart reviewed and discussed in team, discussed with nursing staff and results of flat plate abdomen reveals no bowel obstruction. Numerous spots of gaseous interspersed with fecal material. She has episodes of dizziness and of recent a nosebleed. She has reduction in her tremors but maybe side effects from the Effexor and the Mirapex. She needs continued dehydrated we'll monitor every 15 minutes for safety checks and any episodes of suicidal nature. She appears to be withdrawn and thought that her medication was discontinued and reassured her that she was taking her Effexor and Lamictal and Mirapex along with trazodone and Risperdal. We'll follow observe for safety and maintain observation of her side effect profile and discussed the benefits and risks profile of medications. 09/26/2018: Again chart reviewed, discussed in team, discussed with nursing staff, social work regarding progress and prognosis and possible discharge. We will continue to monitor every 15 minutes for safety checks and usual protocol for [address] [id number]. Awaiting lab work to discuss with her what needs to be done next. Did discuss with her in detail the x-rays today. Lamictal came back 8 and may need an increase but will wait to see what the venlafaxine princess- venlafaxine blood levels are Time with Patient: Less than 30
[2018-09-26] MEDS: ASPIRIN 81 MG PO SCH (20:05)
[2018-09-26] MEDS: risperiDONE 0.25 MG TAB PO SCH (20:05)
[2018-09-26] MEDS: VENLAFAXINE HCL ER 75 MG CAP PO SCH (20:06)
[2018-09-26] MEDS: ATORVASTATIN 10 MG TAB PO SCH (20:06)
[2018-09-26] MEDS: traZODone HCL 50 MG TAB PO SCH (20:07)
[2018-09-26] MEDS: FAMOTIDINE 20 MG TAB PO SCH (20:07)
[2018-09-26] MEDS: VITAMIN E (DL,TOCOPHERYL ACET) 400 UNIT CAP PO SCH (20:07)
[2018-09-27] MEDS: LEVOTHYROXINE 88 MCG TAB PO SCH (06:13)
[2018-09-27] MEDS: PRAMIPEXOLE 1 MG TAB PO SCH ×3 (08:51→20:45)
[2018-09-27] MEDS: lamoTRIgine 100 MG TAB PO SCH ×2 (08:51→20:43)
[2018-09-27] MEDS: ATENOLOL 25 MG TAB PO SCH (08:51)
[2018-09-27] MEDS: SENNOSIDES-DOCUSATE SODIUM 1 EACH TAB PO SCH ×2 (08:51→20:44)
[2018-09-27] MEDS: SULFAMETHOX-TMP 800-160MG 1 EACH TAB PO SCH (08:51)
[2018-09-27] MEDS: amLODIPine 5 MG TAB PO SCH (08:51)
[2018-09-27] MEDS: DOCUSATE 100 MG CAP PO SCH (08:51)
[2018-09-27] MEDS: OXYBUTYNIN CHLORIDE 5 MG TAB PO SCH ×2 (08:51→20:43)
[2018-09-27] MEDS: POLYETHYLENE GLYCOL 3350 17 GM POWD.PACK PO SCH (08:52)
[2018-09-27] MEDS: LACTULOSE 20 GM/30 ML CUP PO SCH ×4 (08:52→20:45)
[2018-09-27] MEDS: LORazepam 1 MG TAB PO PRN ×2 (08:53→20:47)
[2018-09-27] MEDS: CYANOCOBALAMIN 500 MCG TAB PO SCH (11:04)
[2018-09-27] MEDS: CHOLECALCIFEROL 1,000 UNIT TAB PO SCH (11:04)
--- NOTE | 2018-09-27 11:41 | P.PN ---
Subjective Progress Note Date: 09/27/18 Principal diagnosis: bipolar affective disorder with depression and suicidal ideation and plan pt states that she came to ER because she was having a "mental breakdown." pt reports, "I just couldn't handle everything this week." pt is very tearful while speaking and frequently states that she is a "problem" and "burden" to everyone. pt reports that her brother completed suicide about 2 months ago and she's having difficulty coping Had better night but still depressed and very anxious with shaking 09/21/2018: Patient states that she had a wonderful night's sleep, her shaking is decreased by 50%, anxious and worried and frightful regarding events of the other night. Less suicidal thoughts today and more encouraged. 09/24/2018: Patient stating today that she is getting worse and depression and her anxiety is increased. She is also concerned that she has not had a bowel movement for 5 days. She has occasional thoughts of suicidal ideation but feels more encouraged. 09/25/2018: Patient had another episode of dizziness and difficulty swallowing. She was evaluated by occupational therapy for swallow and felt she was okay some question of follow-up with her GI doctor when she is discharged from the psychiatric. She had a flat plate of the abdomen 09/26/2018: Patient has had no episode of dizziness but remains difficult eating meals. Chart reviewed including x-rays of the knee and abdomen and discussed these in detail with the patient today. She talked about going home and not having the support from her . She remains depressed anxious and has thoughts of suicide. She was able to have a bowel movement and feels some relief from that. She is able to participate in groups today. 09/27/2018: Chart reviewed, reviewed CT of brain, discussed with nursing staff and in team meeting this morning. Patient was interviewed and discussed the plan for her PT evaluation for independence at home and at family meeting on Monday. Patient states that she still feels a little anxious and depressed but not suicidal but her depression has not cleared way she would like it to be. She also states that she is particularly is concerned about returning home without having a family meeting with her . According to her his expectation is that she continue cooking taking the garbage out etc. which she' s not able to do according to her self. Objective - Vital Signs Vital signs: Vital Signs Temp 98.5 F 09/27/18 06:48 Pulse 95 09/27/18 06:48 Resp 16 09/27/18 06:48 BP 114/78 09/27/18 06:48 Pulse Ox 95 09/27/18 06:48 - Labs CBC & Chem 7: 09/18/18 14:05 09/18/18 14:05 Assessment and Plan Assessment: 73-year-old female presenting today for chief complaint depression and suicidal thoughts and plan. Patient states she struggled depression since 1999, she states she has had previous ECT therapy, she states the last time was in the year 1999. She states she is on multiple medications for depression. She states she has been compliant with these medications. Patient states she recently lost her brother from suicide, and is fighting with her daughter which has caused increased depression. Patient denies any abuse at home, homicidal ideations. Patient states she does have a plan for suicide, she states that she was in her car with a closed garage and allowed the exhaust to kill her. Patient states she plan to do this tomorrow as her would be out of town. Patient denies ingesting any acetaminophen or salicylates states. She denies any self-harm. Patient states she does have on-and-off chest pain, she states this has been chronic ongoing for years and she has been evaluated by cardiology regularly. She denies any current chest pain, dyspnea, dyspnea on exertion. Remaining ROS (-), patient denies any recent fever, chills, back pain , abdominal pain, nausea or vomiting, numbness or tingling, dysuria or hematuria , constipation or diarrhea, headaches or visual changes, or any other complaints. Mental Status Examination - General Appearance: [ casual, appears older than stated age Speech/Language: [ slow soft,] Attitude/Behavior: [ guarded, irritable, withdrawn, indifferent Mood: [ Increased 7/10, anxious 6/10, irritable, fearful, hopelessness Affect: [ flat, incongruent, labile, blunted constricted] Orientation: [time, person, place situation] Thought Content: [wnl Risk Factors: [she remains less suicidal (ideation, plan), not Homicidal ( ideations, plan)] Perception: [wnl, denies hallucinations (auditory)especially when she doesn't sleep, grandmother Thought Processes: [ concrete Concentration/Attention Span: [ impaired] [Per observation and interview with the patient] Recent Memory: [ impaired] [1 out of 3 in 3 minutes] Remote Memory: [ impaired] [past events, as related history] Intelligence: [ average] [based on history, based on vocabulary, syntax, grammar , and content] Judgement: [good] [per patient's behavior/history of present illness] Insight: [good [understanding severity of illness/history of present illness] Admitting Diagnosis: [bipolar affective disorder with depression and suicidal ideation and plan] Initial Plan of Care: [patient's formal voluntary and came the hospital because of his no other hospital near her primary psychiatrist and [place]. She is treated with him for at least the last 10 years and she has been on Cymbalta for the last 2 years without result. She will be placed on 15 minute checks and usual protocol for this psychiatric unit [facility]. She'll be evaluated by medicine, psychiatry, nursing staff , social work and occupational therapy. She will be expected to go to groups why she was here in the hospital and adhere to medical treatment plan. She will be discontinued on her on Cymbalta and transition to Effexor 37.5 mg to a titrated dose of 300 mg XR. Her Lamictal will be titrated to 200 mg twice a day with a Lamictal blood level obtained. Evaluation of her thyroid including T3-T4 since her TSH is not suppressed will be further evaluated. 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 Mirapex is also useful for restless leg and sleep disorders. She will be increased on her trazodone to 150 mg by mouth daily at bedtime. She also be placed on risperidone 0.25 mg by mouth daily at bedtime for the hallucinations that she experiences when she cannot sleep at nighttime.] (1) Bipolar 1 disorder, depressed Current Visit: Yes Status: Acute Priority: High Code(s): F31.9 - BIPOLAR DISORDER, UNSPECIFIED SNOMED Code(s): 84380385 (2) Suicidal thoughts Current Visit: Yes Status: Acute Priority: High Code(s): R45.851 - SUICIDAL IDEATIONS SNOMED Code(s): 6891794 Plan: follow and observe current treatment. Groups and [facility] increase mirapex to 0.25 mg tid; increase effexor 75 mg XR; increase risperdal 0.25 mg po qhs 09/21/2018: Chart reviewed patient evaluated maintain safety on unit 15 minute checks and will obtain patient this morning. Patient has had less tremors and thus will increase her Mirapex to 0.5 mg 3 times a day, increase her Effexor 150 mg XR by mouth daily at bedtime and she will remain on Lamictal 200 mg twice a day. She has been going to groups and active in the [facility] environment. 09/24/2018: Chart reviewed, patient interviewed, was teamed this morning for progress prognosis. She still is depressed will increase her Effexor to 225 mg XR by mouth daily at bedtime, increase Mirapex to 1 mg 3 times a day. Will add lactulose 10 mg 4 times a day for constipation. Will maintain safety checks and encourage patient to go to groups and integrated in [facility]. 09/25/2018: Chart reviewed and discussed in team, discussed with nursing staff and results of flat plate abdomen reveals no bowel obstruction. Numerous spots of gaseous interspersed with fecal material. She has episodes of dizziness and of recent a nosebleed. She has reduction in her tremors but maybe side effects from the Effexor and the Mirapex. She needs continued dehydrated we'll monitor every 15 minutes for safety checks and any episodes of suicidal nature. She appears to be withdrawn and thought that her medication was discontinued and reassured her that she was taking her Effexor and Lamictal and Mirapex along with trazodone and Risperdal. We'll follow observe for safety and maintain observation of her side effect profile and discussed the benefits and risks profile of medications. 09/26/2018: Again chart reviewed, discussed in team, discussed with nursing staff, social work regarding progress and prognosis and possible discharge. We will continue to monitor every 15 minutes for safety checks and usual protocol for [address] [place] [address]. Awaiting lab work to discuss with her what needs to be done next. Did discuss with her in detail the x-rays today. Lamictal came back at 8 and may need an increase but will wait to see what the venlafaxine princess- venlafaxine blood levels are. 09/27/2018: Plans for physical therapy to evaluate independence at home, waiting blood levels on venlafaxine, reviewed CT of brain and will add Sinemet 10/ 100 for her tremor. Continue to have earned 15 minute checks for safety and will evaluate the effectiveness of Mirapex and Sinemet on her tremors. We' ll also reevaluate her depression as Sinemet sometimes can cause depression. Since she is already clinically depressed and has bipolar make sure she will develop a manic episode or a severe worsening depression. Discussed family meeting and the need for physical therapy evaluate independence at home and discussed with her she is not able to be independent and she [facility] to [facility] the next that may be an option. Time with Patient: Greater than 30
[2018-09-27] MEDS: CARBIDOPA-LEVODOPA 10-100 MG 1 EACH TAB PO SCH ×2 (16:07→20:46)
[2018-09-27] MEDS: MAG HYDROX/AL HYDROX/SIMETH 30 ML CUP PO PRN (18:43)
[2018-09-27] MEDS: ASPIRIN 81 MG PO SCH (20:42)
[2018-09-27] MEDS: ATORVASTATIN 10 MG TAB PO SCH (20:42)
[2018-09-27] MEDS: FAMOTIDINE 20 MG TAB PO SCH (20:43)
[2018-09-27] MEDS: risperiDONE 0.25 MG TAB PO SCH (20:43)
[2018-09-27] MEDS: VENLAFAXINE HCL ER 75 MG CAP PO SCH (20:44)
[2018-09-27] MEDS: VITAMIN E (DL,TOCOPHERYL ACET) 400 UNIT CAP PO SCH (20:44)
[2018-09-27] MEDS: traZODone HCL 50 MG TAB PO SCH (20:44)
[2018-09-28] MEDS: LEVOTHYROXINE 88 MCG TAB PO SCH (06:22)
[2018-09-28] MEDS: PRAMIPEXOLE 1 MG TAB PO SCH (07:43)
[2018-09-28] MEDS: SENNOSIDES-DOCUSATE SODIUM 1 EACH TAB PO SCH ×2 (07:43→20:20)
[2018-09-28] MEDS: lamoTRIgine 100 MG TAB PO SCH ×2 (07:43→20:22)
[2018-09-28] MEDS: POLYETHYLENE GLYCOL 3350 17 GM POWD.PACK PO SCH (07:43)
[2018-09-28] MEDS: LACTULOSE 20 GM/30 ML CUP PO SCH ×4 (07:43→20:20)
[2018-09-28] MEDS: OXYBUTYNIN CHLORIDE 5 MG TAB PO SCH ×2 (07:44→20:22)
[2018-09-28] MEDS: DOCUSATE 100 MG CAP PO SCH (07:44)
[2018-09-28] MEDS: amLODIPine 5 MG TAB PO SCH (07:44)
[2018-09-28] MEDS: CARBIDOPA-LEVODOPA 10-100 MG 1 EACH TAB PO SCH (07:44)
[2018-09-28] MEDS: ATENOLOL 25 MG TAB PO SCH (07:45)
[2018-09-28] MEDS: LORazepam 1 MG TAB PO PRN (10:02)
[2018-09-28] MEDS: CHOLECALCIFEROL 1,000 UNIT TAB PO SCH (11:41)
[2018-09-28] MEDS: CYANOCOBALAMIN 500 MCG TAB PO SCH (11:41)
--- NOTE | 2018-09-28 12:46 | P.PN ---
Subjective Progress Note Date: 09/28/18 Principal diagnosis: bipolar affective disorder with depression and suicidal ideation and plan pt states that she came to ER because she was having a "mental breakdown." pt reports, "I just couldn't handle everything this week." pt is very tearful while speaking and frequently states that she is a "problem" and "burden" to everyone. pt reports that her brother completed suicide about 2 months ago and she's having difficulty coping Had better night but still depressed and very anxious with shaking 09/21/2018: Patient states that she had a wonderful night's sleep, her shaking is decreased by 50%, anxious and worried and frightful regarding events of the other night. Less suicidal thoughts today and more encouraged. 09/24/2018: Patient stating today that she is getting worse and depression and her anxiety is increased. She is also concerned that she has not had a bowel movement for 5 days. She has occasional thoughts of suicidal ideation but feels more encouraged. 09/25/2018: Patient had another episode of dizziness and difficulty swallowing. She was evaluated by occupational therapy for swallow and felt she was okay some question of follow-up with her GI doctor when she is discharged from the psychiatric. She had a flat plate of the abdomen 09/26/2018: Patient has had no episode of dizziness but remains difficult eating meals. Chart reviewed including x-rays of the knee and abdomen and discussed these in detail with the patient today. She talked about going home and not having the support from her . She remains depressed anxious and has thoughts of suicide. She was able to have a bowel movement and feels some relief from that. She is able to participate in groups today. 09/27/2018: Chart reviewed, reviewed CT of brain, discussed with nursing staff and in team meeting this morning. Patient was interviewed and discussed the plan for her PT evaluation for independence at home and at family meeting on Monday. Patient states that she still feels a little anxious and depressed but not suicidal but her depression has not cleared way she would like it to be. She also states that she is particularly is concerned about returning home without having a family meeting with her . According to her his expectation is that she continue cooking taking the garbage out etc. which she' s not able to do according to her self. 09/28/2018: Chart reviewed, discussed with nursing staff the psychotic moment she had this morning and interview the patient my office after she ambulated only with wheelchair to my office. She had a brief psychotic episode which may be related to the Sinemet which I stopped this morning. Since she still complains of depression will increase her Effexor to 300 mgXR and increase her Lamictal to 200 mg twice a day. She still has a fair amount of shaking thus will use Mirapex 1.5 mg 3 times a day. Family meeting is planned for Monday, . We'll also obtain a CBC since she's had an nosebleed after blowing her nose hard will check to make sure her platelets are within normal. Objective - Vital Signs Vital signs: Vital Signs Temp 98.2 F 09/28/18 06:52 Pulse 88 09/28/18 06:52 Resp 16 09/28/18 06:52 BP 98/60 09/28/18 08:00 Pulse Ox 94 L 09/28/18 06:52 - Labs CBC & Chem 7: 09/18/18 14:05 09/18/18 14:05 Assessment and Plan Assessment: 73-year-old female presenting today for chief complaint depression and suicidal thoughts and plan. Patient states she struggled depression since 1999, she states she has had previous ECT therapy, she states the last time was in the year 1999. She states she is on multiple medications for depression. She states she has been compliant with these medications. Patient states she recently lost her brother from suicide, and is fighting with her daughter which has caused increased depression. Patient denies any abuse at home, homicidal ideations. Patient states she does have a plan for suicide, she states that she was in her car with a closed garage and allowed the exhaust to kill her. Patient states she plan to do this tomorrow as her would be out of town. Patient denies ingesting any acetaminophen or salicylates states. She denies any self-harm. Patient states she does have on-and-off chest pain, she states this has been chronic ongoing for years and she has been evaluated by cardiology regularly. She denies any current chest pain, dyspnea, dyspnea on exertion. Remaining ROS (-), patient denies any recent fever, chills, back pain , abdominal pain, nausea or vomiting, numbness or tingling, dysuria or hematuria , constipation or diarrhea, headaches or visual changes, or any other complaints. Mental Status Examination - General Appearance: [ casual, appears older than stated age Speech/Language: [ slow soft,] Attitude/Behavior: [ guarded, irritable, withdrawn, indifferent Mood: [ Increased 7/10, anxious 6/10, irritable, fearful, hopelessness Affect: [ flat, incongruent, labile, blunted constricted] Orientation: [time, person, place situation] Thought Content: [wnl Risk Factors: [she remains less suicidal (ideation, plan), not Homicidal ( ideations, plan)] Perception: [wnl, denies hallucinations (auditory)especially when she doesn't sleep, grandmother Thought Processes: [ concrete Concentration/Attention Span: [ impaired] [Per observation and interview with the patient] Recent Memory: [ impaired] [1 out of 3 in 3 minutes] Remote Memory: [ impaired] [past events, as related history] Intelligence: [ average] [based on history, based on vocabulary, syntax, grammar , and content] Judgement: [good] [per patient's behavior/history of present illness] Insight: [good [understanding severity of illness/history of present illness] Admitting Diagnosis: [bipolar affective disorder with depression and suicidal ideation and plan] Initial Plan of Care: [patient's formal voluntary and came the hospital because of his no other hospital near her primary psychiatrist and [place]. She is treated with him for at least the last 10 years and she has been on Cymbalta for the last 2 years without result. She will be placed on 15 minute checks and usual protocol for this psychiatric unit 3 [facility]. She'll be evaluated by medicine, psychiatry, nursing staff , social work and occupational therapy. She will be expected to go to groups why she was here in the hospital and adhere to medical treatment plan. She will be discontinued on her on Cymbalta and transition to Effexor 37.5 mg to a titrated dose of 300 mg XR. Her Lamictal will be titrated to 200 mg twice a day with a Lamictal blood level obtained. Evaluation of her thyroid including T3-T4 since her TSH is not suppressed will be further evaluated. 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 Mirapex is also useful for restless leg and sleep disorders. She will be increased on her trazodone to 150 mg by mouth daily at bedtime. She also be placed on risperidone 0.25 mg by mouth daily at bedtime for the hallucinations that she experiences when she cannot sleep at nighttime.] (1) Bipolar 1 disorder, depressed Current Visit: Yes Status: Acute Priority: High Code(s): F31.9 - BIPOLAR DISORDER, UNSPECIFIED SNOMED Code(s): 36573224 (2) Suicidal thoughts Current Visit: Yes Status: Acute Priority: High Code(s): R45.851 - SUICIDAL IDEATIONS SNOMED Code(s): 3792054 Plan: follow and observe current treatment. Groups and [facility] increase mirapex to 0.25 mg tid; increase effexor 75 mg XR; increase risperdal 0.25 mg po qhs 09/21/2018: Chart reviewed patient evaluated maintain safety on unit 15 minute checks and will obtain patient this morning. Patient has had less tremors and thus will increase her Mirapex to 0.5 mg 3 times a day, increase her Effexor 150 mg XR by mouth daily at bedtime and she will remain on Lamictal 200 mg twice a day. She has been going to groups and active in the [facility] environment. 09/24/2018: Chart reviewed, patient interviewed, was teamed this morning for progress prognosis. She still is depressed will increase her Effexor to 225 mg XR by mouth daily at bedtime, increase Mirapex to 1 mg 3 times a day. Will add lactulose 10 mg 4 times a day for constipation. Will maintain safety checks and encourage patient to go to groups and integrated in [facility]. 09/25/2018: Chart reviewed and discussed in team, discussed with nursing staff and results of flat plate abdomen reveals no bowel obstruction. Numerous spots of gaseous interspersed with fecal material. She has episodes of dizziness and of recent a nosebleed. She has reduction in her tremors but maybe side effects from the Effexor and the Mirapex. She needs continued dehydrated we'll monitor every 15 minutes for safety checks and any episodes of suicidal nature. She appears to be withdrawn and thought that her medication was discontinued and reassured her that she was taking her Effexor and Lamictal and Mirapex along with trazodone and Risperdal. We'll follow observe for safety and maintain observation of her side effect profile and discussed the benefits and risks profile of medications. 09/26/2018: Again chart reviewed, discussed in team, discussed with nursing staff, social work regarding progress and prognosis and possible discharge. We will continue to monitor every 15 minutes for safety checks and usual protocol for [address] [place] [address]. Awaiting lab work to discuss with her what needs to be done next. Did discuss with her in detail the x-rays today. Lamictal came back at 8 and may need an increase but will wait to see what the venlafaxine princess- venlafaxine blood levels are. 09/27/2018: Plans for physical therapy to evaluate independence at home, waiting blood levels on venlafaxine, reviewed CT of brain and will add Sinemet 10/ 100 for her tremor. Continue to have earned 15 minute checks for safety and will evaluate the effectiveness of Mirapex and Sinemet on her tremors. We' ll also reevaluate her depression as Sinemet sometimes can cause depression. Since she is already clinically depressed and has bipolar make sure she will develop a manic episode or a severe worsening depression. Discussed family meeting and the need for physical therapy evaluate independence at home and discussed with her she is not able to be independent and she recommends a [facility] facility to transfer to the next that may be an option. 09/28/2018: Chart reviewed, discussed with nursing staff the psychotic moment she had this morning and interview the patient my office after she ambulated only with wheelchair to my office. She had a brief psychotic episode which may be related to the Sinemet which I stopped this morning. Since she still complains of depression will increase her Effexor to 300 mgXR and increase her Lamictal to 200 mg twice a day. She still has a fair amount of shaking thus will use Mirapex 1.5 mg 3 times a day. Family meeting is planned for Monday, . We'll also obtain a CBC since she's had an nosebleed after blowing her nose hard will check to make sure her platelets are within normal. Time with Patient: Greater than 30
[2018-09-28] MEDS: PRAMIPEXOLE 0.5 MG TAB PO SCH ×2 (15:44→20:57)
[2018-09-28] MEDS: FAMOTIDINE 20 MG TAB PO SCH (20:21)
[2018-09-28] MEDS: ASPIRIN 81 MG PO SCH (20:21)
[2018-09-28] MEDS: ATORVASTATIN 10 MG TAB PO SCH (20:21)
[2018-09-28] MEDS: risperiDONE 0.25 MG TAB PO SCH (20:23)
[2018-09-28] MEDS: traZODone HCL 50 MG TAB PO SCH (20:23)
[2018-09-28] MEDS: VENLAFAXINE HCL ER 150 MG CAP PO SCH (20:24)
[2018-09-28] MEDS: VITAMIN E (DL,TOCOPHERYL ACET) 400 UNIT CAP PO SCH (20:24)
[2018-09-29] MEDS: LORazepam 1 MG TAB PO PRN ×2 (02:00→09:00)
[2018-09-29] MEDS: LEVOTHYROXINE 88 MCG TAB PO SCH (06:04)
[2018-09-29 08:16] LABS: Basophils # (A) 0.1 k/uL (0-0.2); Basophils % (A) 1 %; Eosinophils # (A) 0.3 k/uL (0-0.7); Eosinophils % (A) 4 %; HCT 42.2 % (34.0-46.0); HGB 13.3 gm/dL (11.4-16.0); Lymphocytes # (A) 1.8 k/uL (1.0-4.8); Lymphocytes % (A) 25 %; MCH 30.3 pg (25.0-35.0); MCHC 31.6 g/dL (31.0-37.0); MCV 95.9 fL (80.0-100.0); Mean Platelet Volume 6.7; Monocytes # (A) 0.4 k/uL (0-1.0); Monocytes % (A) 6 %; Neutrophils # (A) 4.4 k/uL (1.3-7.7); Neutrophils % (A) 62 %; Platelet Count 234 k/uL (150-450); RDW 13.6 % (11.5-15.5); WBC 7.2 k/uL (3.8-10.6)
[2018-09-29] MEDS: ATENOLOL 25 MG TAB PO SCH (08:56)
[2018-09-29] MEDS: DOCUSATE 100 MG CAP PO SCH (08:56)
[2018-09-29] MEDS: LACTULOSE 20 GM/30 ML CUP PO SCH ×4 (08:56→21:06)
[2018-09-29] MEDS: amLODIPine 5 MG TAB PO SCH (08:56)
[2018-09-29] MEDS: lamoTRIgine 100 MG TAB PO SCH ×2 (08:57→21:02)
[2018-09-29] MEDS: PRAMIPEXOLE 0.5 MG TAB PO SCH ×3 (08:58→21:10)
[2018-09-29] MEDS: POLYETHYLENE GLYCOL 3350 17 GM POWD.PACK PO SCH (08:58)
[2018-09-29] MEDS: OXYBUTYNIN CHLORIDE 5 MG TAB PO SCH ×2 (08:58→21:06)
[2018-09-29] MEDS: SENNOSIDES-DOCUSATE SODIUM 1 EACH TAB PO SCH ×2 (08:58→21:06)
[2018-09-29] MEDS: risperiDONE 0.25 MG TAB PO SCH (08:58)
--- NOTE | 2018-09-29 12:09 | P.PN ---
Subjective Progress Note Date: 09/29/18 Principal diagnosis: bipolar affective disorder with depression and suicidal ideation and plan pt states that she came to ER because she was having a "mental breakdown." pt reports, "I just couldn't handle everything this week." pt is very tearful while speaking and frequently states that she is a "problem" and "burden" to everyone. pt reports that her brother completed suicide about 2 months ago and she's having difficulty coping Had better night but still depressed and very anxious with shaking 09/21/2018: Patient states that she had a wonderful night's sleep, her shaking is decreased by 50%, anxious and worried and frightful regarding events of the other night. Less suicidal thoughts today and more encouraged. 09/24/2018: Patient stating today that she is getting worse and depression and her anxiety is increased. She is also concerned that she has not had a bowel movement for 5 days. She has occasional thoughts of suicidal ideation but feels more encouraged. 09/25/2018: Patient had another episode of dizziness and difficulty swallowing. She was evaluated by occupational therapy for swallow and felt she was okay some question of follow-up with her GI doctor when she is discharged from the psychiatric. She had a flat plate of the abdomen 09/26/2018: Patient has had no episode of dizziness but remains difficult eating meals. Chart reviewed including x-rays of the knee and abdomen and discussed these in detail with the patient today. She talked about going home and not having the support from her . She remains depressed anxious and has thoughts of suicide. She was able to have a bowel movement and feels some relief from that. She is able to participate in groups today. 09/27/2018: Chart reviewed, reviewed CT of brain, discussed with nursing staff and in team meeting this morning. Patient was interviewed and discussed the plan for her PT evaluation for independence at home and at family meeting on Monday. Patient states that she still feels a little anxious and depressed but not suicidal but her depression has not cleared way she would like it to be. She also states that she is particularly is concerned about returning home without having a family meeting with her . According to her his expectation is that she continue cooking taking the garbage out etc. which she' s not able to do according to her self. 09/28/2018: Chart reviewed, discussed with nursing staff the psychotic moment she had this morning and interview the patient my office after she ambulated only with wheelchair to my office. She had a brief psychotic episode which may be related to the Sinemet which I stopped this morning. Since she still complains of depression will increase her Effexor to 300 mgXR and increase her Lamictal to 200 mg twice a day. She still has a fair amount of shaking thus will use Mirapex 1.5 mg 3 times a day. Family meeting is planned for Monday, . We'll also obtain a CBC since she's had an nosebleed after blowing her nose hard will check to make sure her platelets are within normal 09/29/2018: Chart reviewed discussed in detail with nursing staff and she had another psychotic episode where she saw somebody around 4:00 in the morning walking and out of her room. Will increase her Resporal to 1 mg by mouth daily at bedtime. Her shaking he has has decreased in nature. Objective - Vital Signs Vital signs: Vital Signs Temp 98.1 F 09/29/18 06:44 Pulse 95 09/29/18 06:44 Resp 16 09/29/18 06:44 BP 140/88 09/29/18 06:44 Pulse Ox 94 L 09/28/18 06:52 - Labs CBC & Chem 7: 09/29/18 07:48 09/18/18 14:05 Assessment and Plan Assessment: 73-year-old female presenting today for chief complaint depression and suicidal thoughts and plan. Patient states she struggled depression since 1999, she states she has had previous ECT therapy, she states the last time was in the year 1999. She states she is on multiple medications for depression. She states she has been compliant with these medications. Patient states she recently lost her brother from suicide, and is fighting with her daughter which has caused increased depression. Patient denies any abuse at home, homicidal ideations. Patient states she does have a plan for suicide, she states that she was in her car with a closed garage and allowed the exhaust to kill her. Patient states she plan to do this tomorrow as her would be out of town. Patient denies ingesting any acetaminophen or salicylates states. She denies any self-harm. Patient states she does have on-and-off chest pain, she states this has been chronic ongoing for years and she has been evaluated by cardiology regularly. She denies any current chest pain, dyspnea, dyspnea on exertion. Remaining ROS (-), patient denies any recent fever, chills, back pain , abdominal pain, nausea or vomiting, numbness or tingling, dysuria or hematuria , constipation or diarrhea, headaches or visual changes, or any other complaints. Mental Status Examination - General Appearance: [ casual, appears older than stated age Speech/Language: [ slow soft,] Attitude/Behavior: [ guarded, irritable, withdrawn, indifferent Mood: [ Increased 7/10, anxious 6/10, irritable, fearful, hopelessness Affect: [ flat, incongruent, labile, blunted constricted] Orientation: [time, person, place situation] Thought Content: [wnl Risk Factors: [she remains less suicidal (ideation, plan), not Homicidal ( ideations, plan)] Perception: [wnl, denies hallucinations (auditory)especially when she doesn't sleep, grandmother Thought Processes: [ concrete Concentration/Attention Span: [ impaired] [Per observation and interview with the patient] Recent Memory: [ impaired] [1 out of 3 in 3 minutes] Remote Memory: [ impaired] [past events, as related history] Intelligence: [ average] [based on history, based on vocabulary, syntax, grammar , and content] Judgement: [good] [per patient's behavior/history of present illness] Insight: [good [understanding severity of illness/history of present illness] Admitting Diagnosis: [bipolar affective disorder with depression and suicidal ideation and plan] Initial Plan of Care: [patient's formal voluntary and came the hospital because of his no other hospital near her primary psychiatrist and [place]. She is treated with him for at least the last 10 years and she has been on Cymbalta for the last 2 years without result. She will be placed on 15 minute checks and usual protocol for this psychiatric unit [facility]. She'll be evaluated by medicine, psychiatry, nursing staff , social work and occupational therapy. She will be expected to go to groups why she was here in the hospital and adhere to medical treatment plan. She will be discontinued on her on Cymbalta and transition to Effexor 37.5 mg to a titrated dose of 300 mg XR. Her Lamictal will be titrated to 200 mg twice a day with a Lamictal blood level obtained. Evaluation of her thyroid including T3-T4 since her TSH is not suppressed will be further evaluated. 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 Mirapex is also useful for restless leg and sleep disorders. She will be increased on her trazodone to 150 mg by mouth daily at bedtime. She also be placed on risperidone 0.25 mg by mouth daily at bedtime for the hallucinations that she experiences when she cannot sleep at nighttime.] (1) Bipolar 1 disorder, depressed Current Visit: Yes Status: Acute Priority: High Code(s): F31.9 - BIPOLAR DISORDER, UNSPECIFIED SNOMED Code(s): 13855173 (2) Suicidal thoughts Current Visit: Yes Status: Acute Priority: High Code(s): R45.851 - SUICIDAL IDEATIONS SNOMED Code(s): 8823804 Plan: follow and observe current treatment. Groups and [facility] increase mirapex to 0.25 mg tid; increase effexor 75 mg XR; increase risperdal 0.25 mg po qhs 09/21/2018: Chart reviewed patient evaluated maintain safety on unit 15 minute checks and will obtain patient this morning. Patient has had less tremors and thus will increase her Mirapex to 0.5 mg 3 times a day, increase her Effexor 150 mg XR by mouth daily at bedtime and she will remain on Lamictal 200 mg twice a day. She has been going to groups and active in the [facility] environment. 09/24/2018: Chart reviewed, patient interviewed, was teamed this morning for progress prognosis. She still is depressed will increase her Effexor to 225 mg XR by mouth daily at bedtime, increase Mirapex to 1 mg 3 times a day. Will add lactulose 10 mg 4 times a day for constipation. Will maintain safety checks and encourage patient to go to groups and integrated in [facility]. 09/25/2018: Chart reviewed and discussed in team, discussed with nursing staff and results of flat plate abdomen reveals no bowel obstruction. Numerous spots of gaseous interspersed with fecal material. She has episodes of dizziness and of recent a nosebleed. She has reduction in her tremors but maybe side effects from the Effexor and the Mirapex. She needs continued dehydrated we'll monitor every 15 minutes for safety checks and any episodes of suicidal nature. She appears to be withdrawn and thought that her medication was discontinued and reassured her that she was taking her Effexor and Lamictal and Mirapex along with trazodone and Risperdal. We'll follow observe for safety and maintain observation of her side effect profile and discussed the benefits and risks profile of medications. 09/26/2018: Again chart reviewed, discussed in team, discussed with nursing staff, social work regarding progress and prognosis and possible discharge. We will continue to monitor every 15 minutes for safety checks and usual protocol for [address] [place] [address]. Awaiting lab work to discuss with her what needs to be done next. Did discuss with her in detail the x-rays today. Lamictal came back at 8 and may need an increase but will wait to see what the venlafaxine princess- venlafaxine blood levels are. 09/27/2018: Plans for physical therapy to evaluate independence at home, waiting blood levels on venlafaxine, reviewed CT of brain and will add Sinemet 10/ 100 for her tremor. Continue to have earned 15 minute checks for safety and will evaluate the effectiveness of Mirapex and Sinemet on her tremors. We' ll also reevaluate her depression as Sinemet sometimes can cause depression. Since she is already clinically depressed and has bipolar make sure she will develop a manic episode or a severe worsening depression. Discussed family meeting and the need for physical therapy evaluate independence at home and discussed with her she is not able to be independent and she recommends a correction facility to transfer to the next that may be an option. 09/28/2018: Chart reviewed, discussed with nursing staff the psychotic moment she had this morning and interview the patient my office after she ambulated only with wheelchair to my office. She had a brief psychotic episode which may be related to the Sinemet which I stopped this morning. Since she still complains of depression will increase her Effexor to 300 mgXR and increase her Lamictal to 200 mg twice a day. She still has a fair amount of shaking thus will use Mirapex 1.5 mg 3 times a day. Family meeting is planned for Monday, . We'll also obtain a CBC since she's had an nosebleed after blowing her nose hard will check to make sure her platelets are within normal. 09/29/2018: Chart reviewed and discussed with nursing staff. Due to psychotic hallucination at 4:00 morning will increase Risperdal to 1 mg by mouth daily at bedtime. CBC was well within normal and platelets were normal. No more nosebleeds noted. Will remain on 15 minute checks and reassured the patient that she is okay now and stated however. She states that happens quite often not home and her just says always okay and he just saw some, so this is a common occurrence for this lady. This may be a hypnagogic hallucination.
[2018-09-29] MEDS: CHOLECALCIFEROL 1,000 UNIT TAB PO SCH (12:54)
[2018-09-29] MEDS: CYANOCOBALAMIN 500 MCG TAB PO SCH (12:54)
[2018-09-29] MEDS: ATORVASTATIN 10 MG TAB PO SCH (21:03)
[2018-09-29] MEDS: traZODone HCL 50 MG TAB PO SCH (21:04)
[2018-09-29] MEDS: risperiDONE 1 MG TAB PO SCH (21:04)
[2018-09-29] MEDS: FAMOTIDINE 20 MG TAB PO SCH (21:06)
[2018-09-29] MEDS: VENLAFAXINE HCL ER 150 MG CAP PO SCH (21:07)
[2018-09-29] MEDS: ASPIRIN 81 MG PO SCH (21:10)
[2018-09-29] MEDS: VITAMIN E (DL,TOCOPHERYL ACET) 400 UNIT CAP PO SCH (21:11)
[2018-09-30] MEDS: LORazepam 1 MG TAB PO PRN ×2 (00:06→21:49)
[2018-09-30] MEDS: LEVOTHYROXINE 88 MCG TAB PO SCH (06:41)
[2018-09-30] MEDS: PRAMIPEXOLE 0.5 MG TAB PO SCH ×3 (07:39→21:39)
[2018-09-30] MEDS: SENNOSIDES-DOCUSATE SODIUM 1 EACH TAB PO SCH ×2 (07:39→21:47)
[2018-09-30] MEDS: amLODIPine 5 MG TAB PO SCH (07:39)
[2018-09-30] MEDS: lamoTRIgine 100 MG TAB PO SCH ×2 (07:39→21:44)
[2018-09-30] MEDS: POLYETHYLENE GLYCOL 3350 17 GM POWD.PACK PO SCH (07:39)
[2018-09-30] MEDS: LACTULOSE 20 GM/30 ML CUP PO SCH ×4 (07:39→21:48)
[2018-09-30] MEDS: ATENOLOL 25 MG TAB PO SCH (07:40)
[2018-09-30] MEDS: DOCUSATE 100 MG CAP PO SCH (07:40)
[2018-09-30] MEDS: OXYBUTYNIN CHLORIDE 5 MG TAB PO SCH (07:40)
--- NOTE | 2018-09-30 12:24 | P.PN ---
Subjective Progress Note Date: 09/30/18 Principal diagnosis: bipolar affective disorder with depression and suicidal ideation and plan pt states that she came to ER because she was having a "mental breakdown." pt reports, "I just couldn't handle everything this week." pt is very tearful while speaking and frequently states that she is a "problem" and "burden" to everyone. pt reports that her brother completed suicide about 2 months ago and she's having difficulty coping Had better night but still depressed and very anxious with shaking 09/21/2018: Patient states that she had a wonderful night's sleep, her shaking is decreased by 50%, anxious and worried and frightful regarding events of the other night. Less suicidal thoughts today and more encouraged. 09/24/2018: Patient stating today that she is getting worse and depression and her anxiety is increased. She is also concerned that she has not had a bowel movement for 5 days. She has occasional thoughts of suicidal ideation but feels more encouraged. 09/25/2018: Patient had another episode of dizziness and difficulty swallowing. She was evaluated by occupational therapy for swallow and felt she was okay some question of follow-up with her GI doctor when she is discharged from the psychiatric. She had a flat plate of the abdomen 09/26/2018: Patient has had no episode of dizziness but remains difficult eating meals. Chart reviewed including x-rays of the knee and abdomen and discussed these in detail with the patient today. She talked about going home and not having the support from her . She remains depressed anxious and has thoughts of suicide. She was able to have a bowel movement and feels some relief from that. She is able to participate in groups today. 09/27/2018: Chart reviewed, reviewed CT of brain, discussed with nursing staff and in team meeting this morning. Patient was interviewed and discussed the plan for her PT evaluation for independence at home and at family meeting on Monday. Patient states that she still feels a little anxious and depressed but not suicidal but her depression has not cleared way she would like it to be. She also states that she is particularly is concerned about returning home without having a family meeting with her . According to her his expectation is that she continue cooking taking the garbage out etc. which she' s not able to do according to her self. 09/28/2018: Chart reviewed, discussed with nursing staff the psychotic moment she had this morning and interview the patient my office after she ambulated only with wheelchair to my office. She had a brief psychotic episode which may be related to the Sinemet which I stopped this morning. Since she still complains of depression will increase her Effexor to 300 mgXR and increase her Lamictal to 200 mg twice a day. She still has a fair amount of shaking thus will use Mirapex 1.5 mg 3 times a day. Family meeting is planned for Monday, . We'll also obtain a CBC since she's had an nosebleed after blowing her nose hard will check to make sure her platelets are within normal 09/29/2018: Chart reviewed discussed in detail with nursing staff and she had another psychotic episode where she saw somebody around 4:00 in the morning walking and out of her room. Will increase her Risperdal to 1 mg by mouth daily at bedtime. Her shaking he has has decreased in nature. 09/30/2018: Chart reviewed, discussed with nursing staff after she had an episode where she felt lightheaded last night and had a bad dream. After reviewing her chart today she was on atenolol and Norvasc with a blood pressure that has been dropping as well as heart rate so is decided to stop the atenolol. Her oxybutynin at nighttime was 10 mg and decrease that to 5 mg because acting cause some confusion and delusions. Objective - Vital Signs Vital signs: Vital Signs Temp 98.2 F 09/30/18 06:36 Pulse 94 09/30/18 07:44 Resp 18 09/30/18 07:44 BP 114/69 09/30/18 07:44 Pulse Ox 94 L 09/28/18 06:52 Intake & Output 09/29/18 09/30/18 09/30/18 18:59 06:59 18:59 Weight 70.2 kg - Labs CBC & Chem 7: 09/29/18 07:48 09/18/18 14:05 Assessment and Plan Assessment: 73-year-old female presenting today for chief complaint depression and suicidal thoughts and plan. Patient states she struggled depression since 1999, she states she has had previous ECT therapy, she states the last time was in the year 1999. She states she is on multiple medications for depression. She states she has been compliant with these medications. Patient states she recently lost her brother from suicide, and is fighting with her daughter which has caused increased depression. Patient denies any abuse at home, homicidal ideations. Patient states she does have a plan for suicide, she states that she was in her car with a closed garage and allowed the exhaust to kill her. Patient states she plan to do this tomorrow as her would be out of town. Patient denies ingesting any acetaminophen or salicylates states. She denies any self-harm. Patient states she does have on-and-off chest pain, she states this has been chronic ongoing for years and she has been evaluated by cardiology regularly. She denies any current chest pain, dyspnea, dyspnea on exertion. Remaining ROS (-), patient denies any recent fever, chills, back pain , abdominal pain, nausea or vomiting, numbness or tingling, dysuria or hematuria , constipation or diarrhea, headaches or visual changes, or any other complaints. Mental Status Examination - General Appearance: [ casual, appears older than stated age Speech/Language: [ slow soft,] Attitude/Behavior: [ guarded, irritable, withdrawn, indifferent Mood: [ Increased 4/10, anxious 5/10, irritable, fearful, hopelessness Affect: [ flat, incongruent, labile, blunted constricted] Orientation: [time, person, place situation] Thought Content: [wnl Risk Factors: [she remains less suicidal (ideation, plan), not Homicidal ( ideations, plan)] Perception: [wnl, denies hallucinations (auditory) nightmare last night which felt real to her Thought Processes: [ concrete Concentration/Attention Span: [ impaired] [Per observation and interview with the patient] Recent Memory: [ impaired] [1 out of 3 in 3 minutes] Remote Memory: [ impaired] [past events, as related history] Intelligence: [ average] [based on history, based on vocabulary, syntax, grammar , and content] Judgement: [good] [per patient's behavior/history of present illness] Insight: [good [understanding severity of illness/history of present illness] Admitting Diagnosis: [bipolar affective disorder with depression and suicidal ideation and plan] Initial Plan of Care: [patient's formal voluntary and came the hospital because of his no other hospital near her primary psychiatrist and [facility]. She is treated with him for at least the last 10 years and she has been on Cymbalta for the last 2 years without result. She will be placed on 15 minute checks and usual protocol for this psychiatric unit [facility]. She'll be evaluated by medicine, psychiatry, nursing staff , social work and occupational therapy. She will be expected to go to groups why she was here in the hospital and adhere to medical treatment plan. She will be discontinued on her on Cymbalta and transition to Effexor 37.5 mg to a titrated dose of 300 mg XR. Her Lamictal will be titrated to 200 mg twice a day with a Lamictal blood level obtained. Evaluation of her thyroid including T3-T4 since her TSH is not suppressed will be further evaluated. 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 Mirapex is also useful for restless leg and sleep disorders. She will be increased on her trazodone to 150 mg by mouth daily at bedtime. She also be placed on risperidone 0.25 mg by mouth daily at bedtime for the hallucinations that she experiences when she cannot sleep at nighttime.] (1) Bipolar 1 disorder, depressed Current Visit: Yes Status: Acute Priority: High Code(s): F31.9 - BIPOLAR DISORDER, UNSPECIFIED SNOMED Code(s): 55700880 (2) Suicidal thoughts Current Visit: Yes Status: Acute Priority: High Code(s): R45.851 - SUICIDAL IDEATIONS SNOMED Code(s): 6336379 Plan: follow and observe current treatment. Groups and [facility] increase mirapex to 0.25 mg tid; increase effexor 75 mg XR; increase risperdal 0.25 mg po qhs 09/21/2018: Chart reviewed patient evaluated maintain safety on unit 15 minute checks and will obtain patient this morning. Patient has had less tremors and thus will increase her Mirapex to 0.5 mg 3 times a day, increase her Effexor 150 mg XR by mouth daily at bedtime and she will remain on Lamictal 200 mg twice a day. She has been going to groups and active in the [facility] environment. 09/24/2018: Chart reviewed, patient interviewed, was teamed this morning for progress prognosis. She still is depressed will increase her Effexor to 225 mg XR by mouth daily at bedtime, increase Mirapex to 1 mg 3 times a day. Will add lactulose 10 mg 4 times a day for constipation. Will maintain safety checks and encourage patient to go to groups and integrated in [facility]. 09/25/2018: Chart reviewed and discussed in team, discussed with nursing staff and results of flat plate abdomen reveals no bowel obstruction. Numerous spots of gaseous interspersed with fecal material. She has episodes of dizziness and of recent a nosebleed. She has reduction in her tremors but maybe side effects from the Effexor and the Mirapex. She needs continued dehydrated we'll monitor every 15 minutes for safety checks and any episodes of suicidal nature. She appears to be withdrawn and thought that her medication was discontinued and reassured her that she was taking her Effexor and Lamictal and Mirapex along with trazodone and Risperdal. We'll follow observe for safety and maintain observation of her side effect profile and discussed the benefits and risks profile of medications. 09/26/2018: Again chart reviewed, discussed in team, discussed with nursing staff, social work regarding progress and prognosis and possible discharge. We will continue to monitor every 15 minutes for safety checks and usual protocol for [address] [place] [id number]. Awaiting lab work to discuss with her what needs to be done next. Did discuss with her in detail the x-rays today. Lamictal came back at 8 and may need an increase but will wait to see what the venlafaxine princess- venlafaxine blood levels are. 09/27/2018: Plans for physical therapy to evaluate independence at home, waiting blood levels on venlafaxine, reviewed CT of brain and will add Sinemet 10/ 100 for her tremor. Continue to have earned 15 minute checks for safety and will evaluate the effectiveness of Mirapex and Sinemet on her tremors. We' ll also reevaluate her depression as Sinemet sometimes can cause depression. Since she is already clinically depressed and has bipolar make sure she will develop a manic episode or a severe worsening depression. Discussed family meeting and the need for physical therapy evaluate independence at home and discussed with her she is not able to be independent and she recommends a custodial facility to transfer to the next that may be an option. 09/28/2018: Chart reviewed, discussed with nursing staff the psychotic moment she had this morning and interview the patient my office after she ambulated only with wheelchair to my office. She had a brief psychotic episode which may be related to the Sinemet which I stopped this morning. Since she still complains of depression will increase her Effexor to 300 mgXR and increase her Lamictal to 200 mg twice a day. She still has a fair amount of shaking thus will use Mirapex 1.5 mg 3 times a day. Family meeting is planned for Monday, . We'll also obtain a CBC since she's had an nosebleed after blowing her nose hard will check to make sure her platelets are within normal. 09/29/2018: Chart reviewed and discussed with nursing staff. Due to psychotic hallucination at 4:00 morning will increase Risperdal to 1 mg by mouth daily at bedtime. CBC was well within normal and platelets were normal. No more nosebleeds noted. Will remain on 15 minute checks and reassured the patient that she is okay now and stated however. She states that happens quite often not home and her just says always okay and he just saw some, so this is a common occurrence for this lady. This may be a hypnagogic hallucination. 09/30/2018: Chart reviewed and discussed with nursing staff regarding her lightheadedness last night and her nightmare. Discussed with nursing staff the change and oxybutynin and the seeing the atenolol. Plan is to have a family meeting for the patient goes home. Time with Patient: Less than 30
[2018-09-30] MEDS: CYANOCOBALAMIN 500 MCG TAB PO SCH (12:37)
[2018-09-30] MEDS: CHOLECALCIFEROL 1,000 UNIT TAB PO SCH (12:37)
[2018-09-30] MEDS ORDERED: OXYBUTYNIN CHLORIDE 5 MG TAB PO SCH (21:00)
[2018-09-30] MEDS: FAMOTIDINE 20 MG TAB PO SCH (21:38)
[2018-09-30] MEDS: ATORVASTATIN 10 MG TAB PO SCH (21:38)
[2018-09-30] MEDS: VITAMIN E (DL,TOCOPHERYL ACET) 400 UNIT CAP PO SCH (21:38)
[2018-09-30] MEDS: traZODone HCL 50 MG TAB PO SCH (21:40)
[2018-09-30] MEDS: VENLAFAXINE HCL ER 150 MG CAP PO SCH (21:44)
[2018-09-30] MEDS: ASPIRIN 81 MG PO SCH (21:45)
[2018-09-30] MEDS: risperiDONE 1 MG TAB PO SCH (21:46)
[2018-10-01 06:47] VITALS: BP 132/71; PULSE 92; RESP 14; TEMP 98.6
[2018-10-01] MEDS: LEVOTHYROXINE 88 MCG TAB PO SCH (07:01)
[2018-10-01] MEDS: amLODIPine 5 MG TAB PO SCH (09:23)
[2018-10-01] MEDS: OXYBUTYNIN CHLORIDE 5 MG TAB PO SCH (09:23)
[2018-10-01] MEDS: lamoTRIgine 100 MG TAB PO SCH (09:23)
[2018-10-01] MEDS: DOCUSATE 100 MG CAP PO SCH (09:23)
[2018-10-01] MEDS: PRAMIPEXOLE 0.5 MG TAB PO SCH (09:24)
[2018-10-01] MEDS: POLYETHYLENE GLYCOL 3350 17 GM POWD.PACK PO SCH (09:25)
[2018-10-01] MEDS: SENNOSIDES-DOCUSATE SODIUM 1 EACH TAB PO SCH (09:26)
[2018-10-01] MEDS: LACTULOSE 20 GM/30 ML CUP PO SCH ×2 (09:26→13:24)
[2018-10-01] MEDS: LORazepam 1 MG TAB PO PRN (09:31)
--- NOTE | 2018-10-01 12:27 | P.DS ---
Providers Date of admission: 09/18/18 15:15 Expected date of discharge: 10/01/18 Attending physician: Sravan Stubbs DO Consults: 09/18/18 15:33 Consult Physician Routine Consulting Provider: Fernando Carlos Consult Reason/Comments: H&P and medical Do you want consulting provider notified?: Yes Primary care physician: Luis Alvarez - Discharge Diagnosis(es) (1) Bipolar 1 disorder, depressed 73-year-old female presenting today for chief complaint depression and suicidal thoughts and plan. Patient states she struggled depression since 1999, she states she has had previous ECT therapy, she states the last time was in the year 1999. She states she is on multiple medications for depression. She states she has been compliant with these medications. Patient states she recently lost her brother from suicide, and is fighting with her daughter which has caused increased depression. Patient denies any abuse at home, homicidal ideations. Patient states she does have a plan for suicide, she states that she was in her car with a closed garage and allowed the exhaust to kill her. Patient states she plan to do this tomorrow as her would be out of town. Patient denies ingesting any acetaminophen or salicylates states. She denies any self-harm. Patient states she does have on-and-off chest pain, she states this has been chronic ongoing for years and she has been evaluated by cardiology regularly. She denies any current chest pain, dyspnea, dyspnea on exertion. Remaining ROS (-), patient denies any recent fever, chills, back pain , abdominal pain, nausea or vomiting, numbness or tingling, dysuria or hematuria , constipation or diarrhea, headaches or visual changes, or any other complaints. pt states that she came to ER because she was having a "mental breakdown." pt reports, "I just couldn't handle everything this week." pt is very tearful while speaking and frequently states that she is a "problem" and "burden" to everyone. pt reports that her brother completed suicide about 2 months ago and she's having difficulty coping with this pt reports that her plan is to wait until goes to work, lock herself in the garage, and turn the car on. pt denies previous suicide attempts, but states , "I thought about it a lot." pt states that she sees dark shapes moving around sometimes, but admits to current visual hallucinations. pt also reports that she occasionally feels as though there is "stuff crawling up my arm." pt reports that she has a lot of anxiety about her daughter and the government that seems to be a fixed delusion. pt states, "Anxiety about things I have no control over." pt ruminates over the anxieties and it sometimes causes problems with her sleep. pt states that she has trouble with her sleeping due to racing thoughts and anxiety. pt reports, "I don't even sleep with my anymore because I'm up and down." pt denies change in appetite, but does report that she had thoracic surgery to "fix where my esophagus got narrow" and that this sometimes causes difficulty swallowing. pt states, "My brothers won't talk to me...my daughter doesn't like me. My brothers live in [place], so I guess it's hard, but they can call me." pt also states, "Only my one daughter and would notice if I was gone." pt began to cry harder when asked about support system and was unable to discuss supports further. - Related Data Home Medications Medication Instructions Recorded Confirmed Aspirin 81 mg PO HS 10/22/15 09/18/18 Docusate [Colace] 100 mg PO QAM 10/22/15 09/18/18 LORazepam [Ativan] 1 mg PO BID PRN 10/22/15 09/18/18 Oxybutynin Chloride [Ditropan] 5 mg PO QAM 10/22/15 09/18/18 Polyethylene Glycol 3350 [Miralax] 17 gm PO DAILY 10/22/15 09/18/18 Ranitidine HCl [Zantac] 150 mg PO HS 10/22/15 09/18/18 Simvastatin [Zocor] 20 mg PO HS 10/22/15 09/18/18 Vitamin E (Dl,Tocopheryl Acet) 400 unit PO HS 10/22/15 09/18/18 [Vitamin E] amLODIPine BESYLATE [Norvasc] 5 mg PO DAILY 10/22/15 09/18/18 lamoTRIgine [Lamotrigine] 100 mg PO QAM 10/22/15 09/18/18 lamoTRIgine [Lamotrigine] 200 mg PO PC-SUPPER 10/22/15 09/18/18 Atenolol [Tenormin] 25 mg PO DAILY 06/13/16 09/18/18 Cholecalciferol [Vitamin D3] 2,000 unit PO DAILY 06/13/16 09/18/18 Cyanocobalamin [Vitamin B-12] 1,000 mcg PO DAILY 06/13/16 09/18/18 DULoxetine HCL [Cymbalta] 60 mg PO BID 06/13/16 09/18/18 Levothyroxine Sodium [Synthroid] 88 mcg PO DAILY 06/13/16 09/18/18 traZODone HCL 100 mg PO HS 06/13/16 09/18/18 Biotin 5 mg PO DAILY 09/18/18 09/18/18 L.acidoph,Paracasei, B.lactis 1 cap PO DAILY 09/18/18 09/18/18 [Probiotic] Oxybutynin Chloride [Ditropan] 10 mg PO HS 09/18/18 09/18/18 Allergies Allergy/AdvReac Type Severity Reaction Status Date / Time aripiprazole [From Abilify] Allergy Nausea & Verified 09/18/18 16:31 Vomiting chlorpromazine HCl Allergy "PASSED Verified 09/18/18 16:31 [From Thorazine] OUT" codeine Allergy SEVERE Verified 09/18/18 16:31 VOMITNG, PASSED OUT Past Medical History Past Medical History: GERD/Reflux, Hyperlipidemia, Hypertension, Osteoarthritis (OA), Thyroid Disorder History of Any Multi-Drug Resistant Organisms: None Reported Past Surgical History: Hysterectomy, Joint Replacement, Tubal Ligation Additional Past Surgical History / Comment(s): CATARACT -BILATERAL , RIGHT SHOULDER, TOTAL LEFT KNEE. Esophageal opening surgery, robotic. Past Anesthesia/Blood Transfusion Reactions: Motion Sickness Smoking Status: Never smoker - Past Family History Mother Family Medical History: Coronary Artery Disease (CAD), CVA/TIA Current Visit: Yes Status: Acute Priority: Low (2) Suicidal thoughts Current Visit: Yes Status: Acute Priority: Low Hospital Course: Plan of Care: [patient's formal voluntary and came the hospital because of his no other hospital near her primary psychiatrist and [place]. She is treated with him for at least the last 10 years and she has been on Cymbalta for the last 2 years without result. She will be placed on 15 minute checks and usual protocol for this psychiatric [facility] She'll be evaluated by medicine, psychiatry, nursing staff, social work and occupational therapy. She will be expected to go to groups why she was here in the hospital and adhere to medical treatment plan. She will be discontinued on her on Cymbalta and transition to Effexor 37.5 mg to a titrated dose of 300 mg XR. Her Lamictal will be titrated to 200 mg twice a day with a Lamictal blood level obtained. Evaluation of her thyroid including T3-T4 since her TSH is not suppressed will be further evaluated. 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 Mirapex is also useful for restless leg and sleep disorders. She will be increased on her trazodone to 150 mg by mouth daily at bedtime. She also be placed on risperidone 0.25 mg by mouth daily at bedtime for the hallucinations that she experiences when she cannot sleep at nighttime.] follow and observe current treatment. Groups and [facility] increase mirapex to 0.25 mg tid; increase effexor 75 mg XR; increase risperdal 0.25 mg po qhs 09/21/2018: Chart reviewed patient evaluated maintain safety on unit 15 minute checks and will obtain patient this morning. Patient has had less tremors and thus will increase her Mirapex to 0.5 mg 3 times a day, increase her Effexor 150 mg XR by mouth daily at bedtime and she will remain on Lamictal 200 mg twice a day. She has been going to groups and active in the [facility] environment. 09/24/2018: Chart reviewed, patient interviewed, was teamed this morning for progress prognosis. She still is depressed will increase her Effexor to 225 mg XR by mouth daily at bedtime, increase Mirapex to 1 mg 3 times a day. Will add lactulose 10 mg 4 times a day for constipation. Will maintain safety checks and encourage patient to go to groups and integrated in [facility]. 09/25/2018: Chart reviewed and discussed in team, discussed with nursing staff and results of flat plate abdomen reveals no bowel obstruction. Numerous spots of gaseous interspersed with fecal material. She has episodes of dizziness and of recent a nosebleed. She has reduction in her tremors but maybe side effects from the Effexor and the Mirapex. She needs continued dehydrated we'll monitor every 15 minutes for safety checks and any episodes of suicidal nature. She appears to be withdrawn and thought that her medication was discontinued and reassured her that she was taking her Effexor and Lamictal and Mirapex along with trazodone and Risperdal. We'll follow observe for safety and maintain observation of her side effect profile and discussed the benefits and risks profile of medications. 09/26/2018: Again chart reviewed, discussed in team, discussed with nursing staff, social work regarding progress and prognosis and possible discharge. We will continue to monitor every 15 minutes for safety checks and usual protocol for [address] [place] [address]. Awaiting lab work to discuss with her what needs to be done next. Did discuss with her in detail the x-rays today. Lamictal came back at 8 and may need an increase but will wait to see what the venlafaxine princess- venlafaxine blood levels are. 09/27/2018: Plans for physical therapy to evaluate independence at home, waiting blood levels on venlafaxine, reviewed CT of brain and will add Sinemet 10/ 100 for her tremor. Continue to have earned 15 minute checks for safety and will evaluate the effectiveness of Mirapex and Sinemet on her tremors. We' ll also reevaluate her depression as Sinemet sometimes can cause depression. Since she is already clinically depressed and has bipolar make sure she will develop a manic episode or a severe worsening depression. Discussed family meeting and the need for physical therapy evaluate independence at home and discussed with her she is not able to be independent and she recommends a shelter facility to transfer to the next that may be an option. 09/28/2018: Chart reviewed, discussed with nursing staff the psychotic moment she had this morning and interview the patient my office after she ambulated only with wheelchair to my office. She had a brief psychotic episode which may be related to the Sinemet which I stopped this morning. Since she still complains of depression will increase her Effexor to 300 mgXR and increase her Lamictal to 200 mg twice a day. She still has a fair amount of shaking thus will use Mirapex 1.5 mg 3 times a day. Family meeting is planned for Monday, . We'll also obtain a CBC since she's had an nosebleed after blowing her nose hard will check to make sure her platelets are within normal. 09/29/2018: Chart reviewed and discussed with nursing staff. Due to psychotic hallucination at 4:00 morning will increase Risperdal to 1 mg by mouth daily at bedtime. CBC was well within normal and platelets were normal. No more nosebleeds noted. Will remain on 15 minute checks and reassured the patient that she is okay now and stated however. She states that happens quite often not home and her just says always okay and he just saw some, so this is a common occurrence for this lady. This may be a hypnagogic hallucination. 09/30/2018: Chart reviewed and discussed with nursing staff regarding her lightheadedness last night and her nightmare. Discussed with nursing staff the change and oxybutynin and the seeing the atenolol. Plan is to have a family meeting for the patient goes home. Mental status examination time of discharge: The patient presents alert, pleasant, and cooperative. There calmly seated without any agitated behavior. She reports that [her] mood is good. Affect is congruent and euthymic. [She] deny having any suicidal or homicidal ideation intent or plan. [She] denies any auditory or visual hallucinations. There is no evidence of any delusional thought content. [Her] thought process is linear and goal-directed. [Her] speech is fluent and nonpressured. [Her] memory and concentration is grossly intact for the purposes of this session. Discharge Medication List Aspirin 81 mg PO HS 10/22/15 [History] Docusate [Colace] 100 mg PO QAM 10/22/15 [History] Simvastatin [Zocor] 20 mg PO HS 10/22/15 [History] Vitamin E (Dl,Tocopheryl Acet) [Vitamin E] 400 unit PO HS 10/22/15 [History] amLODIPine BESYLATE [Norvasc] 5 mg PO DAILY 10/22/15 [History] Cholecalciferol [Vitamin D3] 2,000 unit PO DAILY 06/13/16 [History] Cyanocobalamin [Vitamin B-12] 1,000 mcg PO DAILY 06/13/16 [History] Biotin 5 mg PO DAILY 09/18/18 [History] L.acidoph,Paracasei, B.lactis [Probiotic] 1 cap PO DAILY 09/18/18 [History] Famotidine [Pepcid] 20 mg PO HS 30 Days #30 tab 10/01/18 [Rx] Levothyroxine Sodium [Synthroid] 88 mcg PO DAILY 30 Days #30 tab 10/01/18 [Rx] Oxybutynin Chloride [Ditropan] 5 mg PO PC-BID 30 Days #60 tab 10/01/18 [Rx] Polyethylene Glycol 3350 [Miralax] 17 gm PO DAILY powd.pack 10/01/18 [Rx] Pramipexole [Mirapex] 1.5 mg PO TID 30 Days #90 tab 10/01/18 [Rx] Sennosides-Docusate Sodium [Senokot-S] 2 each PO BID tab 10/01/18 [Rx] Venlafaxine HCl ER [Effexor XR] 300 mg PO 2100 30 Days #60 cap.er.24h 10/01/18 [ Rx] lamoTRIgine [LaMICtal] 200 mg PO BID 30 Days #120 tab 10/01/18 [Rx] risperiDONE [RisperDAL] 1 mg PO HS 30 Days #30 tab 10/01/18 [Rx] traZODone HCL [Desyrel] 150 mg PO HS 30 Days #90 tab 10/01/18 [Rx] Patient Condition at Discharge: Stable Plan - Discharge Summary Discharge Rx Participant: No New Discharge Prescriptions: New Famotidine [Pepcid] 20 mg PO HS 30 Days #30 tab lamoTRIgine [LaMICtal] 200 mg PO BID 30 Days #120 tab Polyethylene Glycol 3350 [Miralax] 17 gm PO DAILY powd.pack Pramipexole [Mirapex] 1.5 mg PO TID 30 Days #90 tab risperiDONE [RisperDAL] 1 mg PO HS 30 Days #30 tab Sennosides-Docusate Sodium [Senokot-S] 2 each PO BID tab traZODone HCL [Desyrel] 150 mg PO HS 30 Days #90 tab Venlafaxine HCl ER [Effexor XR] 300 mg PO 2100 30 Days #60 cap.er.24h Continue Vitamin E (Dl,Tocopheryl Acet) [Vitamin E] 400 unit PO HS Aspirin 81 mg PO HS Simvastatin [Zocor] 20 mg PO HS Docusate [Colace] 100 mg PO QAM amLODIPine BESYLATE [Norvasc] 5 mg PO DAILY Cholecalciferol [Vitamin D3] 2,000 unit PO DAILY Cyanocobalamin [Vitamin B-12] 1,000 mcg PO DAILY Biotin 5 mg PO DAILY L.aciddina,Paracasei, B.lactis [Probiotic] 1 cap PO DAILY Levothyroxine Sodium [Synthroid] 88 mcg PO DAILY 30 Days #30 tab Changed Oxybutynin Chloride [Ditropan] 5 mg PO PC-BID 30 Days #60 tab Discontinued Ranitidine HCl [Zantac] 150 mg PO HS Polyethylene Glycol 3350 [Miralax] 17 gm PO DAILY LORazepam [Ativan] 1 mg PO BID PRN PRN Reason: Anxiety lamoTRIgine [Lamotrigine] 200 mg PO PC-SUPPER lamoTRIgine [Lamotrigine] 100 mg PO QAM DULoxetine HCL [Cymbalta] 60 mg PO BID Atenolol [Tenormin] 25 mg PO DAILY traZODone HCL 100 mg PO HS Oxybutynin Chloride [Ditropan] 10 mg PO HS Discharge Medication List Aspirin 81 mg PO HS 10/22/15 [History] Docusate [Colace] 100 mg PO QAM 10/22/15 [History] Simvastatin [Zocor] 20 mg PO HS 10/22/15 [History] Vitamin E (Dl,Tocopheryl Acet) [Vitamin E] 400 unit PO HS 10/22/15 [History] amLODIPine BESYLATE [Norvasc] 5 mg PO DAILY 10/22/15 [History] Cholecalciferol [Vitamin D3] 2,000 unit PO DAILY 06/13/16 [History] Cyanocobalamin [Vitamin B-12] 1,000 mcg PO DAILY 06/13/16 [History] Biotin 5 mg PO DAILY 09/18/18 [History] L.acidoph,Paracasei, B.lactis [Probiotic] 1 cap PO DAILY 09/18/18 [History] Famotidine [Pepcid] 20 mg PO HS 30 Days #30 tab 10/01/18 [Rx] Levothyroxine Sodium [Synthroid] 88 mcg PO DAILY 30 Days #30 tab 10/01/18 [Rx] Oxybutynin Chloride [Ditropan] 5 mg PO PC-BID 30 Days #60 tab 10/01/18 [Rx] Polyethylene Glycol 3350 [Miralax] 17 gm PO DAILY powd.pack 10/01/18 [Rx] Pramipexole [Mirapex] 1.5 mg PO TID 30 Days #90 tab 10/01/18 [Rx] Sennosides-Docusate Sodium [Senokot-S] 2 each PO BID tab 10/01/18 [Rx] Venlafaxine HCl ER [Effexor XR] 300 mg PO 2100 30 Days #60 cap.er.24h 10/01/18 [ Rx] lamoTRIgine [LaMICtal] 200 mg PO BID 30 Days #120 tab 10/01/18 [Rx] risperiDONE [RisperDAL] 1 mg PO HS 30 Days #30 tab 10/01/18 [Rx] traZODone HCL [Desyrel] 150 mg PO HS 30 Days #90 tab 10/01/18 [Rx] Follow up Appointment(s)/Referral(s): Dr Prem [Other] - 10/03/18 4:45 pm Luis Alvarez DO [Primary Care Provider] - 1 Week Activity/Diet/Wound Care/Special Instructions: Activity and diet as tolerated. Avoid the use of street drugs and alcohol. Take all medications as prescribed. When you are in need of refills on your medications please contact your medical provider and/or outpatient psychiatrist to have this done. Please go to scheduled outpatient appointment for aftercare treatment. If symptoms return or become worse, call the crisis line at [phone] and/or go to the nearest emergency room for evaluation. Physical therapy evaluation done on 09/25/18, recommendations of sub-acute rehab upon discharge. Speech therapy recommending gastroenterology consult for esophageal function. Discharge Disposition: HOME SELF-CARE
[2018-10-01] MEDS: CHOLECALCIFEROL 1,000 UNIT TAB PO SCH (13:22)
[2018-10-01] MEDS: CYANOCOBALAMIN 500 MCG TAB PO SCH (13:22)
== END 2018-10-01 13:27 | disposition home or self-care (01) | DRG 885 ==
LOC: EC 11:56 → 3MHU 15:15
PROVIDERS: ADMIT Psychiatry & Neurology Psychiatry; ATTEND Psychiatry & Neurology Psychiatry
DX: F31.5 Bipolar disorder, current episode depressed, severe, with psychotic features (principal); R45.851 Suicidal ideations; R13.10 Dysphagia, unspecified; F41.9 Anxiety disorder, unspecified; E03.9 Hypothyroidism, unspecified; R04.0 Epistaxis; G25.81 Restless legs syndrome; G47.9 Sleep disorder, unspecified; K59.00 Constipation, unspecified; K21.9 Gastro-esophageal reflux disease without esophagitis; E78.5 Hyperlipidemia, unspecified; R25.1 Tremor, unspecified; I10 Essential (primary) hypertension; F10.20 Alcohol dependence, uncomplicated; M19.90 Unspecified osteoarthritis, unspecified site; Z79.82 Long term (current) use of aspirin; Z79.890 Hormone replacement therapy; Z79.899 Other long term (current) drug therapy; Z90.710 Acquired absence of both cervix and uterus; Z96.652 Presence of left artificial knee joint; Z98.51 Tubal ligation status; Z98.42 Cataract extraction status, left eye; Z98.41 Cataract extraction status, right eye; Z88.5 Allergy status to narcotic agent; Z88.8 Allergy status to other drugs, medicaments and biological substances; Z81.8 Family history of other mental and behavioral disorders; Z82.49 Family history of ischemic heart disease and other diseases of the circulatory system; Z82.3 Family history of stroke
CPT/HCPCS: 36415; 70450; 71046; 74018; 80053; 80061; 80175; 80299; 80306; 81001; 82075; 83036; 84436; 84443; 84480; 84484; 85025; 93005; 99285

== ENCOUNTER → 2018-11-05 | Outpatient (CLI) | payer MEDICARE, BC ==
--- NOTE | 2018-11-05 13:06 | US ---
EXAMINATION TYPE: US carotid duplex BILAT DATE OF EXAM: 11/05/2018 COMPARISON: NONE CLINICAL HISTORY: R55 Syncope. EXAM MEASUREMENTS: RIGHT: Peak Systolic Velocity (PSV) cm/sec ----- Right CCA: 65.9 ----- Right ICA: 60.3 ----- Right ECA: 49.9 ICA/CCA ratio: 0.9 RIGHT: End Diastole cm/sec ----- Right CCA: 26.7 ----- Right ICA: 25.9 ----- Right ECA: 16.0 LEFT: Peak Systolic Velocity (PSV) cm/sec ----- Left CCA: 76.3 ----- Left ICA: 68.7 ----- Left ECA: 59.1 ICA/CCA ratio: 0.9 LEFT: End Diastole cm/sec ----- Left CCA: 29.3 ----- Left ICA: 18.8 ----- Left ECA: 22.5 VERTEBRALS (direction of flow): Right Vertebral: Antegrade Left Vertebral: Antegrade Rhythm: Normal Small deep vessels technically difficult study. No obvious atherosclerotic changes, no significant velocity increases. IMPRESSION: No hemodynamically significant stenosis in either internal carotid artery is seen bilate rally. Criteria for Assigning % of Stenosis / Diameter reduction (Estimation based on the indirect measurements of the internal carotid artery velocities (ICA PSV). 1. Normal (no stenosis)=ICA PSV < 125 cm/s: ratio < 2.0: ICA EDV<40 cm/s. 2. Less than 50% stenosis=ICA PSV < 125 cm/s: ratio < 2.0: ICA EDV<40 cm/s. 3. 50 to 69% stenosis=ICA PSV of 125 to 230 cm/s: ration 2.0 ? 4.0: ICA EDV 40-100 cm/s. 4. Greater than 70% stenosis to near occlusion= ICA PSV > 230 cm/s: ratio > 4.0: ICA EDV > 100 cm/s. 5. Near occlusion= ICA PSV velocities may be low or undetectable: variable ratio and ICA EDV. 6. Total occlusion=unable to detect flow.
== END | disposition home or self-care (01) ==
LOC: RADUSWWP 12:10
PROVIDERS: ATTEND Family Medicine
DX: H81.10 Benign paroxysmal vertigo, unspecified ear (principal); R55 Syncope and collapse
CPT/HCPCS: 93880

== ENCOUNTER → 2018-11-12 | Outpatient (CLI) | payer MEDICARE, BC ==
--- NOTE | 2018-11-12 22:44 | MR ---
EXAMINATION TYPE: MR iac wo/w con DATE OF EXAM: 11/12/2018 COMPARISON: CT brain September 22, 2018 HISTORY: Tinnitus TECHNIQUE: Multiplanar, multisequence images of the brain and brainstem is performed without and with IV contras t, utilizing 7 mL intravenous Gadavist . Acoustic nerve disorder protocol. FINDINGS: Diffusion weighted images demonstrate no evidence of a recent infarct or other diffusion ab normality. There is ventricular and sulcal prominence most prominent over the high bilateral frontal and parietal regions consistent with moderate diffuse cerebral atrophy. Some foci of T2 hyperintensi ty in the deep and periventricular white matter are present. Midline structures demonstrate normal morphology. The craniocervical junction appears within normal limits. Normal vascular flow voids are present. The visualized sinuses are clear and the globes are i ntact. No suspicious fluid signal is seen in the mastoid air cells bilaterally. Vestibulocochlear complexes are symmetric and felt within normal limits. No suspicious enhancing cerebellopontine angle mass is i dentified bilaterally. IMPRESSION: 1. No suspicious finding seen to account for patient's symptoms of tinnitus. 2. Moderate diffuse cerebral atrophy and mild chronic small vessel ischemic changes noted.
== END | disposition home or self-care (01) ==
LOC: RADMRIMAIN 19:42
PROVIDERS: ATTEND Psychiatry & Neurology Neurology
DX: I67.82 Cerebral ischemia (principal); G31.9 Degenerative disease of nervous system, unspecified; H93.19 Tinnitus, unspecified ear; G20 Parkinson's disease
CPT/HCPCS: 82565; 70553; 36415; A9585

== ENCOUNTER 2019-04-19 20:01 | Emergency (ER) | payer MEDICARE, BC ==
[2019-04-19 20:15] VITALS: BP 122/84; PULSE 69; RESP 18; TEMP 98
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
== END 2019-04-19 21:47 | disposition home or self-care (01) ==
LOC: EC 20:01
DX: F41.0 Panic disorder [episodic paroxysmal anxiety] (principal); K21.9 Gastro-esophageal reflux disease without esophagitis; E78.5 Hyperlipidemia, unspecified; F32.9 Major depressive disorder, single episode, unspecified; I10 Essential (primary) hypertension; Z79.82 Long term (current) use of aspirin; Z79.899 Other long term (current) drug therapy; Z88.5 Allergy status to narcotic agent; Z88.8 Allergy status to other drugs, medicaments and biological substances; W18.09XA Striking against other object with subsequent fall, initial encounter
CPT/HCPCS: 99283

== ENCOUNTER → 2019-06-24 | Outpatient (CLI) | payer MEDICARE, BC ==
--- NOTE | 2019-06-25 09:52 | MM ---
Reason for exam: screening (asymptomatic). Last mammogram was performed 1 year and 1 month ago. History: Patient is postmenopausal. Benign stereotactic core biopsy of the right breast, 2008. Benign excisional biopsy of the right breast, 2006. Excisional biopsy of the right breast. Took estrogen for 1 year. Took progesterone for 1 year. Physical Findings: A clinical breast exam by your physician is recommended on an annual basis and results should be correlated with mammographic findings. MG 3D Screening Mammo W/Cad Bilateral CC and MLO view(s) were taken. Prior study comparison: May 17, 2018, right breast MG 3d work up w/cad RT. May 08, 2018, bilateral MG 3d screening mammo w/cad. The breast tissue is heterogeneously dense. This may lower the sensitivity of mammography. There is a smaller right upper outer quadrant middle posterior depth mass. Benign appearing bilateral calcifications. No suspicious abnormality. No significant changes when compared with prior studies. ASSESSMENT: Benign, BI-RAD 2 RECOMMENDATION: Routine screening mammogram of both breasts in 1 year.
== END | disposition home or self-care (01) ==
LOC: RADMAMWWP 07:59
PROVIDERS: ATTEND Family Medicine
DX: Z12.31 Encounter for screening mammogram for malignant neoplasm of breast (principal)
CPT/HCPCS: 77063; 77067

== ENCOUNTER 2019-09-26 10:38 | Day surgery (SDC) | payer MEDICARE, BC ==
[2019-09-25 10:26] VITALS: BMI 30.2
[~2019-09-26 10:38] MED LIST: LACTATED RINGERS 1,000 ML IV SCH; LIDOCAINE 1% 20 ML VIAL (10MG/ML) FOR IV START INTRADERMA PRN
[2019-09-26 11:16] VITALS: TEMP 97.8
[2019-09-26] MEDS ORDERED: LIDOCAINE 1% INJ 10MG/ML (20 ML MDV) ONE (11:49)
[2019-09-26] MEDS ORDERED: PROPOFOL 10 MG/ML 20 ML VIAL IV ONE (11:49)
--- NOTE | 2019-09-26 12:03 | P.PCN ---
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 She did well for 2 years. For the last 2 months she is been having intermittent dysphagia to solids and lately almost on a daily basis. Symptoms happen with every meal. No weight loss. No passive regurgitation and choking episodes. She denies any heartburn. In view of the symptoms she is scheduled for an upper endoscopy to evaluate further. PROCEDURE PERFORMED: Esophagogastroduodenoscopy with biopsy. PREOPERATIVE DIAGNOSIS: Progressive dysphagia to solids for the last 2 months duration. IV sedation per anesthesia. PROCEDURE: After informed consent was obtained, the patient was brought into the endoscopy unit. IV sedation was administered by Anesthesia under continuous monitoring. Initially the Olympus GIF-140 video endoscope was inserted into the mouth. Esophagus intubated without any difficulty. It was gradually advanced into the stomach and duodenum and carefully examined. The bulb and the second part of the duodenum appeared normal. The scope at this time was withdrawn to the stomach, adequately insufflated with air, and upon careful examination, mucosa of the antrum, body, cardia and the fundus appeared normal. The scope was then withdrawn into the esophagus. The GE junction was located at 40 cm from the incisors. It was patent. The esophagus appeared tortuous especially in the mid and distal esophagus with some whitish plaques noted which was biopsied. The proximal cervical esophagus appeared normal. There was no evidence of esophageal stricture. Patient tolerated the procedure well. IMPRESSION: 1. Tortuous mid and distal esophagus with patent GE junction and no evidence of esophageal stricture. 2. Small whitish plaques in the mid and proximal esophagus status post biopsy to rule out Jennifer esophagitis. RECOMMENDATIONS: The findings of this examination were discussed with the patient as well as a family. She'll be started on Prilosec 20 mg daily and the meantime will await the biopsy results. She'll be seen in office in 3-4 weeks. If she continues to have persistent this dysphagia, will consider repeat esophageal manometry..
[2019-09-26 12:07] VITALS: RESP 16
[2019-09-26 12:45] VITALS: BP 121/83; PULSE 62
== END 2019-09-26 12:50 | disposition home or self-care (01) ==
LOC: ORWHC2ENDO 10:38
PROVIDERS: ATTEND Internal Medicine Gastroenterology
DX: K21.0 Gastro-esophageal reflux disease with esophagitis (principal); K22.0 Achalasia of cardia; K22.8 Other specified diseases of esophagus; I10 Essential (primary) hypertension; F32.9 Major depressive disorder, single episode, unspecified; Z79.899 Other long term (current) drug therapy; Z79.890 Hormone replacement therapy; Z96.653 Presence of artificial knee joint, bilateral; Z90.49 Acquired absence of other specified parts of digestive tract; Z90.710 Acquired absence of both cervix and uterus; Z98.890 Other specified postprocedural states; Z97.2 Presence of dental prosthetic device (complete) (partial)
CPT/HCPCS: 88305; 43239; J2001; J2704

== ENCOUNTER → 2020-09-16 | Outpatient (CLI) | payer MEDICARE, BC ==
--- NOTE | 2020-09-18 11:01 | MM ---
Reason for exam: screening (asymptomatic). Last mammogram was performed 1 year and 3 months ago. History: Patient is postmenopausal. Benign stereotactic core biopsy of the right breast, 2008. Benign excisional biopsy of the right breast, 2006. Excisional biopsy of the right breast. Took estrogen for 1 year. Took progesterone for 1 year. Physical Findings: A clinical breast exam by your physician is recommended on an annual basis and results should be correlated with mammographic findings. MG 3D Screening Mammo W/Cad Bilateral CC and MLO view(s) were taken. Prior study comparison: June 24, 2019, bilateral MG 3d screening mammo w/cad. May 17, 2018, right breast MG 3d work up w/cad RT. The breast tissue is heterogeneously dense. This may lower the sensitivity of mammography. Stable benign calcifications. There is no discrete abnormality. No significant changes when compared with prior studies. ASSESSMENT: Benign, BI-RAD 2 RECOMMENDATION: Routine screening mammogram of both breasts in 1 year.
== END | disposition home or self-care (01) ==
LOC: RADMAMWWP 08:55
PROVIDERS: ATTEND Family Medicine
DX: Z12.31 Encounter for screening mammogram for malignant neoplasm of breast (principal)
CPT/HCPCS: 77063; 77067

== ENCOUNTER → 2020-10-30 | Outpatient (CLI) | payer MEDICARE, BC ==
--- NOTE | 2020-10-31 04:15 | MR ---
EXAMINATION TYPE: MR brain wo con DATE OF EXAM: 10/30/2020 COMPARISON: 11/12/2018 HISTORY: Frequent falls and tremors, dizziness, forgetfulness. Multiplanar multiecho imaging of the brain was performed without contrast. There is cerebral cortical atrophy. There is more involvement of the temporal lobes. There is no mass effect nor midline shift. There is no sign of intracranial hemorrhage. Diffusion images show no evid ence of an acute infarct. There is some thinning of the corpus callosum. There are some scattered whi te matter high signal foci in both cerebral hemispheres. Total number is approximately 10 and these m easure up to 5 mm. This is probably microvascular ischemia. Sella turcica is normal. There is no evidence of orbital mass. IMPRESSION: Cerebral atrophy that is more noticeable in the temporal lobes with enlargement of the sylvian fissur es. Scattered white matter high signal foci probably due to chronic small vessel ischemia. Brain appears not significantly different than old exam.
== END | disposition home or self-care (01) ==
LOC: RADMRIMAIN 18:43
PROVIDERS: ATTEND Psychiatry & Neurology Neurology
DX: G31.9 Degenerative disease of nervous system, unspecified (principal); G93.89 Other specified disorders of brain
CPT/HCPCS: 70551

== ENCOUNTER 2021-02-14 | Emergency (ER) | payer MEDICARE, BC | END 2021-02-14 22:41 | disposition home or self-care (01) ==

== ENCOUNTER 2021-03-10 12:04 | Emergency (ER) | payer MEDICARE, BC ==
[2021-03-10 12:32] VITALS: TEMP 98.1
[2021-03-10] MEDS ORDERED: KETOROLAC 15 MG/ML 1 ML VIAL IM STA (14:02)
[2021-03-10 15:27] LABS: Amphetamine Screen,Urine Not Detected (NotDetected); Barbiturate Screen,Urine Not Detected (NotDetected); Benzodiazepines Screen,Urine Detected (NotDetected); Cocaine Screen,Urine Not Detected (NotDetected); Methadone Screen, Urine Not Detected (NotDetected); Opiate Screen,Urine Detected (NotDetected); Oxycodone Screen, Urine Not Detected (NotDetected); Phencyclidine Screen,Urine Not Detected (NotDetected); Tricyclic Antidepressant,Urine Not Detected (NotDetected); Urn Cannabinoid Scrn Detected (NotDetected)
--- NOTE | 2021-03-10 16:01 | ED ---
Psych HPI - General Chief Complaint: Psychiatric Symptoms Stated Complaint: Back injury-Fall Time Seen by Provider: 03/10/21 13:58 Source: patient, RN notes reviewed Mode of arrival: wheelchair - History of Present Illness Initial Comments: Patient is a 76-year-old female that presents to emergency department complaining of suicidal ideations secondary to low back pain and sciatica. She notes that she's been doing physical therapy taking her pain medications. She notes that the pain has flip-flop sides. She notes that she is in significant amount pain. She denied any new injury or trauma. She denied any saddle anesthesia bladderbowel incontinence/retention. She was otherwise a well- appearing 76-year-old female who appeared to be in moderate amounts of discomfort while laying in bed. She denied any chest pain shortness of breath headache nausea vomiting diarrhea constipation fever fatigue chills. - Related Data Home Medications Medication Instructions Recorded Confirmed Aspirin 81 mg PO HS 10/22/15 03/10/21 Simvastatin [Zocor] 20 mg PO HS 10/22/15 03/10/21 Vitamin E (Dl,Tocopheryl Acet) 400 unit PO HS 10/22/15 03/10/21 [Vitamin E (400 Iu = 180 mg)] amLODIPine BESYLATE [Norvasc] 5 mg PO DAILY 10/22/15 03/10/21 Ascorbic Acid [Vitamin C] 500 mg PO DAILY 04/19/19 03/10/21 LORazepam [Ativan] 1 mg PO TID PRN 04/19/19 03/10/21 Oxybutynin Chloride 5 mg PO TID 04/19/19 03/10/21 Pramipexole [Mirapex] 0.5 mg PO HS 04/19/19 03/10/21 Pramipexole [Mirapex] 1 mg PO DAILY 04/19/19 03/10/21 Venlafaxine HCl ER [Effexor XR] 150 mg PO DAILY 04/19/19 03/10/21 Deutetrabenazine [Austedo] 6 mg PO DAILY 09/25/19 03/10/21 traZODone HCL [Desyrel] 150 mg PO HS 09/25/19 03/10/21 Cyclobenzaprine HCl 5 mg PO TID PRN 03/10/21 03/10/21 Deutetrabenazine [Austedo] 12 mg PO HS 03/10/21 03/10/21 Famotidine [Pepcid] 20 mg PO DAILY 03/10/21 03/10/21 HYDROcodone/APAP 7.5-325MG [Hope 1 tab PO Q6H PRN 03/10/21 03/10/21 7.5-325] Omeprazole [PriLOSEC] 20 mg PO DAILY 03/10/21 03/10/21 Venlafaxine HCl ER [Effexor Xr] 75 mg PO DAILY 03/10/21 03/10/21 Vitamin B Complex 1 cap PO DAILY 03/10/21 03/10/21 Vitamin C/Biotin [Hair, Skin and 1 tab PO DAILY 03/10/21 03/10/21 Nails] lamoTRIgine [LaMICtal] 100 mg PO BID 03/10/21 03/10/21 Previous Rx's Medication Instructions Recorded Levothyroxine Sodium [Synthroid] 88 mcg PO DAILY 30 Days #30 tab 10/01/18 Ketorolac [Toradol] 10 mg PO Q8HR #15 tab 03/10/21 Allergies Allergy/AdvReac Type Severity Reaction Status Date / Time aripiprazole [From Abilify] AdvReac Nausea & Verified 03/10/21 15:07 Vomiting chlorpromazine HCl AdvReac "PASSED Verified 03/10/21 15:07 [From Thorazine] OUT" codeine AdvReac SEVERE Verified 03/10/21 15:07 VOMITNG, PASSED OUT Review of Systems ROS Statement: Those systems with pertinent positive or pertinent negative responses have been documented in the HPI. ROS Other: All systems not noted in ROS Statement are negative. Past Medical History Past Medical History: GERD/Reflux, Hyperlipidemia, Hypertension, Osteoarthritis (OA), Thyroid Disorder Additional Past Medical History / Comment(s): CONSTIPATION, HAS TROUBLE SWALLOWING AT TIMES" History of Any Multi-Drug Resistant Organisms: None Reported Past Surgical History: Hysterectomy, Joint Replacement, Tubal Ligation Additional Past Surgical History / Comment(s): CATARACT -BILATERAL , RIGHT SHOULDER, TOTAL LEFT KNEE. Esophageal opening surgery, Past Anesthesia/Blood Transfusion Reactions: No Reported Reaction Past Psychological History: Anxiety, Bipolar, Depression Smoking Status: Never smoker Past Alcohol Use History: None Reported Past Drug Use History: None Reported - Past Family History Mother Family Medical History: Congestive Heart Failure (CHF), CVA/TIA Brother(s) Family Medical History: Cancer Additional Family Medical History / Comment(s): THROAT CANCER General Exam Limitations: no limitations General appearance: alert, in no apparent distress Head exam: Present: atraumatic, normocephalic, normal inspection Eye exam: Present: normal appearance, PERRL, EOMI. Absent: scleral icterus, conjunctival injection, periorbital swelling Neck exam: Present: normal inspection Respiratory exam: Present: normal lung sounds bilaterally. Absent: respiratory distress, wheezes, rales, rhonchi, stridor Cardiovascular Exam: Present: regular rate, normal rhythm, normal heart sounds. Absent: systolic murmur, diastolic murmur, rubs, gallop, clicks Extremities exam: Present: normal inspection, full ROM, normal capillary refill. Absent: tenderness, pedal edema, joint swelling, calf tenderness Back exam: Present: normal inspection, tenderness (Over the left SI) Neurological exam: Present: alert, oriented X3 Psychiatric exam: Present: normal affect, normal mood Skin exam: Present: warm, dry, intact, normal color. Absent: rash Course Vital Signs 03/10/21 12:26 Temperature 98.1 F Pulse Rate 87 Respiratory 20 Rate Blood Pressure 104/80 O2 Sat by Pulse 96 Oximetry Medical Decision Making - Medical Decision Making 76-year-old female complaining of suicidal ideations secondary to back pain. She notes that she wants to throw herself off the stairs. Urine drug screen, breath alcohol test, 15 mg of Toradol ordered. EPS was notified and will not be admitting the patient. Case discussed with Dr. Cantu, patient can discharge home with follow-up to primary care. - Lab Data Lab Results 03/10/21 Range/Units 14:55 Urine Opiates Screen Detected H (NotDetected) Ur Oxycodone Screen Not Detected (NotDetected) Urine Methadone Screen Not Detected (NotDetected) Ur Propoxyphene Screen Not Detected (NotDetected) Ur Barbiturates Screen Not Detected (NotDetected) U Tricyclic Antidepress Not Detected (NotDetected) Ur Phencyclidine Scrn Not Detected (NotDetected) Ur Amphetamines Screen Not Detected (NotDetected) U Methamphetamines Scrn Not Detected (NotDetected) U Benzodiazepines Scrn Detected H (NotDetected) Urine Cocaine Screen Not Detected (NotDetected) U Marijuana (THC) Screen Detected H (NotDetected) Disposition Clinical Impression: Strain of lumbar region, Sciatica, Suicidal thoughts Disposition: HOME SELF-CARE Condition: Stable Instructions (If sedation given, give patient instructions): Sciatica (ED) Additional Instructions: Please return to the Emergency Department if symptoms worsen or any other concerns. Follow-up with outpatient psych as planned. Follow-up with primary care 2 days. Follow-up with pain management as needed. Take Toradol as prescribed. Avoid any excessive exercise or lifting. Prescriptions: Ketorolac [Toradol] 10 mg PO Q8HR #15 tab Is patient prescribed a controlled substance at d/c from ED?: No Referrals: Luis Alvarez DO [Primary Care Provider] - 1-2 days Time of Disposition: 16:00
[2021-03-10 16:20] VITALS: BP 136/79; PULSE 86; RESP 16
== END 2021-03-10 16:33 | disposition home or self-care (01) ==
LOC: EC 12:04
DX: R45.851 Suicidal ideations (principal); S39.012A Strain of muscle, fascia and tendon of lower back, initial encounter; M54.30 Sciatica, unspecified side; E78.5 Hyperlipidemia, unspecified; I10 Essential (primary) hypertension; M19.90 Unspecified osteoarthritis, unspecified site; F41.9 Anxiety disorder, unspecified; F31.9 Bipolar disorder, unspecified; K21.9 Gastro-esophageal reflux disease without esophagitis; Z79.899 Other long term (current) drug therapy
CPT/HCPCS: 99284; 96374; 82075; 80306; J1885

== ENCOUNTER → 2021-10-11 | Outpatient (CLI) | payer MEDICARE, BC ==
--- NOTE | 2021-10-13 12:33 | MM ---
Reason for exam: screening (asymptomatic). Last mammogram was performed 1 year and 1 month ago. History: Patient is postmenopausal. Benign stereotactic core biopsy of the right breast, 2008. Benign excisional biopsy of the right breast, 2006. Excisional biopsy of the right breast. Took estrogen for 1 year. Took progesterone for 1 year. Physical Findings: A clinical breast exam by your physician is recommended on an annual basis and results should be correlated with mammographic findings. MG 3D Screening Mammo W/Cad Bilateral CC and MLO view(s) were taken. Prior study comparison: September 16, 2020, bilateral MG 3d screening mammo w/cad. June 24, 2019, bilateral MG 3d screening mammo w/cad. There are scattered fibroglandular densities. Benign oil cyst and grouped course calcifications are redemonstrated bilaterally. No significant changes when compared with prior studies. ASSESSMENT: Benign, BI-RAD 2 RECOMMENDATION: Routine screening mammogram of both breasts in 1 year.
== END | disposition home or self-care (01) ==
LOC: RADMAMWWP 13:19
PROVIDERS: ATTEND Family Medicine
DX: Z12.31 Encounter for screening mammogram for malignant neoplasm of breast (principal); Z78.0 Asymptomatic menopausal state
CPT/HCPCS: 77063; 77067

== ENCOUNTER → 2022-02-16 | Outpatient (CLI) | payer MEDICARE, BC ==
--- NOTE | 2022-02-16 14:27 | US ---
EXAMINATION TYPE: US bladder DATE OF EXAM: 02/16/2022 COMPARISON: NONE CLINICAL HISTORY: N39.0 UTI. multiple UTI's over this past year, on antibiotics EXAM MEASUREMENTS: Post Void Residual Volume: 206 mL Bladder adequately distended without intraluminal mass or abnormal wall thickening. Color Doppler performed to assess ureteral jets. Bilateral Jets seen: yes Normal Post Void Residual (less than 50ml): NO IMPRESSION: Incomplete emptying of bladder or abnormal post void residual noted.
== END | disposition home or self-care (01) ==
LOC: RADUSWWP 12:54
PROVIDERS: ATTEND Family Medicine
DX: N39.0 Urinary tract infection, site not specified (principal)
CPT/HCPCS: 76857

== ENCOUNTER → 2022-05-26 | Outpatient (CLI) | payer MEDICARE, BC ==
--- NOTE | 2022-05-26 16:04 | NM ---
EXAMINATION TYPE: NM bone scan whole body DATE OF EXAM: 05/26/2022 COMPARISON: Outside lumbar spine x-ray May 03, 2022 HISTORY: Spondylolisthesis. Right hip pain down right leg. History of right shoulder and left knee mobley rgery. Repeat fall injury. Delayed whole-body scanning was performed following the injection of 22.2 mCi Tc 99m MDP. Images acq uired 3 hours post injection. FINDINGS: Some areas of increased uptake throughout the mid to lower lumbar spine thought to correspond to area s of increased degenerative change greatest right L5-S1 level. Small focus of increased radiotracer uptake right mid thoracic vertebral level favors product of dege nerative change. Since the from prosthesis in the left knee is noted. No suspicious radiotracer uptake in the bilatera l ribs or sternum. Normal excretion. Increased uptake right foot near the anterior talus favors degenerative change, correlate clinically. Areas of increased uptake in the bilateral upper face could reflect products of paranasal sinus disea se or maxillary dental infection. Correlate clinically. IMPRESSION: As above.
== END | disposition home or self-care (01) ==
LOC: RADNMMAIN 11:14
PROVIDERS: ATTEND Physical Medicine & Rehabilitation
DX: M47.27 Other spondylosis with radiculopathy, lumbosacral region (principal)
CPT/HCPCS: 78306; A9503

== ENCOUNTER → 2022-06-13 | Outpatient (CLI) | payer MEDICARE, BC ==
--- NOTE | 2022-06-13 07:30 | CT ---
EXAMINATION TYPE: CT orbits wo con DATE OF EXAM: 06/13/2022 COMPARISON: None. HISTORY: Fall, Lt eye struck corner of table, pain, double vision CT DLP: 275.6 mGycm Automated exposure control for dose reduction was used. FINDINGS: The orbital floors and purcell are intact bilaterally. The globes are intact bilaterally. Intraconal fa t is preserved. Zygomatic arches are intact. Nasal bones are intact. Visualized portion of the upper mandible is inta ct. Temporomandibular joints are maintained bilaterally. The pterygoid plates are intact. The maxilla is intact. Mild mucosal thickening in the right maxillary sinus otherwise paranasal sinuses are grossly clear. V isualized portion of brain parenchyma is unremarkable. IMPRESSION: No acute or subacute displaced orbital fracture.
== END | disposition home or self-care (01) ==
LOC: RADCTMAIN 07:01
PROVIDERS: ATTEND Ophthalmology
DX: S02.32XA Fracture of orbital floor, left side, initial encounter for closed fracture (principal); H53.2 Diplopia
CPT/HCPCS: 70480

== ENCOUNTER 2022-08-26 05:36 | Day surgery (SDC) | payer MEDICARE, BC ==
[2022-08-26] MEDS ORDERED: LACTATED RINGERS 1,000 ML IV SCH (06:07)
[2022-08-26] MEDS ORDERED: ONDANSETRON 4 MG/2 ML VIAL IVP ONE (06:07)
[2022-08-26] MEDS ORDERED: DEXAMETHASONE SOD PHOSPHATE 4 MG/ML 1 ML VIAL IV ONE (06:07)
[2022-08-26] MEDS ORDERED: MIDAZOLAM 2 MG/2 ML VIAL IV PRN (06:07)
[2022-08-26] MEDS ORDERED: fentaNYL (PF) 50 MCG/1 ML VIAL IVP ONE (06:53)
[2022-08-26] MEDS ORDERED: MIDAZOLAM 2 MG/2 ML VIAL IVP ONE (06:53)
[2022-08-26] MEDS ORDERED: fentaNYL (PF) 50 MCG/ML 2 ML AMP IV PRN (07:00)
[2022-08-26] MEDS ORDERED: PROPOFOL 10 MG/ML 20 ML VIAL IV ONE (07:25)
[2022-08-26] MEDS ORDERED: ROPIVACAINE 5 MG/ML 30 ML VIAL ONE (07:25)
[2022-08-26] MEDS ORDERED: SUCCINYLCHOLINE CHLORIDE 200 MG/10 ML VIAL IV ONE (07:25)
[2022-08-26] MEDS ORDERED: ePHEDrine 50 MG/ML 1 ML VIAL ONE (07:25)
[2022-08-26] MEDS ORDERED: PHENYLEPHRINE-0.9% NACL SYG 1,000 MCG/10 ML SYRINGE ONE (07:25)
[2022-08-26] MEDS ORDERED: WATER FOR INJECTION, STERILE 10 ML VIAL IV ONE (07:25)
[2022-08-26] MEDS ORDERED: LIDOCAINE 2% INJ 20 MG/ML (2 ML VIAL) ONE (07:25)
--- NOTE | 2022-08-26 07:34 | P.ANPRN ---
Procedure Note - Anesthesia - Nerve Block Performed Right Popliteal Single Time Out Performed: Yes Date of Procedure: 08/26/22 Procedure Start Time: 06:49 Procedure Stop Time: 06:54 Location of Patient: PreOp Indication: Acute Post-Operative Pain, Requested by Surgeon Sedation Type: Sedate with meaningful contact maintained Preparation: Sterile Prep Position: Supine Needle Types: Pajunk Needle Gauge: 21 Ultrasound used to visualize needle placement: Yes Ultrasound used to observe medication spread: Yes Injectate: 0.5% Ropivacaine (see comment for volume) (20 ml) Blood Aspirated: No Pain Paresthesia on Injection Noted: No Resistance on Injection: Normal Events: Uneventful and Well Tolerated
--- NOTE | 2022-08-26 07:35 | P.ANPRN ---
Procedure Note - Anesthesia - Nerve Block Performed Right Saphenous/Obturator Single Time Out Performed: Yes Date of Procedure: 08/26/22 Procedure Start Time: 06:55 Procedure Stop Time: 07:01 Location of Patient: PreOp Indication: Acute Post-Operative Pain, Requested by Surgeon Sedation Type: Sedate with meaningful contact maintained Preparation: Sterile Prep Position: Supine Needle Types: Pajunk Needle Gauge: 21 Ultrasound used to visualize needle placement: Yes Ultrasound used to observe medication spread: Yes Injectate: 0.5% Ropivacaine (see comment for volume) (20 ml) Blood Aspirated: No Pain Paresthesia on Injection Noted: No Resistance on Injection: Normal Image Stored and Saved: Yes Events: Uneventful and Well Tolerated
[2022-08-26 09:26] VITALS: TEMP 97.6
[2022-08-26 10:36] VITALS: BP 98/67; PULSE 78; RESP 18
--- NOTE | 2022-08-31 11:34 | OP ---
OPERATIVE REPORT PREOPERATIVE DIAGNOSES: 1. Posterior tibial tendonitis, right foot. 2. Acquired deformity, right foot. 3. Equinus, right ankle. POSTOPERATIVE DIAGNOSES: 1. Posterior tibial tendonitis, right foot. 2. Acquired deformity, right foot. 3. Subluxation of tarsal joint, right foot. 4. Equinus, right ankle. PROCEDURES: 1. Flexor digitorum longus tendon transfer, right foot. 2. Baptiste calcaneal osteotomy with allograft, right foot. 3. Repair of dislocated tarsal joint, right foot. 4. Gastroc recession, right leg. ANESTHESIA: General with preoperative nerve block. HEMOSTASIS: Right thigh tourniquet at 250 mmHg. ESTIMATED BLOOD LOSS: Minimal. MATERIALS: 10 mm x 20 mm x 20 mm Baptiste allograft, 20 mm x 20 mm compression staple, 5.5 mm x 15 mm interference screw. INJECTABLES: None. SPECIMENS: None. COMPLICATIONS: None. DESCRIPTION OF PROCEDURE: Prior to the patient being brought to the operating room, Anesthesia administered nerve block on the right lower extremity. The patient was then brought into the operating room and placed on table in supine position. A time-out was taken to confirm correct patient identifiers, correct laterality, and correct procedure. When all staff in the room were in agreement with the time-out, the patient was induced and placed under general anesthesia. A well-padded tourniquet was placed on the right thigh, and a wedge underneath the right hip to internally rotate the right leg, and then the right leg was prepped and draped in the usual manner. The leg was exsanguinated and the tourniquet inflated to 250 mmHg. Attention directed to the lateral aspect of the hindfoot over the calcaneocuboid joint. A linear incision was made over this area, was deepened down to the subcutaneous tissue, careful to identify avoid any retracting neurovascular structures and cauterize any bleeding vessels. Blunt dissection was taken down through the fascia overlying the peroneal tendons. The fascia was incised superior to the peroneal tendons and then the peroneal tendons were reflected in 1 flap off the anterior process of the calcaneus and then any other tissue was reflected off the dorsal aspect of the anterior process of the calcaneus. The calcaneocuboid joint was identified and then the area measured approximately 12 mm proximal to the joint and marked on the bone. Then, the Baptiste osteotomy was performed straight lateral to medial. Once completed, osteotome was inserted to free any soft tissue attachment, and then pins for a distractor were placed on either side of the osteotomy. The distractor was placed over the wires and the osteotomy opened. Sizers were used to determine the appropriate size graft when the 10 mm x 20 mm x 20 mm sizer was inserted. The deformity was well corrected, and the sizer was properly fit in the area. The sizer was removed and then a same size allograft was inserted and impacted down to proper depth. Fluoroscopy was used to check the confirmation of the positioning and correction of both were deemed to be acceptable. The distractor and guidewires were removed, and the drill holes for a 20 mm x 20 mm compression staple were made on either side of the graft. Staple was inserted with the legs stretched, and then once inserted, it was removed allowing the legs to deploy and create compression across the graft and then an impactor was used to seat the staple fully so that it was flat against the bone and fluoroscopic imaging confirmed the proper placement of the hardware. The wound was thoroughly irrigated with antibiotic saline. Deep closure was done with 2-0 Vicryl, subcutaneous closure was done with 4-0 Monocryl. Skin closure was done with talita. At that point, the wedge was removed so that the right leg to be externally rotated, and then attention directed to the posterior leg just distal to the calf musculature, where an incision was made medial to the midline. It was deepened down to the subcutaneous tissue, careful to identify avoid any retracting neurovascular structures and cauterize any bleeding vessels. Blunt dissection was carried down through the subcutaneous layer down to the deep fascia. The instrumentation was inserted deep to the fascia to protect underlying structures and then the fascia was incised. Blunt dissection was continued to make it sure to protect the sural nerve and vascular structures down to the gastroc aponeurosis. The tissue was incised over the aponeurosis and then bluntly dissected off the aponeurosis. A transverse incision was made through the aponeurosis distal to the gastroc muscle belly from lateral to medial, and then the ankle was dorsiflexed and the gap appeared at the resection point indicating a full release. That wound was also irrigated with sterile saline. The subcutaneous closure was done with 4-0 Monocryl. Skin closure was done with talita. Then, attention directed to the medial aspect of the hind foot, where an incision was made following the course of the posterior tibial tendon. It was deepened down to the subcutaneous tissue, careful to identify avoid any retracting neurovascular structures and cauterize any bleeding vessels. Blunt dissection was continued down to the posterior tibial tendon sheath, which was incised superior to the tendon and reflected plantarly. The posterior tibial tendon was followed out through the navicular insertion at which point the tendon was sharply dissected off the insertion of the navicular. It was also noted that the tendon was enlarged and thickened and had discoloration and evidence of degeneration. Once that was completed, the sheath was opened proximal to the ankle joint so that the flexor digitorum longus tendon was also visible. A [id number] anastomosis with the posterior tibial tendon and flexor digitorum longus was then performed at this time, and then the posterior tibial tendon was resected just distal to the anastomosis, removed from the surgical field. At this point, the spring ligament was identified and, there were noted to be a tear in the ligament at the talonavicular joint, so a wedge resection was performed to repair the subluxation of the joint. Once that wedge of capsule was removed, nonabsorbable suture was then used to repair the area and retighten the ligament while holding the foot inverted. The flexor digitorum longus tendon was identified just distal to the anastomosis and then the sheath was opened into the mid foot and followed down into the mid foot just proximal to the knot of Nathan. The tendon was sharply resected and delivered in the surgical field. A guidewire for the placement of the reamer was then placed into the body and navicular under direct fluoroscopic visualization to avoid the talonavicular joint and navicular cuneiform joint. Once that was in place, the foot was held in neutral position, and the tendon pulled under tension until it lined up with the wire, and a jesu was made on the tendon, and then a whipstitch was placed through the tendon starting at that line and extending distally. That area was measured for the proper depth of the reaming, and then the reamer was placed over the guidewire and reamed to the depth previously measured. Then, the guidewire was removed. 4.75 SwiveLock anchor with a suture loop at the end was then used to capture the distal end of the tendon, and with tendon held under proper tension and the foot in neutral position, the tendon was inserted into the drill hole bearing the tendon in the drill hole to proper depth at the line previously marked. Then, the anchor was advanced locking this suture and tendon into the navicular. Once completed, the foot was placed in neutral position and there was noted to be proper tensioning of the posterior tibial tendon. All suture was then cut, and the wound thoroughly irrigated with antibiotic saline. 0 Vicryl was used to close the sheath over the tendon transfer area. Subcutaneous closure was done with 3-0 Monocryl. Skin closure was done with talita. At that point, position was confirmed that the transverse plane correction was completed and the coronal plane was improved with the heel more in a rectus alignment with the lower leg. All the incisions were covered with a Jumpstart dressing from [employer]. Then, a bulky dry dressing was applied to the right leg and foot. The tourniquet was released. Capillary refill returned to all digits on the right foot. The patient was placed in a well-padded well-molded plaster posterior mold/sugar-tong splint. The ankle was held in neutral position and the foot slightly inverted as it dried. Once dried, anesthesia was reversed, and the patient was taken to recovery room with vital signs stable. MMODL / IJN: [id number] /
== END 2022-08-26 11:05 | disposition home or self-care (01) ==
LOC: OR 05:36
PROVIDERS: ATTEND Podiatrist
DX: M76.821 Posterior tibial tendinitis, right leg (principal); M21.961 Unspecified acquired deformity of right lower leg; G89.18 Other acute postprocedural pain; E78.5 Hyperlipidemia, unspecified; F32.A Depression, unspecified; E03.9 Hypothyroidism, unspecified; K21.9 Gastro-esophageal reflux disease without esophagitis; R06.02 Shortness of breath; E07.9 Disorder of thyroid, unspecified; G24.01 Drug induced subacute dyskinesia; Z79.890 Hormone replacement therapy; Z79.899 Other long term (current) drug therapy; Z79.01 Long term (current) use of anticoagulants; Z79.82 Long term (current) use of aspirin
CPT/HCPCS: 64450; 64445; 76942; 27687; 27691; 28202; 28300; C1713; J2250; J0330; J1100; J0690; J2405; J2795; J2370; J2704; J2001; J3010

== ENCOUNTER → 2022-11-02 | Outpatient (CLI) | payer MEDICARE, BC ==
--- NOTE | 2022-11-03 09:23 | MM ---
Reason for Exam: Screening (asymptomatic). Last screening mammogram was performed 12 month(s) ago. Patient History: Menarche at age 13. First Full-Term at age 22. Hysterectomy at age 52. Postmenopausal. Patient used Estrogen for 1 year. Patient used Progesterone for 1 year. 2008, Benign Stereotactic Core Biopsy on the right side. 2006, Benign Excisional Biopsy on the right side. Excisional Biopsy on the Right side. Risk Values: Marce 5 year model risk: 2.6%. NCI Lifetime model risk: 5.6%. Prior Study Comparison: 12/28/2015 Bilateral Screening Mammogram, [facility]. 03/31/2017 Bilateral Screening Mammogram, [facility]. 05/08/2018 Bilateral Screening Mammogram, [facility]. 06/24/2019 Bilateral Screening Mammogram, [facility]. 09/16/2020 Bilateral Screening Mammogram, [facility]. 10/11/2021 Bilateral Screening Mammogram, [facility]. Tissue Density: The breast tissue is heterogeneously dense. This may lower the sensitivity of mammography. Findings: Analyzed By CAD. There is no suspicious group of microcalcifications or new suspicious mass in either breast. Overall Assessment: Negative, BI-RAD 1 Management: Screening Mammogram of both breasts in 1 year. A clinical breast exam by your physician is recommended on an annual basis and results should be correlated with mammographic findings. [facility] will attempt to contact patient to return for supplemental views and ultrasound if indicated. Electronically signed and approved by: Cullen Tucker DO
== END | disposition home or self-care (01) ==
LOC: RADMAMWWP 09:15
PROVIDERS: ATTEND Family Medicine
DX: Z12.31 Encounter for screening mammogram for malignant neoplasm of breast (principal); Z78.0 Asymptomatic menopausal state
CPT/HCPCS: 77063; 77067

== ENCOUNTER 2022-12-29 00:31 | Observation (INO) | payer MEDICARE, BC ==
[2022-12-29] MEDS ORDERED: SODIUM CHLORIDE 0.9% 500 ML 500 ML IV STA (00:49)
[2022-12-29] MEDS ORDERED: ASPIRIN 81 MG PO STA (00:49)
--- NOTE | 2022-12-29 01:10 | ED ---
Chest Pain HPI - General Chief Complaint: Chest Pain Stated Complaint: CHEST PAIN Time Seen by Provider: 12/29/22 00:39 Source: patient Mode of arrival: EMS Limitations: no limitations - History of Present Illness Initial Comments: Patient is a 77-year-old female presenting with chief complaint of chest pain. Patient started having sharp centralized chest pain about 2 hours prior to arrival. No radiation of pain down the arm or up the neck. No radiation of pain to the back. No abdominal pain, nausea, vomiting. No cough, congestion, sore throat, fever, chills. No lower extremity swelling. No shortness of breath. - Related Data Home Medications Medication Instructions Recorded Confirmed Aspirin 81 mg PO HS 10/22/15 08/26/22 Simvastatin [Zocor] 20 mg PO HS 10/22/15 08/26/22 Vitamin E (Dl,Tocopheryl Acet) 400 unit PO HS 10/22/15 08/26/22 [Vitamin E (400 Iu = 180 mg)] amLODIPine BESYLATE [Norvasc] 5 mg PO DAILY 10/22/15 08/26/22 Ascorbic Acid [Vitamin C] 500 mg PO DAILY 04/19/19 08/26/22 LORazepam [Ativan] 1 mg PO TID PRN 04/19/19 08/26/22 Oxybutynin Chloride 5 mg PO TID 04/19/19 08/26/22 Pramipexole [Mirapex] 0.5 mg PO HS 04/19/19 08/26/22 Pramipexole [Mirapex] 1 mg PO DAILY 04/19/19 08/26/22 Venlafaxine HCl ER [Effexor XR] 150 mg PO DAILY 04/19/19 08/26/22 Deutetrabenazine [Austedo] 6 mg PO DAILY 09/25/19 08/26/22 traZODone HCL [Desyrel] 150 mg PO HS 09/25/19 08/26/22 Cyclobenzaprine HCl 5 mg PO TID PRN 03/10/21 08/26/22 Deutetrabenazine [Austedo] 12 mg PO HS 03/10/21 08/26/22 Famotidine [Pepcid] 20 mg PO DAILY 03/10/21 08/26/22 HYDROcodone/APAP 7.5-325MG [[place] 1 tab PO Q6H PRN 03/10/21 08/26/22 7.5-325] Omeprazole [PriLOSEC] 20 mg PO DAILY 03/10/21 08/26/22 Venlafaxine HCl ER [Effexor Xr] 75 mg PO DAILY 03/10/21 08/26/22 Vitamin B Complex 1 cap PO DAILY 03/10/21 08/26/22 Vitamin C/Biotin [Hair, Skin and 1 tab PO DAILY 03/10/21 08/26/22 Nails] lamoTRIgine [LaMICtal] 100 mg PO BID 03/10/21 08/26/22 Sulfamethoxazole/Trimethoprim 1 tab PO BID 08/23/22 08/26/22 [Sulfamethoxazole-Tmp Ds Tablet] traMADol HCL 50 mg PO BID PRN 08/23/22 08/26/22 Previous Rx's Medication Instructions Recorded Levothyroxine Sodium [Synthroid] 88 mcg PO DAILY 30 Days #30 tab 10/01/18 Ketorolac [Toradol] 10 mg PO Q8HR #15 tab 03/10/21 HYDROcodone/APAP 5-325MG [[place] 1 tab PO Q6HR PRN #28 tab 08/26/22 5-325] Allergies Allergy/AdvReac Type Severity Reaction Status Date / Time aripiprazole [From Abilify] AdvReac Nausea & Verified 08/26/22 06:17 Vomiting codeine AdvReac SEVERE Verified 08/26/22 06:17 VOMITNG, PASSED OUT Review of Systems ROS Statement: Those systems with pertinent positive or pertinent negative responses have been documented in the HPI. ROS Other: All systems not noted in ROS Statement are negative. EKG Findings - EKG Comments: EKG Findings:: EKG interpreted by me. Sinus rhythm. Ventricular rate 89. MT interval 191. QRS obesity. QT 382. QTC 428. No ischemic changes. Past Medical History Past Medical History: GERD/Reflux, Hyperlipidemia, Hypertension, Osteoarthritis (OA), Thyroid Disorder Additional Past Medical History / Comment(s): CONSTIPATION, HAS TROUBLE SWALLOWING AT TIMES" History of Any Multi-Drug Resistant Organisms: None Reported Past Surgical History: Hysterectomy, Joint Replacement, Tubal Ligation Additional Past Surgical History / Comment(s): CATARACT -BILATERAL , RIGHT SHOULDER, TOTAL LEFT KNEE. Esophageal opening surgery, Past Anesthesia/Blood Transfusion Reactions: No Reported Reaction Past Psychological History: Anxiety, Bipolar, Depression Past Alcohol Use History: None Reported - Past Family History Mother Family Medical History: Congestive Heart Failure (CHF), CVA/TIA Brother(s) Family Medical History: Cancer Additional Family Medical History / Comment(s): THROAT CANCER General Exam Limitations: no limitations General appearance: alert, in no apparent distress Head exam: Present: atraumatic, normocephalic, normal inspection Eye exam: Present: normal appearance, EOMI. Absent: scleral icterus, periorbital swelling Neck exam: Present: normal inspection, full ROM Respiratory exam: Present: normal lung sounds bilaterally, chest wall tenderness. Absent: respiratory distress, wheezes, rales, rhonchi, stridor Cardiovascular Exam: Present: regular rate, normal rhythm, normal heart sounds. Absent: systolic murmur, diastolic murmur, rubs, gallop, clicks Neurological exam: Present: alert, oriented X3, CN II-XII intact Psychiatric exam: Present: normal affect, normal mood Skin exam: Present: warm, dry, intact, normal color. Absent: rash Course Vital Signs 12/29/22 12/29/22 12/29/22 00:33 00:49 02:05 Temperature 98.1 F Pulse Rate 94 99 80 Respiratory 20 18 18 Rate Blood Pressure 138/83 145/80 O2 Sat by Pulse 95 96 96 Oximetry Chest Pain MDM - MDM Was pt. sent in by a medical professional or institution (, PA, PATIENT REGISTRATION SPECIALIST, urgent care, hospital, or snf...) When possible be specific @ -No Did you speak to anyone other than the patient for history (EMS, parent, family, police, friend...)? What history was obtained from this source @ -No Did you review nursing and triage notes (agree or disagree)? Why? @ -I reviewed and agree with nursing and triage notes Were old charts reviewed (outside hosp., previous admission, EMS record, old EKG, old radiological studies, urgent care reports/EKG's, snf records)? Report findings @ -No old charts were reviewed Differential Diagnosis (chest pain, altered mental status, abdominal pain women, abdominal pain men, vaginal bleeding, weakness, fever, dyspnea, syncope, headache, dizziness, GI bleed, back pain, seizure, CVA, palpatations, mental health, musculoskeletal)? @ -[facility] Differential Chest Pain: Stable Angina, Unstable Angina, STEMI, NSTEMI Aortic Dissection, Pneumothorax, Musculoskeletal, Esophageal Spasm GERD, Cholecystitis, Pancreatitis, Zoster This is not meant to be an all-inclusive list. EKG interpreted by me (3pts min.). @ -As above X-rays interpreted by me (1pt min.). @ -Chest x-ray shows slightly prominent interstitial markings CT interpreted by me (1pt min.). @ -None done U/S interpreted by me (1pt. min.). @ -None done What testing was considered but not performed or refused? (CT, X-rays, U/S, labs)? Why? @ -None What meds were considered but not given or refused? Why? @ -None Did you discuss the management of the patient with other professionals (professionals i.e. , PA, PATIENT REGISTRATION SPECIALIST, lab, RT, psych nurse, social service director, arc air operator, teacher, police officer booking, pillowcase cutter)? Give summary @ -Attending spoke with Dr. Carlos who accepted admission Was smoking cessation discussed for >3mins.? @ -No Was critical care preformed (if so, how long)? @ -No Were there social determinants of health that impacted care today? How? (Homelessness, low income, unemployed, alcoholism, drug addiction, transportation, low edu. Level, literacy, decrease access to med. care, residential, rehab)? @ -No Was there de-escalation of care discussed even if they declined (Discuss DNR or withdrawal of care, Hospice)? DNR status @ -No What co-morbidities impacted this encounter? (DM, HTN, Smoking, COPD, CAD, Cancer, CVA, ARF, Chemo, Hep., AIDS, mental health diagnosis, sleep apnea, morbid obesity)? @ -Hypertension, hyperlipidemia Was patient admitted / discharged? Hospital course, mention meds given and route, prescriptions, significant lab abnormalities, going to OR and other pertinent info. @ -Patient is a 77-year-old female presenting with chief complaint of chest pain that started 2 hours prior to arrival. Pain is sharp in nature. Pain is reproducible on palpation. Heart and lungs are clear to auscultation. Workup is essentially negative with negative troponin. Chest x-ray shows slightly prominent interstitial markings an EKG shows no ischemic changes. Patient will be admitted for observation and evaluation by cardiology in the morning. Patient is agreeable with this plan. I discussed this case with my attending Dr. Beth Undiagnosed new problem with uncertain prognosis? @ -No Drug Therapy requiring intensive monitoring for toxicity (Heparin, Nitro, Insulin, Cardizem)? @ -No Were any procedures done? @ -No Diagnosis/symptom? @ -Chest pain Acute, or Chronic, or Acute on Chronic? @ -Acute Uncomplicated (without systemic symptoms) or Complicated (systemic symptoms)? @ -Complicated Side effects of treatment? @ -No Exacerbation, Progression, or Severe Exacerbation? @ -No Poses a threat to life or bodily function? How? (Chest pain, [place], [place], pneumonia, PE, COPD, DKA, ARF, appy, cholecystitis, CVA, Diverticulitis, Homicidal, Suicidal, threat to staff... and all critical care pts) @ -Yes Disposition Clinical Impression: Chest pain Disposition: ADMITTED IP TO THIS HOSP Condition: Fair Time of Disposition: 02:37
[2022-12-29 01:21] LABS: Basophils % (A) 0 %; Eosinophils # (A) 0.1 k/uL (0-0.7); Eosinophils % (A) 1 %; HCT 39.6 % (34.0-46.0); HGB 12.7 gm/dL (11.4-16.0); Lymphocytes # (A) 0.7 k/uL (1.0-4.8); Lymphocytes % (A) 11 %; MCH 30.3 pg (25.0-35.0); MCV 94.7 fL (80.0-100.0); Mean Platelet Volume 7.2; Monocytes # (A) 0.2 k/uL (0-1.0); Monocytes % (A) 3 %; Neutrophils # (A) 5.9 k/uL (1.3-7.7); Neutrophils % (A) 84 %; Platelet Count 230 k/uL (150-450); RBC 4.18 m/uL (3.80-5.40); RDW 14.1 % (11.5-15.5)
[2022-12-29 01:29] LABS: Albumin 3.9 g/dL (3.5-5.0); Calcium 8.6 mg/dL (8.4-10.2); Magnesium 2.1 mg/dL (1.6-2.3); Potassium 4.2 mmol/L (3.5-5.1); Total Bilirubin 0.2 mg/dL (0.2-1.3); Total Protein 7.1 g/dL (6.3-8.2)
[2022-12-29 01:34] LABS: Partial Thromboplastin Time 22.4 sec (22.0-30.0); Prothrombin Time 10.4 sec (9.0-12.0)
[2022-12-29 02:13] LABS: Appearance,Urine Clear (Clear); Bacteria,Urine Rare /hpf; Bilirubin,Urine Negative (Negative); Blood,Urine Negative (Negative); Color,Urine Light Yellow; Glucose,Urine (UA) Negative (Negative); Ketones,Urine Negative (Negative); Leukocyte Esterase,Urine Small (Negative); Mucus,Urine Rare /hpf; Nitrite,Urine Negative (Negative); Protein,Urine Negative (Negative); RBC,Urine 1 /hpf (0-5); Squamous Epithelial Cell,Urine 1 /hpf (0-4); Urobilinogen,Urine <2.0 mg/dL (<2.0); WBC,Urine 4 /hpf (0-5)
--- NOTE | 2022-12-29 02:17 | XR ---
EXAM: XR Chest, 2 Views CLINICAL HISTORY: ITS.REASON XR Reason: Chest Pain TECHNIQUE: Frontal and lateral views of the chest. COMPARISON: No relevant prior studies available. FINDINGS: Lungs: No consolidation or mass. Slightly prominent interstitial markings. Pleural space: No effusion. Heart: cardiomegaly. Bones/joints: No acute findings. IMPRESSION: Slightly prominent interstitial markings.
[2022-12-29] MEDS ORDERED: NALOXONE 0.4 MG/ML 1 ML VIAL IV PRN (02:36)
[2022-12-29 07:29] VITALS: RESP 18
[2022-12-29] MEDS ORDERED: DOBUTamine DRIP for NUC MED 500 MG in DEXTROSE/WATER 1 250ML.BAG IV PRN (08:27)
[2022-12-29] MEDS ORDERED: amLODIPine 5 MG TAB PO SCH (09:00)
[2022-12-29] MEDS ORDERED: DOBUTamine DRIP for NUC MED 500 MG/250 ML BAG IV ONE (10:00)
--- NOTE | 2022-12-29 10:01 | P.CRDCN ---
History of Present Illness History of present illness: HISTORY OF PRESENT ILLNESS: This is a 77-year-old female with a past medical history significant for hypertension, hyperlipidemia, hypothyroidism, anxiety, bipolar disorder, and depression. Patient follows in the office with Dr. Land but has not been seen in the office since May 2020. We have been asked to see the patient in consultation for chest pain. Patient examined at the bedside. Patient states that she underwent surgery on her left hand yesterday. There is currently an Koby wrap noted. She states that last night she developed chest pain the middle of her chest. She states the pain radiated across her chest. She also reports shortness of breath. She does have significant tenderness upon the patient of chest wall. * EKG reveals sinus mechanism with no signs of acute ischemia * Chest xray slight prominent interstitial markings * Laboratory data: WBC 7.0. Hemoglobin 12.7. Platelet count 230. Sodium 139. Potassium 4.2. BUN 18. Creatinine 0.82. Magnesium 2.1. Troponin negative 3 * Current home cardiac medications include aspirin 81 mg daily, simvastatin 20 mg at night, amlodipine 5 mg daily * Most recent echocardiogram obtained in September 2015 revealed ejection fraction 60%, mild MR, mild TR REVIEW OF SYSTEMS: At the time of my exam: CONSTITUTIONAL: Denies fever or chills. HEENT: Denies blurred vision, vision changes, or eye pain. Denies hemoptysis CARDIOVASCULAR: Denies chest pain. Denies orthopnea. Denies PND. Denies palpitations RESPIRATORY: Denies shortness of breath. GASTROINTESTINAL: Denies abdominal pain. Denies nausea or vomiting. HEMATOLOGIC: Denies bleeding disorders. GENITOURINARY: Denies any blood in urine. SKIN: Denies pruitis. Denies rash. PHYSICAL EXAM: VITAL SIGNS: Reviewed. GENERAL: Well-developed in no acute distress. HEENT: Head is normocephalic. Pupils are equal, round. Sclerae anicteric. Mucous membranes of the mouth are moist. Neck supple. No JVD or thyromegaly LUNGS: Respirations even and unlabored. Lungs essentially clear to auscultation bilaterally. HEART: Regular rate and rhythm. S1 and S2 heard. ABDOMEN: Soft. Nondistended. Nontender. EXTREMITIES: Normal range of motion. No clubbing or cyanosis. Peripheral pulses intact. No lower extremity edema NEUROLOGIC: Awake and alert. Oriented x 3. ASSESSMENT: Chest pain, troponins negative 3 Hypertension Hyperlipidemia Hypothyroidism Anxiety Bipolar disorder Depression Recent surgery to left hand PLAN: An acute coronary and has been ruled out Obtain 2-D echo to assess cardiac structure and function Resume home cardiac medications Patient to undergo dobutamine stress test today If negative, she may be discharged home from a cardiac standpoint Nurse practitioner note has been reviewed by physician. Signing provider agrees with the documented findings, assessment, and plan of care. Past Medical History Past Medical History: GERD/Reflux, Hyperlipidemia, Hypertension, Osteoarthritis (OA), Thyroid Disorder Additional Past Medical History / Comment(s): CONSTIPATION, HAS TROUBLE SWALLOWING AT TIMES" History of Any Multi-Drug Resistant Organisms: None Reported Past Surgical History: Hysterectomy, Joint Replacement, Tubal Ligation Additional Past Surgical History / Comment(s): CATARACT -BILATERAL , RIGHT SHOULDER, TOTAL LEFT KNEE. Esophageal opening surgery, Past Anesthesia/Blood Transfusion Reactions: No Reported Reaction Past Psychological History: Anxiety, Bipolar, Depression Past Alcohol Use History: None Reported - Past Family History Mother Family Medical History: Congestive Heart Failure (CHF), CVA/TIA Brother(s) Family Medical History: Cancer Additional Family Medical History / Comment(s): THROAT CANCER Medications and Allergies Home Medications Medication Instructions Recorded Confirmed Type Aspirin 81 mg PO HS 10/22/15 12/29/22 History Simvastatin [Zocor] 20 mg PO HS 10/22/15 12/29/22 History Vitamin E (Dl,Tocopheryl Acet) 400 unit PO HS 10/22/15 12/29/22 History [Vitamin E (400 Iu = 180 mg)] amLODIPine BESYLATE [Norvasc] 5 mg PO DAILY 10/22/15 12/29/22 History Levothyroxine Sodium [Synthroid] 88 mcg PO DAILY 30 Days #30 tab 10/01/18 12/29/22 Rx Ascorbic Acid [Vitamin C] 500 mg PO DAILY 04/19/19 12/29/22 History LORazepam [Ativan] 1 mg PO DAILY PRN 04/19/19 12/29/22 History Pramipexole [Mirapex] 0.5 mg PO HS 04/19/19 12/29/22 History Pramipexole [Mirapex] 1 mg PO DAILY 04/19/19 12/29/22 History Venlafaxine HCl ER [Effexor XR] 150 mg PO DAILY 04/19/19 12/29/22 History traZODone HCL [Desyrel] 150 mg PO HS 09/25/19 12/29/22 History Venlafaxine HCl ER [Effexor Xr] 75 mg PO DAILY 03/10/21 12/29/22 History Vitamin B Complex 1 cap PO DAILY 03/10/21 12/29/22 History Vitamin C/Biotin [Hair, Skin and 1 tab PO DAILY 03/10/21 12/29/22 History Nails] lamoTRIgine [LaMICtal] 200 mg PO BID 03/10/21 12/29/22 History Deutetrabenazine [Austedo] 12 mg PO BID 12/29/22 12/29/22 History HYDROcodone/APAP 5-325MG [[place] 1 tab PO DIRECTED PRN 12/29/22 12/29/22 History 5-325] LORazepam [Ativan] 1 mg PO BID 12/29/22 12/29/22 History Omeprazole [PriLOSEC] 40 mg PO DAILY 12/29/22 12/29/22 History Oxybutynin Chloride [oxyBUTYnin 10 mg PO HS 12/29/22 12/29/22 History chloride ER] Allergies Allergy/AdvReac Type Severity Reaction Status Date / Time aripiprazole [From [facility]] AdvReac Nausea & Verified 12/29/22 07:21 Vomiting codeine AdvReac SEVERE Verified 12/29/22 07:21 VOMITNG, PASSED OUT solifenacin AdvReac Nausea & Verified 12/29/22 07:21 Vomiting Physical Exam Vitals: Vital Signs Temp Pulse Resp BP Pulse Ox 12/29/22 07:27 97.8 F 70 18 129/76 95 12/29/22 05:00 73 16 121/79 93 L 12/29/22 02:05 80 18 145/80 96 12/29/22 00:49 99 18 96 12/29/22 00:33 98.1 F 94 20 138/83 95 Intake and Output 12/28/22 12/29/22 12/29/22 22:59 06:59 14:59 Other: Weight 81.647 kg Results 12/29/22 01:08 12/29/22 01:08 Cardiac Enzymes 12/29/22 12/29/22 12/29/22 Range/Units 01:08 01:08 05:07 AST 27 (14-36) U/L Troponin I <0.012 <0.012 (0.000-0.034) ng/mL Coagulation 12/29/22 Range/Units 01:08 PT 10.4 (9.0-12.0) sec APTT 22.4 (22.0-30.0) sec CBC 12/29/22 Range/Units 01:08 WBC 7.0 (3.8-10.6) k/uL RBC 4.18 (3.80-5.40) m/uL Hgb 12.7 (11.4-16.0) gm/dL Hct 39.6 (34.0-46.0) % Plt Count 230 (150-450) k/uL Comprehensive Metabolic Panel 12/29/22 Range/Units 01:08 Sodium 139 (137-145) mmol/L Potassium 4.2 (3.5-5.1) mmol/L Chloride 102 (98-107) mmol/L Carbon Dioxide 26 (22-30) mmol/L BUN 18 H (7-17) mg/dL Creatinine 0.82 (0.52-1.04) mg/dL Glucose 152 H (74-99) mg/dL Calcium 8.6 (8.4-10.2) mg/dL AST 27 (14-36) U/L ALT 28 (4-34) U/L Alkaline Phosphatase 79 (38-126) U/L Total Protein 7.1 (6.3-8.2) g/dL Albumin 3.9 (3.5-5.0) g/dL Current Medications Generic Name Dose Route Start Last Admin Trade Name Freq PRN Reason Stop Dose Admin Naloxone HCl 0.2 mg 12/29/22 02:36 Naloxone 0.4 Mg/Ml 1 Ml Vial IV Q2M PRN Opioid Reversal Intake and Output 12/28/22 12/29/22 12/29/22 22:59 06:59 14:59 Other: Weight 81.647 kg 12/29/22 01:08 12/29/22 01:08
[2022-12-29] MEDS ORDERED: PRAMIPEXOLE 1 MG TAB PO SCH (10:15)
[2022-12-29] MEDS ORDERED: NON FORMULARY DRUG (Vitamin B Complex [Vitamin B Complex] 1 EACH Capsule) PO SCH (10:15)
[2022-12-29] MEDS ORDERED: VENLAFAXINE HCL ER 150 MG CAP PO SCH (10:15)
[2022-12-29] MEDS ORDERED: NON FORMULARY DRUG (Vitamin C/Biotin [Hair, Skin And Nails Chew] 1 EACH Tab.Chew) PO SCH (10:15)
[2022-12-29] MEDS ORDERED: ASCORBIC ACID 500 MG TAB PO SCH (11:00)
[2022-12-29] MEDS ORDERED: PANTOPRAZOLE 40 MG TABLET PO SCH (11:00)
[2022-12-29] MEDS ORDERED: lamoTRIgine 100 MG TAB PO SCH (11:00)
[2022-12-29] MEDS ORDERED: DEUTETRABENAZINE 12 MG PO SCH (11:00)
[2022-12-29] MEDS ORDERED: VENLAFAXINE HCL ER 75 MG CAP PO SCH (11:00)
[2022-12-29] MEDS ORDERED: LEVOTHYROXINE 88 MCG TAB PO SCH (11:00)
[2022-12-29] MEDS ORDERED: LORazepam 1 MG TAB PO SCH (11:00)
[2022-12-29 14:16] VITALS: BP 122/76; PULSE 76; TEMP 98.5
--- NOTE | 2022-12-29 14:39 | CA ---
Dobutamine Stress Echocardiogram Report Yaritza Randall Age: 77 Gender: F : 1945 Exam Date: 12/29/2022 10:04 Exam Location: [facility] Ordering Physician: Ting Mosher Referring Physician: [id number] Manager Collection: Staci Tim RDCS Technologist: Ht (in): 60 Wt (lb): 180 Procedure CPT: Indication: CP ICD-9 Codes: Rhythm: Patient History: Atypical angina, Hyperlipidemia, Family history, Dyspnea/SOB Cardiac Medications: Medications in past 24 hours: Contrast: Total Dose (mL): Stress Results Protocol: Dobutamine Peak Dose (???g/kg/min): 40 Duration (min:sec): Atropine:(mg) Target HR: 123 Double Product: Resting HR: 73 Resting BP: 148 / 95 Peak HR: 121 Peak BP: / Max Predicted HR: 145 83 % Max Predicted HR Stress Summary: BP Response: Reason for Termination: DIRECTED PER ROLLER Cardiac Symptoms: JAW PAIN ECG Analysis Resting EKG: Stress EKG: Arrhythmia: Echo Analysis Base Echo Analysis: Low Echo Anaylsis: Peak Echo Analysis: Recovery Echo: MEASUREMENTS (Male/Female) Normal Values CONCLUSIONS Dobutamine stress echo No ECG evidence for ischemia No arrhythmias No echocardiographic evidence for ischemia Excellent augmentation overall LV contractility without June 26 wall motion abnormalities Impression Normal dobutamine stress echo Dr. Kvng Lane MD (Electronically Signed) Final Date: 29 Dec 2022 14:39
--- NOTE | 2022-12-29 16:10 | P.HPIM ---
History of Present Illness H&P Date: 12/29/22 Chief Complaint: Chest pain This is a pleasant 77-year-old patient, who follows Dr. Alvarez. Chronic stable medical conditions include GERD, hypertension, hyperlipidemia, osteoporosis, hypothyroid chronic constipation. Bipolar. Patient presents with central chest pain. More like a pressure. Did not radiate. Associated with dizziness lightheadedness some shortness of breath. Maybe lasted for about an hour. No prior cardiac history. No precipitating or relieving factors. Admitted with unstable angina Review of systems: GEN.: Tired EYES: None HEENT: None NECK: None RESPIRATORY: None CARDIOVASCULAR: As above] GASTROINTESTINAL: None GENITOURINARY: None MUSCULOSKELETAL: Joint pains LYMPHATICS: None HEMATOLOGICAL: None PSYCHIATRY: None NEUROLOGICAL: None Past medical history to include: GERD, hyperlipidemia, hypertension, prostatitis, hypothyroid, bipolar, osteoarthritis Social history: . No smoking. No alcohol. Marijuana in the past. Physical examination: VITAL SIGNS: 97.8, 70, 18, 129/76, 95% room air GENERAL: BMI 35.2, declining in bed awake comfortable. EYES: Pupils equal. Conjunctiva normal. HEENT: External appearance of nose and ears normal, oral cavity grossly normal. NECK: JVD not raised; masses not palpable. HEART: First and second heart sounds are normal; no edema. LUNGS: Respiratory rate normal; clear to auscultation. ABDOMEN: Soft, nontender, liver spleen not palpable, no masses palpable. PSYCH: Alert and oriented x3; mood and affect normal. MUSCULOSKELETAL:No Clubbing/cyanosis;muscles-grossly intact. OA NEUROLOGICAL: Cranial nerves grossly intact; no facial asymmetry, power and sensation grossly intact. LYMPHATICS: No lymph nodes palpable in the axilla and neck INVESTIGATIONS, reviewed in the clinical context: White count 7 hemoglobin 12.7 platelets 2:30 sodium 139 potassium 4.2 creatinine 0.82 BUN 18 Troponin I 3 less than 0.012 EKG tracing personally reviewed by me-normal sinus rhythm Chest x-ray film personally reviewed by me-underpenetration versus prominent interstitial marking possibly Assessment and plan: -Anterior chest wall pain. Could be unstable angina. Aspirin. Cardiology consulted. Stress test ordered. -Obesity BMI 35.2 Weight loss measures -Restless leg syndrome Mirapex -Essential hypertension Amlodipine 5 mg -Urine stress incontinence Oxybutynin 10 mg daily at bedtime -GERD Prilosec -Hypothyroid Synthroid 88 g a day -Hypothyroid Zocor 20 mg daily at bedtime -Bipolar Effexor XL, Desyrel, Ativan, Lamictal, Care was discussed with the patient. Stress test was ordered. Past Medical History Past Medical History: GERD/Reflux, Hyperlipidemia, Hypertension, Osteoarthritis (OA), Thyroid Disorder Additional Past Medical History / Comment(s): CONSTIPATION, HAS TROUBLE SWALLOWING AT TIMES" History of Any Multi-Drug Resistant Organisms: None Reported Past Surgical History: Hysterectomy, Joint Replacement, Tubal Ligation Additional Past Surgical History / Comment(s): CATARACT -BILATERAL , RIGHT SHOULDER, TOTAL LEFT KNEE. Esophageal opening surgery, Past Anesthesia/Blood Transfusion Reactions: No Reported Reaction Past Psychological History: Anxiety, Bipolar, Depression Past Alcohol Use History: None Reported - Past Family History Mother Family Medical History: Congestive Heart Failure (CHF), CVA/TIA Brother(s) Family Medical History: Cancer Additional Family Medical History / Comment(s): THROAT CANCER Medications and Allergies Home Medications Medication Instructions Recorded Confirmed Type Aspirin 81 mg PO HS 10/22/15 12/29/22 History Simvastatin [Zocor] 20 mg PO HS 10/22/15 12/29/22 History Vitamin E (Dl,Tocopheryl Acet) 400 unit PO HS 10/22/15 12/29/22 History [Vitamin E (400 Iu = 180 mg)] amLODIPine BESYLATE [Norvasc] 5 mg PO DAILY 10/22/15 12/29/22 History Levothyroxine Sodium [Synthroid] 88 mcg PO DAILY 30 Days #30 tab 10/01/18 12/29/22 Rx Ascorbic Acid [Vitamin C] 500 mg PO DAILY 04/19/19 12/29/22 History LORazepam [Ativan] 1 mg PO DAILY PRN 04/19/19 12/29/22 History Pramipexole [Mirapex] 0.5 mg PO HS 04/19/19 12/29/22 History Pramipexole [Mirapex] 1 mg PO DAILY 04/19/19 12/29/22 History Venlafaxine HCl ER [Effexor XR] 150 mg PO DAILY 04/19/19 12/29/22 History traZODone HCL [Desyrel] 150 mg PO HS 09/25/19 12/29/22 History Venlafaxine HCl ER [Effexor XR] 75 mg PO DAILY 03/10/21 12/29/22 History Vitamin B Complex 1 cap PO DAILY 03/10/21 12/29/22 History Vitamin C/Biotin [Hair, Skin and 1 tab PO DAILY 03/10/21 12/29/22 History Nails Chew] lamoTRIgine [LaMICtal] 200 mg PO BID 03/10/21 12/29/22 History Deutetrabenazine [Austedo] 12 mg PO BID 12/29/22 12/29/22 History HYDROcodone/APAP 5-325MG [[place] 1 tab PO Q4H PRN 12/29/22 12/29/22 History 5-325] LORazepam [Ativan] 1 mg PO BID 12/29/22 12/29/22 History Omeprazole [PriLOSEC] 40 mg PO DAILY 12/29/22 12/29/22 History Oxybutynin Chloride [oxyBUTYnin 10 mg PO HS 12/29/22 12/29/22 History chloride ER] Allergies Allergy/AdvReac Type Severity Reaction Status Date / Time aripiprazole [From [facility]] AdvReac Nausea & Verified 12/29/22 07:21 Vomiting codeine AdvReac SEVERE Verified 12/29/22 07:21 VOMITNG, PASSED OUT solifenacin AdvReac Nausea & Verified 12/29/22 07:21 Vomiting Physical Exam Vitals: Vital Signs Temp Pulse Pulse Resp BP BP Pulse Ox 12/29/22 08:12 97.9 F 74 18 150/89 74 L 12/29/22 07:27 97.8 F 70 18 129/76 95 12/29/22 05:00 73 16 121/79 93 L 12/29/22 02:05 80 18 145/80 96 12/29/22 00:49 99 18 96 12/29/22 00:33 98.1 F 94 20 138/83 95 Intake and Output 12/28/22 12/29/22 12/29/22 22:59 06:59 14:59 Other: Weight 81.647 kg Results CBC & Chem 7: 12/29/22 01:08 12/29/22 01:08 Labs: Abnormal Lab Results - Last 24 Hours (Table) 12/29/22 12/29/22 12/29/22 Range/Units 01:08 01:08 02:05 Lymphocytes # 0.7 L (1.0-4.8) k/uL BUN 18 H (7-17) mg/dL Glucose 152 H (74-99) mg/dL Ur Leukocyte Esterase Small H (Negative) Urine Bacteria Rare H (None) /hpf Urine Mucus Rare H (None) /hpf
--- NOTE | 2022-12-29 18:27 | P.DS ---
Providers Date of admission: 12/29/22 02:27 Expected date of discharge: 12/29/22 Attending physician: Fernando Carlos Consults: 12/29/22 02:36 Consult Physician Urgent Consulting Provider: [facility] Consult Reason/Comments: chest pain Do you want consulting provider notified?: Yes, Notify in am Primary care physician: Luis Brighton Hospital Course: Chief Complaint: Chest pain This is a pleasant 77-year-old patient, who follows Dr. Alvarez. Chronic stable medical conditions include GERD, hypertension, hyperlipidemia, osteoporosis, hyp othyroid chronic constipation. Bipolar. Patient presents with central chest pain. More like a pressure. Did not radiate. Associated with dizziness lightheadedness some shortness of breath. Maybe lasted for about an hour. No prior cardiac history. No precipitating or relieving factors. Admitted with unstable angina Patient underwent a dobutamine stress echocardiogram. It was normal. Cleared by currently for discharge Past medical history to include: GERD, hyperlipidemia, hypertension, prostatitis, hypothyroid, bipolar, osteoarthritis Social history: . No smoking. No alcohol. Marijuana in the past. Physical examination: VITAL SIGNS: 97.8, 70, 18, 129/76, 95% room air GENERAL: BMI 35.2, declining in bed awake comfortable. EYES: Pupils equal. Conjunctiva normal. HEENT: External appearance of nose and ears normal, oral cavity grossly normal. NECK: JVD not raised; masses not palpable. HEART: First and second heart sounds are normal; no edema. LUNGS: Respiratory rate normal; clear to auscultation. ABDOMEN: Soft, nontender, liver spleen not palpable, no masses palpable. PSYCH: Alert and oriented x3; mood and affect normal. MUSCULOSKELETAL:No Clubbing/cyanosis;muscles-grossly intact. OA NEUROLOGICAL: Cranial nerves grossly intact; no facial asymmetry, power and sensation grossly intact. LYMPHATICS: No lymph nodes palpable in the axilla and neck INVESTIGATIONS, reviewed in the clinical context: Dobutamine stress echocardiogram: Normal White count 7 hemoglobin 12.7 platelets 2:30 sodium 139 potassium 4.2 creatinine 0.82 BUN 18 Troponin I 3 less than 0.012 EKG tracing personally reviewed by me-normal sinus rhythm Chest x-ray film personally reviewed by me-underpenetration versus prominent interstitial marking possibly Assessment and plan: -Anterior chest wall pain. Possibly musculoskeletal Aspirin. Seen by Dr. Kvng Mitchell. Dobutamine stress echocardiogram negative -Obesity BMI 35.2 Weight loss measures -Restless leg syndrome Mirapex -Essential hypertension Amlodipine 5 mg -Urine stress incontinence Oxybutynin 10 mg daily at bedtime -GERD Prilosec -Hypothyroid Synthroid 88 g a day -Hypothyroid Zocor 20 mg daily at bedtime -Bipolar Effexor XL, Desyrel, Ativan, Lamictal, Disposition: Home Plan - Discharge Summary New Discharge Prescriptions: Continue Vitamin E (Dl,Tocopheryl Acet) [Vitamin E (400 Iu = 180 mg)] 400 unit PO HS Aspirin 81 mg PO HS Simvastatin [Zocor] 20 mg PO HS amLODIPine BESYLATE [Norvasc] 5 mg PO DAILY Levothyroxine Sodium [Synthroid] 88 mcg PO DAILY 30 Days #30 tab Ascorbic Acid [Vitamin C] 500 mg PO DAILY Pramipexole [Mirapex] 0.5 mg PO HS Pramipexole [Mirapex] 1 mg PO DAILY LORazepam [Ativan] 1 mg PO DAILY PRN PRN Reason: Anxiety Venlafaxine HCl ER [Effexor XR] 150 mg PO DAILY traZODone HCL [Desyrel] 150 mg PO HS Vitamin C/Biotin [Hair, Skin and Nails Chew] 1 tab PO DAILY Venlafaxine HCl ER [Effexor XR] 75 mg PO DAILY lamoTRIgine [LaMICtal] 200 mg PO BID Oxybutynin Chloride [oxyBUTYnin chloride ER] 10 mg PO HS LORazepam [Ativan] 1 mg PO BID Deutetrabenazine [Austedo] 12 mg PO BID HYDROcodone/APAP 5-325MG [[place] 5-325] 1 tab PO Q4H PRN PRN Reason: Pain Vitamin B Complex 1 cap PO DAILY Omeprazole [PriLOSEC] 40 mg PO DAILY Discharge Medication List Aspirin 81 mg PO HS 10/22/15 [History] Simvastatin [Zocor] 20 mg PO HS 10/22/15 [History] Vitamin E (Dl,Tocopheryl Acet) [Vitamin E (400 Iu = 180 mg)] 400 unit PO HS 10/22/15 [History] amLODIPine BESYLATE [Norvasc] 5 mg PO DAILY 10/22/15 [History] Levothyroxine Sodium [Synthroid] 88 mcg PO DAILY 30 Days #30 tab 10/01/18 [Rx] Ascorbic Acid [Vitamin C] 500 mg PO DAILY 04/19/19 [History] LORazepam [Ativan] 1 mg PO DAILY PRN 04/19/19 [History] Pramipexole [Mirapex] 0.5 mg PO HS 04/19/19 [History] Pramipexole [Mirapex] 1 mg PO DAILY 04/19/19 [History] Venlafaxine HCl ER [Effexor XR] 150 mg PO DAILY 04/19/19 [History] traZODone HCL [Desyrel] 150 mg PO HS 09/25/19 [History] Venlafaxine HCl ER [Effexor XR] 75 mg PO DAILY 03/10/21 [History] Vitamin B Complex 1 cap PO DAILY 03/10/21 [History] Vitamin C/Biotin [Hair, Skin and Nails Chew] 1 tab PO DAILY 03/10/21 [History] lamoTRIgine [LaMICtal] 200 mg PO BID 03/10/21 [History] Deutetrabenazine [Austedo] 12 mg PO BID 12/29/22 [History] HYDROcodone/APAP 5-325MG [[place] 5-325] 1 tab PO Q4H PRN 12/29/22 [History] LORazepam [Ativan] 1 mg PO BID 12/29/22 [History] Omeprazole [PriLOSEC] 40 mg PO DAILY 12/29/22 [History] Oxybutynin Chloride [oxyBUTYnin chloride ER] 10 mg PO HS 12/29/22 [History] Follow up Appointment(s)/Referral(s): Luis Alvarez DO [Primary Care Provider] - 1-2 days Sourav Land MD [STAFF PHYSICIAN] - 01/23/23 10:15 am [facility] Visiting Nurse, [NON-STAFF] - 1 Week Patient Instructions/Handouts: Chest Pain (DC) Discharge Disposition: HOME WITH HOME HEALTH SERVICES
--- NOTE | 2022-12-29 19:02 | CA ---
Transthoracic Echo Report Name: Yaritza Randall Age: 77 Gender: F : 1945 Exam Date: 12/29/2022 10:24 Exam Location: [place] [facility] Ht (in): 60 Wt (lb): 180 Ordering Physician: Ting Mosher Attending/Referring Phys: [id number], Vidhi Director Of Video Analytics Staci Tim RDCS Procedure CPT: Indications: LV function Cardiac Hx: Technical Quality: Fair Contrast 1: Total Dose (mL): Contrast 2: Total Dose (mL): MEASUREMENTS (Male / Female) Normal Values 2D ECHO LV Diastolic Diameter PLAX 3.6 cm 4.2 - 5.9 / 3.9 - 5.3 cm LV Systolic Diameter PLAX 2.1 cm IVS Diastolic Thickness 1.2 cm 0.6 - 1.0 / 0.6 - 0.9 cm LVPW Diastolic Thickness 1.1 cm 0.6 - 1.0 / 0.6 - 0.9 cm LV Relative Wall Thickness 0.6 RV Internal Dim ED PLAX 2.9 cm LA Volume 56.4 cm??? 18 - 58 / 22 - 52 cm??? M-MODE Aortic Root Diameter MM 3.3 cm LA Systolic Diameter MM 2.8 cm LA Ao Ratio MM 0.8 AV Cusp Separation MM 1.4 cm DOPPLER AV Peak Velocity 195.3 cm/s AV Peak Gradient 15.3 mmHg AV Mean Velocity 122.5 cm/s AV Mean Gradient 7.1 mmHg AV Velocity Time Integral 36.8 cm LVOT Peak Velocity 139.8 cm/s LVOT Peak Gradient 7.8 mmHg LVOT Velocity Time Integral 29.4 cm MV Area PHT 3.4 cm??? Mitral E Point Velocity 130.2 cm/s Mitral A Point Velocity 152.8 cm/s Mitral E to A Ratio 0.9 MV Deceleration Time 224.1 ms MV E' Velocity 5.3 cm/s Mitral E to MV E' Ratio 24.7 TR Peak Velocity 278.1 cm/s TR Peak Gradient 30.9 mmHg Right Ventricular Systolic Press 33.5 mmHg FINDINGS Left Ventricle Mildly increased left ventricular wall thickness. Normal left ventricular systolic function with no obvious regional wall motion abnormalities. Left ventricular cavity size normal. Left ventricular ejection fraction is estimated at 55-60 %. Right Ventricle Normal right ventricular size and function. Right ventricular systolic pressure within normal limits. Right Atrium Normal right atrial size. Left Atrium Mildly increased left atrial volume. Mitral Valve Structurally normal mitral valve. Mild mitral annular calcification. Mild mitral stenosis. Aortic Valve No aortic valve stenosis or regurgitation. Tricuspid Valve Mild tricuspid regurgitation. Pulmonic Valve Trace pulmonic regurgitation. Pericardium No pericardial effusion. Aorta Normal size aortic root and proximal ascending aorta. CONCLUSIONS Left ventricular hypertrophy with preserved systolic function Previewed by: Dr. Kvng Lane MD (Electronically Signed) Final Date: 29 Dec 2022 19:01
[2022-12-29] MEDS ORDERED: ATORVASTATIN 10 MG TAB PO SCH (21:00)
[2022-12-29] MEDS ORDERED: VITAMIN E (DL,TOCOPHERYL ACET) 400 UNIT (180 MG) CAP PO SCH (21:00)
[2022-12-29] MEDS ORDERED: ASPIRIN 81 MG PO SCH (21:00)
[2022-12-29] MEDS ORDERED: OXYBUTYNIN 10 MG TAB.ER.24 PO SCH (21:00)
[2022-12-29] MEDS ORDERED: PRAMIPEXOLE 0.5 MG TAB PO SCH (21:00)
[2022-12-29] MEDS ORDERED: traZODone HCL 50 MG TAB PO SCH (21:00)
== END 2022-12-29 17:10 | disposition home health service (06) ==
LOC: EC 00:31 → 6NMEDSUR 02:27
PROVIDERS: ADMIT Hospitalist; ATTEND Hospitalist
DX: R07.89 Other chest pain (principal); E66.9 Obesity, unspecified; F41.9 Anxiety disorder, unspecified; F31.9 Bipolar disorder, unspecified; F32.A Depression, unspecified; K21.9 Gastro-esophageal reflux disease without esophagitis; I11.9 Hypertensive heart disease without heart failure; E78.5 Hyperlipidemia, unspecified; I05.0 Rheumatic mitral stenosis; I07.1 Rheumatic tricuspid insufficiency; I37.1 Nonrheumatic pulmonary valve insufficiency; E03.9 Hypothyroidism, unspecified; K59.09 Other constipation; M81.0 Age-related osteoporosis without current pathological fracture; G25.81 Restless legs syndrome; N39.3 Stress incontinence (female) (male); Z98.51 Tubal ligation status; Z90.710 Acquired absence of both cervix and uterus; Z98.42 Cataract extraction status, left eye; Z98.41 Cataract extraction status, right eye; Z79.82 Long term (current) use of aspirin; Z79.899 Other long term (current) drug therapy; Z79.890 Hormone replacement therapy; Z88.5 Allergy status to narcotic agent; Z80.8 Family history of malignant neoplasm of other organs or systems; Z82.49 Family history of ischemic heart disease and other diseases of the circulatory system; Z82.3 Family history of stroke; Z68.35 Body mass index [BMI] 35.0-35.9, adult
CPT/HCPCS: 96360; 96361; 36415; 93005; 93306; 93351; 97162; 97166; 80053; 83735; 84484; 85025; 85610; 85730; 81001; 71046; G0378; J1250

== ENCOUNTER → 2023-07-07 | Outpatient (CLI) | payer MEDICARE, BC ==
--- NOTE | 2023-07-07 11:25 | MR ---
EXAMINATION TYPE: MR pituitary wo/w con DATE OF EXAM: 07/07/2023 COMPARISON: None HISTORY: Tremors, weakness, macular degeneration. TECHNIQUE: Multiplanar, multisequence images of the sella turcica is performed without and with IV contrast, uti lizing 10 mL intravenous Gadavist . FINDINGS: There is reduced enhancement involving the right portion of the pituitary gland measuring 3 mm too small to characterize tiny microadenoma within the differential diagnosis. There does appear to be pituitary stalk deviation from right to left. Motion artifact as no definite cerebellopontine angle mass. Visualized orbits are symmetric.. Midline structures demonstrate normal morphology. The craniocervical junction appears within normal limits. Post contrast images demonstrate no abnormal enhancement. The dural venous sinuses appear pa tent. The visualized sinuses are clear and the globes are intact. IMPRESSION: 1. Reduced enhancement involving the pituitary gland on the right with slight stalk deviation from ri ght to left. Findings suspicious for small microadenoma.
== END | disposition home or self-care (01) ==
LOC: RADMRIMAIN 09:02
PROVIDERS: ATTEND Ophthalmology
DX: H53.489 Generalized contraction of visual field, unspecified eye (principal); H53.2 Diplopia; I10 Essential (primary) hypertension
CPT/HCPCS: 70553; A9585

== ENCOUNTER → 2023-07-10 | Outpatient (CLI) | payer MEDICARE, BC ==
--- NOTE | 2023-07-10 10:42 | MR ---
EXAMINATION TYPE: MR brain wo/w con DATE OF EXAM: 07/10/2023 COMPARISON: MRI 11/12/2018 HISTORY: Diplopia, dizziness, tremors TECHNIQUE: Multiplanar, multisequence images of the brain and brainstem is performed without and with IV contras t, utilizing 8 mL intravenous Gadavist . FINDINGS: Diffusion weighted images demonstrate moderate generalized degenerative change. Focal and d iffuse areas of abnormal signal involving the white matter most likely microvascular ischemia. Promin ent CSF spaces along the bilateral parietal lobes favoring atrophy over chronic subdural hygroma or h ematoma. Findings stable from prior MRI. Midline structures demonstrate normal morphology. The craniocervical junction appears within normal limits. Post contrast images demonstrate no abnormal enhancement. The dural venous sinuses appear pa tent. The visualized sinuses are clear and the globes are intact. Hyperostosis of the calvarium. IMPRESSION: 1. Moderate degenerative and remote ischemic white matter disease.
== END | disposition home or self-care (01) ==
LOC: RADMRIMAIN 09:18
PROVIDERS: ATTEND Ophthalmology
DX: G31.9 Degenerative disease of nervous system, unspecified (principal); H53.2 Diplopia; R90.82 White matter disease, unspecified
CPT/HCPCS: 70553; A9585

== ENCOUNTER 2023-09-15 05:35 | Day surgery (SDC) | payer BC, MEDICARE ==
[2023-09-08 16:04] VITALS: BMI 33.2
[2023-09-15] MEDS: LACTATED RINGERS 1,000 ML IV SCH (06:42)
[2023-09-15] MEDS: fentaNYL (PF) 50 MCG/ML 2 ML AMP IV PRN (06:57)
[2023-09-15] MEDS: MIDAZOLAM 2 MG/2 ML VIAL IV PRN (06:57)
[2023-09-15] MEDS: ONDANSETRON 4 MG/2 ML VIAL IVP ONE (07:06)
[2023-09-15] MEDS: DEXAMETHASONE SOD PHOSPHATE 4 MG/ML 1 ML VIAL IV ONE (07:06)
[2023-09-15] MEDS ORDERED: PROPOFOL 10 MG/ML 20 ML VIAL IV ONE (07:25)
[2023-09-15] MEDS ORDERED: LIDOCAINE 1% INJ 10MG/ML (20 ML MDV) ONE (07:25)
[2023-09-15] MEDS ORDERED: SODIUM CHLORIDE 0.9% (PF) 10 ML VIAL ONE (07:25)
[2023-09-15] MEDS ORDERED: fentaNYL (PF) 50 MCG/ML 2 ML AMP ONE (07:25)
[2023-09-15] MEDS ORDERED: DEXAMETHASONE SOD PHOSPHATE 4 MG/ML 1 ML VIAL ONE (07:25)
[2023-09-15] MEDS ORDERED: ROPIVACAINE 5 MG/ML 30 ML VIAL ONE (07:25)
[2023-09-15] MEDS: SODIUM CHLORIDE 0.9% 100 ML with ceFAZolin 2,000 MG IV ONE (07:30)
[2023-09-15] MEDS: ceFAZolin 1,000 MG in SODIUM CHLORIDE 0.9% 1,000 ML IRRIGATION ONE (07:48)
--- NOTE | 2023-09-15 08:06 | P.ANPRN ---
Procedure Note - Anesthesia - Nerve Block Performed Right Adductor Canal Single Time Out Performed: Yes Date of Procedure: 09/15/23 Procedure Start Time: 06:57 Procedure Stop Time: 07:04 Location of Patient: PreOp Indication: Acute Post-Operative Pain, Requested by Surgeon Sedation Type: Sedate with meaningful contact maintained Preparation: Sterile Prep Position: Supine Needle Types: Pajunk Needle Gauge: 21 Ultrasound used to visualize needle placement: Yes Ultrasound used to observe medication spread: Yes Injectate: 0.5% Ropivacaine (see comment for volume) (20 ml + 10 ml NS + 4 mg Dexamethsone) Blood Aspirated: No Pain Paresthesia on Injection Noted: No Resistance on Injection: Normal Image Stored and Saved: Yes Events: Uneventful and Well Tolerated
--- NOTE | 2023-09-15 08:07 | P.ANPRN ---
Procedure Note - Anesthesia - Nerve Block Performed Right Popliteal Single Time Out Performed: Yes Date of Procedure: 09/15/23 Procedure Start Time: 07:05 Procedure Stop Time: 07:12 Location of Patient: PreOp Indication: Acute Post-Operative Pain, Requested by Surgeon Sedation Type: Sedate with meaningful contact maintained Preparation: Sterile Prep Position: Left Lateral Needle Types: Pajunk Needle Gauge: 21 Ultrasound used to visualize needle placement: Yes Ultrasound used to observe medication spread: Yes Injectate: 0.5% Ropivacaine (see comment for volume) (20 ml + 10 ml NS + 4 mg Dexamethasone) Blood Aspirated: No Pain Paresthesia on Injection Noted: No Resistance on Injection: Normal Image Stored and Saved: Yes Events: Uneventful and Well Tolerated
[2023-09-15 09:01] VITALS: TEMP 97
--- NOTE | 2023-09-15 09:08 | P.OP ---
Date of Procedure: 09/15/23 Preoperative Diagnosis: Acquired deformity right foot Postoperative Diagnosis: Same Procedure(s) Performed: Talonavicular joint arthrodesis right foot Implants: 5.0 mm fully threaded headless compression screws 2 5 mL bone allograft Anesthesia: DE Surgeon: Marcello Schneider Estimated Blood Loss (ml): 3 Pathology: none sent Condition: stable Disposition: PACU Description of Procedure: Prior to the patient being brought to the operating room, anesthesia administered nerve block on the right lower extremity. The patient was brought into the operating room and placed on table in supine position. Timeout was taken to confirm correct patient identifiers, correct laterally of surgery, and correct procedure. Once all staff in the room were in agreement with the timeout, the patient was induced and placed under general anesthesia. A well- padded tourniquet was placed on the right thigh and then the right leg was prepped and draped in usual manner. The right leg was exsanguinated, the knee flexed, and the tourniquet inflated to 250 mmHg. Attention was directed over the medial side of the right foot. A linear incision was made along the talonavicular joint. The incision was deepened down to the subcutaneous tissue careful to identify, avoid, and retract any neurovascular structures and cauterize any bleeding vessels. Blunt dissection was carried down to the deep fascia and the talonavicular joint capsule. An incision was made through the capsule and fascial structures along the long axis of the talonavicular joint. The deep tissues were sharply reflected off the prosthesis attachments surrounding the joint. Pins were placed into then talus and navicular and then the distractor was placed over the pins and used to open and distract the joint. A rotary bur was used to remove all the articular cartilage and subchondral bone until bleeding medullary bone was exposed. A large K wire was then used to aggressively fenestrate the joint surfaces. Fluoroscopy was utilized to make sure that the surfaces were in agreement and there would be even compression across the arthrodesis site. Next 5 mL of bone allograft was placed between the segments of the arthrodesis. Holding the foot in a correct position a guidewire for a 5.0 mm fully threaded headless screw was inserted at the medial aspect of the medial cuneiform where it articulated with the navicular. The wire was advanced through the navicular, across the arthrodesis site, and into the talar body. AP and lateral views on fluoroscopy exam showed that the wire was properly positioned and that the deformity of the foot was corrected. Drilling was completed to just past the arthrodesis site and then a 5.0 mm fully threaded headless screw was placed over the wire and advanced until the proximal threads engaged the navicular and provided compression across the arthrodesis site. Fluoroscopic imaging showed proper placement of the screw. The guidewire was removed and then used for the second screw placement. Under fluoroscopic visualization, the wire was placed at the lateral side of the navicular through the dorsum of the foot. The wire was advanced across the arthrodesis site into the talar body so that it crossed the first screw. Or scopic imaging showed proper placement of the wire both on AP and lateral views. Over drilling was done to just the arthrodesis site. Another 5.0 mm fully threaded headless screw was inserted over the guidewire and advanced until the proximal threads engaged the cortex of the navicular and provided compression across the arthrodesis site. Final fluoroscopic imaging showed that there was excellent compression at the arthrodesis site as well as maintain correction of the deformity. All wires were removed and the wounds thoroughly irrigated with antibiotic saline. Deep closure on the medial wound was done with 0 Vicryl. Subcutaneous closure was done with 4-0 Monocryl. Skin closure was done with 4-0 Stratafix in a running subcuticular manner. Dermal glue was used to close the dorsal incision and was also applied to the medial incision. Steri-Strips are placed over both incisions. An Arthrex jumpstart dressing was placed over both incisions and then a bulky dry dressings applied to the right leg. The tourniquet was released and capillary refill return to all digits on the right foot. The patient was then placed in a well-padded, well molded plaster posterior mold/sugar tong splint. The ankle and foot were held in neutral position until the splint was dried. Anesthesia was reversed and the patient was taken recovery with vital signs stable.
[2023-09-15 10:02] VITALS: BP 122/84; PULSE 72
[2023-09-15 10:03] VITALS: RESP 8
== END 2023-09-15 10:32 | disposition home or self-care (01) ==
LOC: OR 05:35
PROVIDERS: ATTEND Podiatrist
DX: M21.6X1 Other acquired deformities of right foot (principal); G89.18 Other acute postprocedural pain; F32.A Depression, unspecified; E03.9 Hypothyroidism, unspecified; J39.8 Other specified diseases of upper respiratory tract; I10 Essential (primary) hypertension; E78.5 Hyperlipidemia, unspecified; M19.90 Unspecified osteoarthritis, unspecified site; F41.9 Anxiety disorder, unspecified; K21.9 Gastro-esophageal reflux disease without esophagitis; Z88.8 Allergy status to other drugs, medicaments and biological substances; Z88.4 Allergy status to anesthetic agent; Z79.82 Long term (current) use of aspirin; Z79.890 Hormone replacement therapy; Z90.49 Acquired absence of other specified parts of digestive tract; Z98.890 Other specified postprocedural states; Z88.3 Allergy status to other anti-infective agents; Z88.5 Allergy status to narcotic agent
CPT/HCPCS: 28740; 64447; 64445; C1713; C1734; J2250; J1100; J2405; J0690; J2001; J3010; J2795; J2704

== ENCOUNTER → 2023-11-15 | Outpatient (CLI) | payer MEDICARE ==
--- NOTE | 2023-11-16 08:59 | MM ---
Reason for Exam: Screening (asymptomatic). Last mammogram was performed 1 year(s) and 1 month(s) ago. Patient History: Menarche at age 13. First Full-Term at age 22. Hysterectomy at age 52. Postmenopausal. Patient used Estrogen for 1 year. Patient used Progesterone for 1 year. 2008, Benign Stereotactic Core Biopsy on the right side. 2006, Benign Excisional Biopsy on the right side. Excisional Biopsy on the Right side. Risk Values: Marce 5 year model risk: 2.6%. Prior Study Comparison: 09/16/2020 Bilateral Screening Mammogram, [facility]. 10/11/2021 Bilateral Screening Mammogram, [facility]. 11/02/2022 Bilateral MG 3D screening mammo w/cad, [facility]. Tissue Density: The breasts are heterogeneously dense, which may obscure small masses. Findings: Analyzed By CAD. No suspicious grouped calcifications. There is a 6 mm nodule in the central lower margin of the right breast. Benign appearing calcifications. Stable benign appearing lymph nodes bilateral breast. Overall Assessment: Incomplete: need additional imaging evaluation, BI-RAD 0 Management: Diagnostic Mammogram of the right breast. . Patient should continue monthly self-breast exams. A clinical breast exam by your physician is recommended on an annual basis. This exam should not preclude additional follow-up of suspicious palpable abnormalities. Note on Marce scores and lifetime risk: 1. A Marce score greater than 3% is considered moderate risk. If this is the case, consider specialist referral to assess eligibility for a risk reducing agent. 2. If overall lifetime risk for the development of breast cancer is 20% or higher, the patient may qualify for future screening with alternating mammogram and breast MRI. Electronically signed and approved by: Jamil Lopez M.D. Radiologis
== END | disposition home or self-care (01) ==
LOC: RADMAMWWP 10:26
PROVIDERS: ATTEND Family Medicine
DX: Z12.31 Encounter for screening mammogram for malignant neoplasm of breast (principal); Z78.0 Asymptomatic menopausal state
CPT/HCPCS: 77063; 77067

== ENCOUNTER → 2023-11-17 | Outpatient (CLI) | payer MEDICARE ==
--- NOTE | 2023-11-17 09:56 | MM ---
Reason for Exam: Additional evaluation requested from abnormal screening. Last screening mammogram was performed less than 1 month ago. Patient History: Menarche at age 13. First Full-Term at age 22. Hysterectomy at age 52. Postmenopausal. Patient used Estrogen for 1 year. Patient used Progesterone for 1 year. 2008, Benign Stereotactic Core Biopsy on the right side. 2006, Benign Excisional Biopsy on the right side. Excisional Biopsy on the Right side. Risk Values: Marce 5 year model risk: 2.6%. NCI Lifetime model risk: 5.3%. Prior Study Comparison: 11/28/1995 Screening Mammogram, Unknown. 06/13/2008 Screening Mammogram, Unknown. 08/23/2010 Screening Mammogram, Unknown. 05/17/2018 Right Diagnostic Mammogram, [facility]. 05/17/2018 Right Diagnostic Ultrasound, [facility]. 06/24/2019 Bilateral Screening Mammogram, [facility]. 09/16/2020 Bilateral Screening Mammogram, [facility]. 10/11/2021 Bilateral Screening Mammogram, [facility]. 11/02/2022 Bilateral MG 3D screening mammo w/cad, [facility]. 11/15/2023 Bilateral MG 3D screening mammo w/cad, [facility]. Tissue Density: Right: The breasts are heterogeneously dense, which may obscure small masses. Findings: Analyzed By CAD. Chronic nodularity right breast is unchanged dating back to 2013. No suspicious nodules seen. Overall Assessment: Benign, BI-RAD 2 Management: Screening Mammogram of both breasts in 1 year. . Results were given to the patient verbally at the time of exam. Patient should continue monthly self-breast exams. A clinical breast exam by your physician is recommended on an annual basis. This exam should not preclude additional follow-up of suspicious palpable abnormalities. Note on Marce scores and lifetime risk: 1. A Marce score greater than 3% is considered moderate risk. If this is the case, consider specialist referral to assess eligibility for a risk reducing agent. 2. If overall lifetime risk for the development of breast cancer is 20% or higher, the patient may qualify for future screening with alternating mammogram and breast MRI. Electronically signed and approved by: Shay Rosales M.D. Radiologis
== END | disposition home or self-care (01) ==
LOC: RADMAMWWP 09:17
PROVIDERS: ATTEND Family Medicine
DX: R92.331 Mammographic heterogeneous density, right breast (principal); Z78.0 Asymptomatic menopausal state
CPT/HCPCS: 77065; G0279; 77061

== ENCOUNTER → 2024-05-25 | Outpatient (CLI) | payer MEDICARE ==
--- NOTE | 2024-05-28 17:54 | MR ---
EXAMINATION TYPE: MR cervical spine wo con DATE OF EXAM: 05/25/2024 COMPARISON: No direct comparisons HISTORY: Tremors, headaches, Alzheimer's disease TECHNIQUE: Multiplanar, multisequence images of the cervical spine were acquired without contrast. FINDINGS: Alignment: The cervical vertebral bodies have preserved heights. Grade 1 anterolisthesis of C3 on C4 and C4 on C5. Bones: Bone signal is within normal limits. Prominent anterior osteophytosis from C4 through C7. Cord: The spinal cord is unremarkable with regards to their signal intensity and morphology. Discs: Multilevel disc desiccation is present. C2-C3: No significant disc pathology. The spinal canal is patent. No neural foraminal stenosis. C3-C4: Grade 1 anterolisthesis with uncovering of the disc. Posterior disc osteophyte complex with mi ld effacement of the anterior thecal sac. Uncovertebral joint hypertrophy. Moderate bilateral neurofo raminal stenosis. C4-C5: Grade 1 anterolisthesis with uncovering of the disc. Posterior disc osteophyte complex with mi ld moderate effacement of the anterior thecal sac. Uncovertebral joint hypertrophy. Right neuroforame n is patent. Mild to moderate left neural foraminal stenosis. C5-C6: Posterior disc suspect complex with moderate effacement of the anterior thecal sac. Uncoverteb ral joint hypertrophy with mild to moderate right neural foraminal stenosis. The left neural foramen is patent. C6-C7: Broad-based disc bulge with no significant effacement of the anterior thecal sac. No neural fo raminal stenosis. C7-T1: Broad-based disc bulge with no significant effacement of the anterior thecal sac. No neural fo raminal stenosis. Other: None. IMPRESSION: 1. Multilevel degenerative disc disease and uncovertebral joint hypertrophy. Most prominent at C3-C6 as described above. No definitive disc herniation. 2. Grade 1 anterolisthesis of C3 on C4 and C4 on C5. [facility], , 05/28/2024 5:51 PM
== END | disposition home or self-care (01) ==
LOC: RADMRIMAIN 09:36
PROVIDERS: ATTEND Psychiatry & Neurology Neurology
DX: G30.9 Alzheimer's disease, unspecified
CPT/HCPCS: 72141

== ENCOUNTER 2024-05-31 13:46 | Emergency (ER) | payer MEDICARE ==
[2024-05-31 14:02] VITALS: RESP 18; TEMP 98.3
--- NOTE | 2024-05-31 14:35 | ED ---
General Adult HPI - General Chief complaint: Chest Pain Stated complaint: Fall, head injury Time Seen by Provider: 05/31/24 14:10 Source: patient, RN notes reviewed, old records reviewed Mode of arrival: wheelchair Limitations: no limitations - History of Present Illness Initial comments: This is a 79-year-old female who presents to the emergency department stating she fell and hit her head 3 days ago. Patient states she did not lose consciousness but she still has a headache. Patient states she has a little neck soreness more on the left and none in the center. Patient denies numbness weakness. Patient denies any chest pain. Triage note states that she mention chest heaviness but when I spoke with the patient and the they both leslie ed that she ever had any chest pain. Patient did get a COVID shot today. Patient denies shortness of breath patient denies fever chills or cough patient denies abdominal pain patient has back pain. Patient also complained of some right hip soreness - Related Data Home Medications Medication Instructions Recorded Confirmed Aspirin 81 mg PO HS 10/22/15 05/31/24 Simvastatin [Zocor] 20 mg PO HS 10/22/15 05/31/24 Vitamin E (Dl,Tocopheryl Acet) 400 unit PO HS 10/22/15 05/31/24 [Vitamin E (400 Iu = 180 mg)] amLODIPine BESYLATE [Norvasc] 5 mg PO QAM 10/22/15 05/31/24 Ascorbic Acid [Vitamin C] 500 mg PO DAILY 04/19/19 05/31/24 Pramipexole [Mirapex] 1 mg PO QAM 04/19/19 05/31/24 Venlafaxine HCl ER [Effexor XR] 150 mg PO QAM 04/19/19 05/31/24 traZODone HCL [Desyrel] 150 mg PO HS 09/25/19 05/31/24 lamoTRIgine [LaMICtal] 200 mg PO BID 03/10/21 05/31/24 Deutetrabenazine [Austedo] 12 mg PO HS 12/29/22 05/31/24 Oxybutynin Chloride [oxyBUTYnin 10 mg PO HS 12/29/22 05/31/24 chloride ER] Levothyroxine Sodium [Synthroid] 100 mcg PO QAM 09/08/23 05/31/24 Cholecalciferol [Vitamin D3 (25 75 mcg PO DAILY 05/31/24 05/31/24 Mcg = 1000 Iu)] Cyanocobalamin (Vitamin B-12) 2,000 mcg PO DAILY 05/31/24 05/31/24 [Vitamin B-12] Deutetrabenazine [Austedo] 24 mg PO QAM 05/31/24 05/31/24 Docusate [Colace] 100 mg PO DAILY 05/31/24 05/31/24 Heartburn (Unknown Otc) 30 mg PO HS 05/31/24 05/31/24 L.acidoph,Paracasei, B.lactis 1 cap PO DAILY 05/31/24 05/31/24 [Probiotic] LORazepam [Ativan] 1 mg PO BID 05/31/24 05/31/24 Latanoprost [Latanoprost 0.005%] 1 drop BOTH EYES HS 05/31/24 05/31/24 Olopatadine HCl [Pataday Once 1 drop BOTH EYES DAILY 05/31/24 05/31/24 Daily Relief] Omeprazole [PriLOSEC] 20 mg PO QAM 05/31/24 05/31/24 Pramipexole [Mirapex] 0.5 mg PO HS 05/31/24 05/31/24 Venlafaxine HCl ER [Effexor Xr] 75 mg PO DAILY 05/31/24 05/31/24 polyethylene glycoL 3350 [Miralax] 17 gm PO DAILY 05/31/24 05/31/24 Allergies Allergy/AdvReac Type Severity Reaction Status Date / Time aripiprazole [From Abilify] AdvReac Nausea & Verified 05/31/24 15:23 Vomiting codeine AdvReac SEVERE Verified 05/31/24 15:23 VOMITNG, PASSED OUT Review of Systems ROS Statement: Those systems with pertinent positive or pertinent negative responses have been documented in the HPI. ROS Other: All systems not noted in ROS Statement are negative. Past Medical History Past Medical History: GERD/Reflux, Hyperlipidemia, Hypertension, Neurologic Disorder, Osteoarthritis (OA), Thyroid Disorder Additional Past Medical History / Comment(s): rt ankle collapse,Tardive Dyskinesia-uses a cane and walker,CONSTIPATION, HAS TROUBLE SWALLOWING AT TIMES", tremors History of Any Multi-Drug Resistant Organisms: None Reported Past Surgical History: Hysterectomy, Joint Replacement, Tubal Ligation Additional Past Surgical History / Comment(s): CATARACT -BILATERAL , RIGHT SHOULDER, TOTAL LEFT KNEE. Esophageal dilatation,lt hand surgery Past Anesthesia/Blood Transfusion Reactions: No Reported Reaction, Motion Sickness Additional Past Anesthesia/Blood Transfusion Reaction / Comment(s): no hx of blood transfusion Past Psychological History: Anxiety, Bipolar, Depression Smoking Status: Never smoker - Past Family History Mother Family Medical History: Congestive Heart Failure (CHF), CVA/TIA Brother(s) Family Medical History: Cancer Additional Family Medical History / Comment(s): THROAT CANCER General Exam - General Exam Comments Initial Comments: GENERAL: Patient is well-developed and well-nourished. Patient is nontoxic and well- hydrated and is in mild distress. Patient has a small hematoma to the occipital region of her scalp ENT: Neck is soft and supple. No significant lymphadenopathy is noted. Oropharynx is clear. Moist mucous membranes. Neck has full range of motion without eliciting any pain. EYES: The sclera were anicteric and conjunctiva were pink and moist. Extraocular movements were intact and pupils were equal round and reactive to light. Eyelids were unremarkable. PULMONARY: Unlabored respirations. Good breath sounds bilaterally. No audible rales rhonchi or wheezing was noted. CARDIOVASCULAR: There is a regular rate and rhythm without any murmurs gallops or rubs. ABDOMEN: Soft and nontender with normal bowel sounds. SKIN: Skin is clear with no lesions or rashes and otherwise unremarkable. NEUROLOGIC: Patient is alert and oriented x3. Cranial nerves II through XII are grossly intact. Motor and sensory are also intact. Normal speech, volume and content. Symmetrical smile. MUSCULOSKELETAL: Normal extremities with adequate strength and full range of motion. Hip has some lateral tenderness but does have full range of motion LYMPHATICS: No significant lymphadenopathy is noted PSYCHIATRIC: Normal psychiatric evaluation. Limitations: no limitations Course Vital Signs 05/31/24 13:59 Temperature 98.3 F Pulse Rate 92 Respiratory 18 Rate Blood Pressure 116/85 O2 Sat by Pulse 93 L Oximetry Medical Decision Making - Medical Decision Making Was pt. sent in by a medical professional or institution (, PA, EMD SPECIAL EDUCATION TEACHER, urgent care, hospital, or fci...) When possible be specific @ -No Did you speak to anyone other than the patient for history (EMS, parent, family, police, friend...)? What history was obtained from this source @ -No Did you review nursing and triage notes (agree or disagree)? Why? @ -I reviewed and agree with nursing and triage notes Were old charts reviewed (outside hosp., previous admission, EMS record, old EKG, old radiological studies, urgent care reports/EKG's, fci records)? Report findings @ -No old charts were reviewed Differential Diagnosis? @ -Subdural hemorrhage, epidural hemorrhage, skull fracture, cervical spine fracture, intraparenchymal hemorrhage, this is not an all-inclusive list. EKG interpreted by me (3pts min.). @ -As above X-rays interpreted by me (1pt min.). @ -X-ray of the hip shows no acute abnormality CT interpreted by me (1pt min.). @ -CT of the brain shows no acute normality. CT of the C-spine shows no acute normality U/S interpreted by me (1pt. min.). @ -None done What testing was considered but not performed or refused? (CT, X-rays, U/S, labs)? Why? @ -None What meds were considered but not given or refused? Why? @ -None Did you discuss the management of the patient with other professionals (professionals i.e. , PA, EMD SPECIAL EDUCATION TEACHER, lab, RT, psych nurse, child welfare social worker, lip cutter and scorer, teacher, defence force senior officer, catalytic case operator)? Give summary @ -No Was smoking cessation discussed for >3mins.? @ -No Was critical care preformed (if so, how long)? @ -No Were there social determinants of health that impacted care today? How? (Homelessness, low income, unemployed, alcoholism, drug addiction, transportation, low edu. Level, literacy, decrease access to med. care, senior living, rehab)? @ -No Was there de-escalation of care discussed even if they declined (Discuss DNR or withdrawal of care, Hospice)? DNR status @ -No What co-morbidities impacted this encounter? (DM, HTN, Smoking, COPD, CAD, Cancer, CVA, ARF, Chemo, Hep., AIDS, mental health diagnosis, sleep apnea, morbid obesity)? @ -None Was patient admitted / discharged? Hospital course, mention meds given and route, prescriptions, significant lab abnormalities, going to OR and other pertinent info. @ -I went back to reevaluate the patient and she is able to move the hip with full range of motion. Patient still states she has a mild headache. Undiagnosed new problem with uncertain prognosis? @ -No Drug Therapy requiring intensive monitoring for toxicity (Heparin, Nitro, Insulin, Cardizem)? @ -No Were any procedures done? @ -No Diagnosis/symptom? @ -Fall Acute, or Chronic, or Acute on Chronic? @ -Acute Uncomplicated (without systemic symptoms) or Complicated (systemic symptoms)? @ -Uncomplicated Side effects of treatment? @ -No Exacerbation, Progression, or Severe Exacerbation? @ -No Poses a threat to life or bodily function? How? (Chest pain, USA, MS, pneumonia, PE, COPD, DKA, ARF, appy, cholecystitis, CVA, Diverticulitis, Homicidal, Suicidal, threat to staff... and all critical care pts) @ -No Diagnosis/symptom? @ -Head injury Acute, or Chronic, or Acute on Chronic? @ -Acute Uncomplicated (without systemic symptoms) or Complicated (systemic symptoms)? @ -Complicated Side effects of treatment? @ -None Exacerbation, Progression, or Severe Exacerbation] @ -No Poses a threat to life or bodily function? @ -No Diagnosis/symptom? @ -Hip contusion Acute, or Chronic, or Acute on Chronic? @ -Acute Uncomplicated (without systemic symptoms) or Complicated (systemic symptoms)? @ -Uncomplicated Side effects of treatment? @ -None Exacerbation, Progression, or Severe Exacerbation] @ -No Poses a threat to life or bodily function? @ -No Disposition Clinical Impression: Fall, Contusion, hip, Head injury Disposition: HOME SELF-CARE Condition: Good Instructions (If sedation given, give patient instructions): Hip Contusion (ED), Head Injury (ED) Is patient prescribed a controlled substance at d/c from ED?: No Referrals: Luis Alvarez DO [Primary Care Provider] - 1-2 days Time of Disposition: 16:23
--- NOTE | 2024-05-31 15:23 | CT ---
EXAMINATION TYPE: CT brain [place] wo con DATE OF EXAM: 05/31/2024 COMPARISON: Head CT dated 09/22/2018 CLINICAL INDICATION: Female, 79 years old with history of Trauma; [facility], fall TECHNIQUE: CT scan of the head and cervical spine are performed without contrast. CT DLP: 1406.4 mGycm Automated exposure control for dose reduction was used. Findings: Head CT: Ventricles, basal cisterns and sulci over the convexities are moderately enlarged consistent with mod erate generalized atrophy. No abnormal density is seen throughout the brain parenchyma and there is n o acute intra or extra-axial hemorrhage. There is no mass effect or shift of midline structures. Posterior fossa including the brainstem, fourth ventricle and cerebellar pontine angles are grossly n ormal. The intraorbital contents appear normal and symmetric. Visualized paranasal sinuses are well aerated. CT cervical spine: Craniovertebral junction relationships and prevertebral soft tissues are normal. The cervical vertebral segments are normal in height. There is a 2 to 3 mm anterolisthesis of C3 on C 4. There is loss of the normal cervical doses. There is moderate disc space narrowing and spondylosis at the C4-5, C5-6 and C6-7 disc consistent with degenerative disc disease. There is moderate degenerative change of the facet joints and uncovertebral joints in the mid lower c ervical spine. There is moderate bony neural foraminal encroachment at C3-4 on the right, mild at C4- 5 bilaterally, mild at C5-6 on the left. There is no bony encroachment of the cervical canal The paraspinal soft tissues unremarkable. IMPRESSION: 1. Head CT: No acute bleed or mass effect. 2. CT cervical spine: No acute trauma. Degenerative changes as described above. [facility], , 05/31/2024 3:20 PM
--- NOTE | 2024-05-31 15:43 | XR ---
EXAMINATION TYPE: XR Hip 2 views RT and AP Pelvis DATE OF EXAM: 05/31/2024 COMPARISON: NONE HISTORY: 79-year-old female with fall 3 days ago with pain FINDINGS: Prominent degenerative change lower lumbar spine. Mild degenerative change SI joints. There is mild d egenerative spurring in both hips but with relative preservation of hip joint space. Some sutures are noted projecting over the right iliac wing. There is osteopenia limiting the evaluation. However, no displaced fracture is seen. Pubic symphysis is intact. IMPRESSION: Osteopenia limiting the evaluation. No displaced fracture is seen. If patient nonweightbe aring or if there is concern for an occult osseous injury, MRI can provide more sensitive evaluation. [facility], , 05/31/2024 3:41 PM
[2024-05-31 16:30] VITALS: BP 138/78; PULSE 88
== END 2024-05-31 16:31 | disposition home or self-care (01) ==
LOC: EC 13:46
CPT/HCPCS: 70450; 72125; 73502; 99285

== ENCOUNTER → 2024-06-12 | Outpatient (CLI) | payer MEDICARE ==
[~2024-06-12] MED LIST changes: +IODINE/POTASSIUM IODIDE 14 ML BOTTLE ONE; -LACTATED RINGERS 1,000 ML IV SCH; -LIDOCAINE 1% 20 ML VIAL (10MG/ML) FOR IV START INTRADERMA PRN
--- NOTE | 2024-06-13 23:01 | NM ---
EXAMINATION TYPE: NM DatScan Brain SPECT DATE OF EXAM: 06/12/2024 COMPARISON: NONE CLINICAL INDICATION: Female, 79 years old with history of R25.1 TREMOR, UNSPECIFIED; TECHNIQUE: 10 drops of Lugol's solution was administered 1 hour prior to injection as a thyroid bloc dayna agent. After the administration of 4.33 mCi I-123 Ioflupane DaTscan. Images obtained 3 hours p ost injection. SPECT images of the brain were acquired with axial and coronal reconstructions. FINDINGS: The DaTSCAN demonstrates normal uptake of tracer throughout the striata. Consequently there is no evidence of loss of the pre-synaptic dopaminergic terminals on this investig ation. IMPRESSION: This normal appearance is against a diagnosis of idiopathic Parkinson?s disease(PD)or a Parkinsonian syndrome (PS) and is seen in healthy individuals and also patients with essential tremor (ET), drug induced parkinsonism, and vascular pseudo-parkinsonism. [facility], , 06/13/2024 10:58 PM
== END | disposition home or self-care (01) ==
LOC: RADNMMAIN 10:26
PROVIDERS: ATTEND Psychiatry & Neurology Neurology
DX: G30.9 Alzheimer's disease, unspecified (principal); G21.19 Other drug induced secondary parkinsonism; G25.0 Essential tremor
CPT/HCPCS: 78803; A9584

== ENCOUNTER → 2024-11-19 | Outpatient (CLI) | payer MEDICARE ==
--- NOTE | 2024-11-19 09:01 | MM ---
Reason for Exam: Screening (asymptomatic). Last screening mammogram was performed 12 month(s) ago. Patient History: Menarche at age 13. First Full-Term at age 22. Hysterectomy at age 52. Postmenopausal. Patient used Estrogen for 1 year. Patient used Progesterone for 1 year. 2008, Benign Stereotactic Core Biopsy on the right side. 2006, Benign Excisional Biopsy on the right side. Excisional Biopsy on the Right side. Risk Values: Marce 5 year model risk: 2.6%. NCI Lifetime model risk: 4.9%. Prior Study Comparison: 11/02/2022 Bilateral MG 3D screening mammo w/cad, [facility]. 11/15/2023 Bilateral MG 3D screening mammo w/cad, [facility]. 11/17/2023 Right MG 3D work up w/cad RT, [facility]GED WITH [facility]. Tissue Density: The breasts are heterogeneously dense, which may obscure small masses. Findings: Analyzed By CAD. There are benign-appearing round and dystrophic calcifications bilaterally redemonstrated. Benign-appearing bilateral axillary lymph nodes are redemonstrated. There is no suspicious new group of microcalcifications or new suspicious mass in either breast. Overall Assessment: Benign, BI-RAD 2 Management: Screening Mammogram of both breasts in 1 year. . Patient should continue monthly self-breast exams. A clinical breast exam by your physician is recommended on an annual basis. This exam should not preclude additional follow-up of suspicious palpable abnormalities. Note on Marce scores and lifetime risk: 1. A Marce score greater than 3% is considered moderate risk. If this is the case, consider specialist referral to assess eligibility for a risk reducing agent. 2. If overall lifetime risk for the development of breast cancer is 20% or higher, the patient may qualify for future screening with alternating mammogram and breast MRI. [facility], , 11/19/2024 8:58 AM. Electronically signed and approved by: Xiang Gilliland M.D.
== END | disposition home or self-care (01) ==
LOC: RADMAMWWP 08:29
PROVIDERS: ATTEND Family Medicine
DX: Z12.31 Encounter for screening mammogram for malignant neoplasm of breast (principal); R92.333 Mammographic heterogeneous density, bilateral breasts; R92.1 Mammographic calcification found on diagnostic imaging of breast; Z78.0 Asymptomatic menopausal state
CPT/HCPCS: 77063; 77067